=== PATIENT | female | born 1990 | race Caucasian/White ===

== ENCOUNTER 2016-11-21 19:23 | Emergency (ER) | payer MEDICAID, OTHER ==
[2016-11-21 19:59] VITALS: BP 110/69
--- NOTE | 2016-11-21 20:24 | UC ---
Abdominal Pain Female HPI - HPI Summary HPI Summary: The patient comes in today for: 1. Abdominal pain: Onset: 3 days ago getting stronger over the last 3 days. Palliative/provocative: Pressing on it makes it worse. Just sitting it is better. Picking up daughter makes it worse. Quality: Cramping. Region: LLQ Severity: 2/10 initially, and 4/10 this AM. Now at just sittin/10. With pushin/10 Time: Constant. Associated symptoms: LMP: 2 weeks ago. Vaginal discharge: Normal. Vomiting: None, but nausea is present. Diarrhea: None. Fevers: None Previous abdominal pain (history of ovarian cysts and appendectomy). Home treatment: Advil and Tylenol. * - History of Current Complaint Chief Complaint: UCAbdominalPain Stated Complaint: PAIN IN ABDOMIN Time Seen by Provider: 11/21/16 20:13 Hx Obtained From: Patient Hx Last Menstrual Period: 2 WEEKS AGO ?: No Allergies/Adverse Reactions: Allergies Allergy/AdvReac Type Severity Reaction Status Date / Time Prochlorperazine Allergy Severe facial Verified 11/21/16 19:59 [From Compazine] droop, slurred speech Sulfa Drugs Allergy Severe Hives Verified 11/21/16 19:59 Clindamycin Allergy Mild Rash Verified 11/21/16 19:59 Home Medications: Home Medications Amitriptyline TAB* [Elavil TAB*] 11/21/16 [History Confirmed 11/21/16] Ibuprofen TAB* [Advil TAB*] 600 mg PO PRN 11/21/16 [History] PMH/Surg Hx/FS Hx/Imm Hx Endocrine History Of: Denies: Diabetes, Thyroid Disease Cardiovascular History Of: Reports: Cardiac Disorders - Tachycardia. Heart muscle which "stiffens" on K+ Denies: Hypertension, Pacemaker/ICD, Congestive Heart Failure Respiratory History Of: Reports: Asthma Denies: COPD, Bronchitis, Pneumonia, Pulmonary Embolism GI/ History Of: Reports: Kidney Stones - LAST STONE 1 YR AGO Denies: Ulcer, Renal Disease Neurological History Of: Reports: Seizures - pseudo seizures and "seizures when I was younger--18.", Migraine Denies: TIA, CVA, Dementia Psychological History Of: Reports: Anxiety, Depression, Bipolar Disorder, Post Traumatic Stress Disorder Denies: Schizophrenia Cancer History Of: Denies: Lung Cancer, Colorectal Cancer, Breast Cancer, Prostate Cancer, Cervical Cancer Other History Of: Negative For: HIV, Hepatitis B, Hepatitis C, Anticoagulant Therapy - Surgical History Surgical History: Yes Surgery Procedure, Year, and Place: APPENDECTOMY, 08/2014, Right ULNAR COLLATERAL LIGAMENT Sx 07/2015 - Family History Known Family History: Positive: Cardiac Disease, Hypertension, Other - Migraines - Social History Occupation: Employed Full-time Alcohol Use: None Substance Use Type: None Smoking Status (MU): Current Every Day Smoker Type: Cigarettes Amount Used/How Often: 1/2 PPD Length of Time of Smoking/Using Tobacco: 1.5 weeks Have You Smoked in the Last Year: Yes When Did the Patient Quit Smoking/Using Tobacco: Quitting currently Household Exposure Type: Cigarettes - Immunization History Most Recent Influenza Vaccination: 07/2015 Most Recent Tetanus Shot: 05/2014 Most Recent Pneumonia Vaccination: none Review of Systems Constitutional: Negative Skin: Negative Eyes: Negative ENT: Negative Respiratory: Negative Gastrointestinal: Abdominal Pain Genitourinary: Negative All Other Systems Reviewed And Are Negative: Yes Physical Exam Triage Information Reviewed: Yes Appearance: Well-Appearing - She is smiling at times and animated., No Pain Distress, Well-Nourished Vital Signs: Initial Vital Signs Temp 98.1 F 11/21/16 19:55 Pulse 82 11/21/16 19:55 Resp 16 11/21/16 19:55 BP 110/69 11/21/16 19:55 Pulse Ox 100 11/21/16 19:55 Vital Signs Reviewed: Yes Eyes: Positive: Conjunctiva Clear. Negative: Discharge ENT: Positive: Hearing grossly normal. Negative: Pharyngeal erythema, Nasal congestion, Nasal drainage, TM bulging, TM dull, TM red, Tonsillar swelling, Tonsillar exudate Dental: Negative: Gross Decay/Caries @, Dental Fracture @ Neck: Positive: Supple, Nontender, No Lymphadenopathy. Negative: Nuchal Rigidity Respiratory: Positive: Lungs clear, No respiratory distress, No accessory muscle use. Negative: Crackles, Wheezing Cardiovascular: Positive: RRR, No Murmur Abdomen Description: Positive: No Organomegaly, Soft, Peritoneal Signs. Negative: Nontender - She has tenderness in the lower left quadrant. Her exam is hampered by increased adipose tissue. There is percussion tenderness and rebound. No masses or guarding or distension., CVA Tenderness (L), Distended, Guarding, McBurney's Point Tenderness, Pulsatile Mass Bowel Sounds: Positive: Present Musculoskeletal: Positive: Strength Intact, ROM Intact, No Edema Neurological: Positive: Alert, Muscle Tone Normal Psychological: Positive: Age Appropriate Behavior, Consolable Skin: Negative: rashes, breakdown Diagnostics - Laboratory Diagnostic Studies Completed/Ordered: Urine screen: Specific gravity: 1.020. WBC: 25. Nitrite: (-). Blood: (-). Protein: (-). Glucose: (-) Abd Pain Female Course/Dx - Course Course Of Treatment: The patient was told that I don't know for sure what is causing her abdominal. pain. The patient was also told that there are many causes for abdominal pain--. some which are benign and some which are life- threatening. Furthermore, it was. mentioned that the life-threatening causes of abdominal pain can present with. minimal, atypical, or even no symptoms. Becasue of these facts and the fact. that we don't have here all the testing methods commonly used to assess abdominal. pain, and their timely resuts, my recommendation is for the patient to go to. the [facility] ER. She was told of her options. At this time she wants to go home and call her primary care provider in the morning. She states that if she gets worse, she will go to the ER. - Differential Dx/Diagnosis Differential Diagnosis: Constipation, Other - zac Provider Diagnoses: Left lower quadrant abdominal pain etiology undetermined. Discharge - Discharge Plan Condition: Stable Disposition: AGAINST MEDICAL ADVICE Patient Education Materials: Acute Abdominal Pain (ED) Referrals: Alexandra Yarbrough, DO [Primary Care Provider] - As Soon As Possible (If you are not going to the ER tonight, please see your primary care provider as soon as you can. If you get worse, please re-consider going to the ER.)
== END 2016-11-21 20:55 | disposition left against medical advice (07) ==
LOC: UCEAST 19:23
DX: R10.32 Left lower quadrant pain (principal); Z88.1 Allergy status to other antibiotic agents; Z88.0 Allergy status to penicillin; Z88.8 Allergy status to other drugs, medicaments and biological substances; F17.210 Nicotine dependence, cigarettes, uncomplicated
CPT/HCPCS: 81002; 87086; 99212; G0463

== ENCOUNTER 2016-11-24 17:14 | Emergency (ER) | payer OTHER ==
[2016-11-24] MEDS ORDERED: Ondansetron INJ* 2 MG/ML VIAL IV ONE (19:06)
[2016-11-24] MEDS ORDERED: Morphine INJ* 4 MG/ML 1 ML CARPUJECT IV ONE (19:06)
[2016-11-24 19:33] LABS: Hematocrit 44 % (35-47); Hemoglobin 14.6 g/dl (12.0-16.0); Mean Corpuscular HGB Conc 33 g/dl (31-36); Mean Corpuscular Hemoglobin 26 pg (27-31); Mean Corpuscular Volume 80 fL (80-97); Mean Platelet Volume 9 um3 (7.4-10.4); Red Blood Count 5.54 10^6/ul (4.0-5.4); Red Cell Distribution Width 14 % (10.5-15); White Blood Count 10.3 10^3/ul (3.5-10.8)
[2016-11-24 19:48] LABS: Albumin 4.3 g/dL (3.2-5.2); BUN/Creatinine Ratio 11.1 (8-20); Calcium 9.5 mg/dL (8.6-10.3); EGFR African American 96.6 (>60); EGFR Non-African American 75.1 (>60); Globulin 3.3 g/dL (2-4); Potassium 3.7 mmol/L (3.5-5.0); Total Bilirubin 0.3 mg/dL (0.2-1.0); Total Protein 7.6 g/dL (6.4-8.9)
--- NOTE | 2016-11-24 21:11 | RAD ---
INDICATION: IV infiltration. Assess for potential vascular compromise COMPARISON: None TECHNIQUE: Duplex interrogation of the upper extremity was performed. FINDINGS: There is arterial patency documented from the subclavian artery through the radial/ulnar arteries. The velocities are normal normal and the waveforms are normal triphasic. The arterial velocities in CM per second are as follows: Subclavian artery-122; axillary artery-107; brachial artery-121; brachial artery at antecubital fossa-110; radial artery 55; ulnar artery 52 cm/s. There is diffuse fluid in the antecubital fossa but no significant localized hematoma. The largest area of fluid measures approximately 3 x 0.7 cm. IMPRESSION: Duplex interrogation of the arteries of the right upper extremity show no evidence of vascular compromise. There is no localized fluid collection at the site of infiltration but there is fluid infiltrating the soft tissues near the antecubital fossa.
--- NOTE | 2016-11-24 21:37 | HP ---
HISTORY AND PHYSICAL: DATE OF ADMISSION: 11/24/16 CHIEF COMPLAINT: Right arm pain. HISTORY OF PRESENT ILLNESS: Briefly, Paulette Tee is a 26-year-old female who was at CT earlier this morning when she was getting IV placed for a CT scan with contrast. The IV was placed under ultrasound guidance and was reportedly "deep". The IV extravasated and 139 cc of contrast were administered in the antecubital fossa. She immediately experienced numbing of the tips of the thumb and index finger. She had a lot of pain and paresthesias throughout the arm. She was initially monitored until about noon and then she was sent home with warm packs and told to elevate the arm. She has been elevating. She went to her class and tried to work through the pain. She has been having an increasing amount of pain. The pain and the swelling have worsened. It is beginning to track up the medial aspect of the arm. She has also noted an increase in numbness in other nerve distributions, namely now along the volar aspect of the radial 3 digits, the ulnar aspect of the hand but not fingers, and the radial aspect of the hand as well. She is able to gently flex and extend her elbow and wrist, but she is having a large amount of pain. She is very hypersensitive to touch and has burning type of pain. The pain she reports is a 10/10. PAST MEDICAL HISTORY: Significant for tachycardia as well as undiagnosed knee pain for which she is getting Cymbalta. PAST SURGICAL HISTORY: Significant for right thumb ulnar collateral ligament reconstruction, exploratory surgery on the lateral aspect of the forearm, appendectomy, and C-sections. MEDICATIONS: Include: 1. Potassium. 2. Metoprolol. 3. Cymbalta. ALLERGIES: SULFA DRUGS, PROCHLORPERAZINE and CLINDAMYCIN. SOCIAL HISTORY: She lives with her . She has a 2-year-old daughter. 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 Her mother is a nurse that works here at the hospital. She does smoke, she smokes about 5 to 10 cigarettes a day. REVIEW OF SYSTEMS: A 14-point review of systems is significant for the above complaint, numbness, tingling, as well as pain. No new injuries, no new illnesses. PHYSICAL EXAMINATION GENERAL: She is tearful, she is uncomfortable lying in the bed. She is able to converse and respond to my questions. She is alert and oriented x3. EOMI Chest is clear to auscultation bilaterally Abdomen soft and nontender EXTREMITIES: Examination of the right arm demonstrates the puncture wound is approximately 3 cm distal from the flexion crease. There is no obvious erythema or warmth there. She does have swelling that tracks along the volar aspect of the arm as well as somewhat medially proximal to the elbow. She is very tender to palpation all about the arm. She has exquisite sensitivity to touch even on the forearm both volarly and dorsally. She does have soft, compressible compartments but it is quite painful. She is able to gently flex and extend her elbow as well as her wrist and her digits; however, she does have pain. Passively I am able to do that too and she has pain with this but not more than active motion. She has palpable radial pulses, though it is not as easy to palpate as in the contralateral extremity, she has cap refill about 3 -4 seconds. Her extremity is cool, but is it pink and perfused. She is sensate to light touch, but is diminished along the median nerve distribution including the volar aspect of the index and long finger. She has diminished sensation along the first dorsal webspace rather and she is diminished on the ulnar aspect of the hand, but she is completely intact along the ulnar 2 digits , the ring finger and the small finger. She has a 2+ radial pulse. LABORATORY DATA: Labs were reviewed and are within normal limits. Her white count is 10.3, hematocrit of 44, platelets 270. Sodium is 135, potassium 3.7, chloride 103, carbon dioxide 25, BUN 10, creatinine 0.9, glucose is 83, and calcium 9.5. ASSESSMENT AND PLAN: I am concerned that she has either a vascular injury versus subcutanous fluid which is causing her pain. I do not think she meets the classic symptoms of compartment syndrome. I evaluated her with my partner, Dr Duffy, while the patient was undergoing ultrasound. She was found to have fluid in the subcutaneous tissues but not in the muscle. The fluid tracked along the forearm and mildly dorsally. She has a mild amount of fluid in the subcutaneous tissues along the arm medially and proximal to the elbow. She had patent flow of the vessels both in extension and flexion. She has compressible compartments and most of her pain is volar about where the injection occurred. I offered her compartment testing with the [employer] monitor but she declined and it would cause her more discomfort. A CK was also ordered. She should be placed in a removable posterior splint with ice/heat applied as well as compression. She should work on elbow, hand, and wrist ROM. I will see her in the office next week. [id number]/CPS #: [id number] MTDD
[2016-11-24] MEDS ORDERED: Ibuprofen TAB* 600 MG PO ONE (22:14)
[2016-11-24] MEDS ORDERED: diPHENhydraMINE PO* 50 MG PO ONE (22:15)
[2016-11-24 23:20] VITALS: BP 128/77
--- NOTE | 2016-11-28 23:28 | ED ---
Duane Saavedra Janilya, scribed for Jeramy Ley MD on 11/24/16 at 1925 . Upper Extremity Pain - HPI Summary HPI Summary: A 26 y/o female came in to [facility] presenting w/ a gradual onset of constant right arm pain starting today at approx [address] done for lower abd pain at outpatient radiology. Pt reports she had 120 mL contrast in antecubital space in elbow. Pt states it hurt and went numb at injection site. The pain somewhat subsided, however, the numbness remained. When pt arrived home , arm was swollen. Later, it turned purple and started blistering. The pain and swelling has progressively worsened. PMHx tachycardia PSHx Caesarean section, appendectomy SHx tobacco use. - History of Current Complaint Chief Complaint: EDExtremityUpper Stated Complaint: RT ARM SWOLLEN Time Seen by Provider: 11/24/16 18:37 Hx Obtained From: Patient Hx Last Menstrual Period: 2 WEEKS AGO Onset/Duration: Started Hours Ago, Atraumatic, Still Present Timing: Constant Severity Initially: Moderate Severity Currently: Moderate Pain Location: Elbow, Forearm, Wrist, Hand Character: Aching Aggravating Factor(s): Nothing Alleviating Factor(s): Nothing Associated Signs & Symptoms: Positive: Redness - Allergies/Home Medications Allergies/Adverse Reactions: Allergies Allergy/AdvReac Type Severity Reaction Status Date / Time Prochlorperazine Allergy Severe facial Verified 11/24/16 17:17 [From Compazine] droop, slurred speech Sulfa Drugs Allergy Severe Hives Verified 11/24/16 17:17 Clindamycin Allergy Mild Rash Verified 11/24/16 17:17 PMH/Surg Hx/FS Hx/Imm Hx Endocrine/Hematology History: Denies: Hx Anticoagulant Therapy, Hx Diabetes, Hx Thyroid Disease Cardiovascular History: Reports: Other Cardiovascular Problems/Disorders - heart murmur Denies: Hx Congestive Heart Failure, Hx Hypertension, Hx Pacemaker/ICD Respiratory History: Reports: Hx Asthma Denies: Hx Chronic Obstructive Pulmonary Disease (COPD), Hx Lung Cancer, Hx Pneumonia, Hx Pulmonary Embolism GI History: Denies: Hx Irritable Bowel, Hx Ulcer History: Reports: Hx Kidney Stones - LAST STONE 1 YR AGO, Other Problems/ Disorders - kidney stones Denies: Hx Renal Disease Musculoskeletal History: Reports: Hx Orthopedic Injury - right thumb ligament tear and reconstruction, Other Musculoskeletal History - RIGHT THUMB STRAIN/ SPRAIN Sensory History: Reports: Hx Contacts or Glasses - GLASSES Denies: Hx Hearing Aid Opthamlomology History: Reports: Hx Contacts or Glasses - GLASSES Neurological History: Reports: Hx Migraine, Hx Seizures - pseudo seizures and "seizures when I was younger--18." Denies: Hx Dementia, Hx Transient Ischemic Attacks (TIA) Psychiatric History: Reports: Hx Anxiety, Hx Eating Disorder, Hx Depression, Hx Bipolar Disorder, Hx of Violent Episodes Against Others Denies: Hx Panic Disorder, Hx Schizophrenia - Surgical History Surgery Procedure, Year, and Place: APPENDECTOMY, 08/2014, Right ULNAR COLLATERAL LIGAMENT Sx 07/2015 Hx Anesthesia Reactions: Yes - TOOK A LONG TIME TO WAKE UP AFTER APPY - Immunization History Date of Tetanus Vaccine: pt unknown Infectious Disease History: Yes Infectious Disease History: Reports: Hx Clostridium Difficile - hx c-diff - not active, Hx of Known/Suspected MRSA - Leg Denies: Hx Hepatitis, Hx Human Immunodeficiency Virus (HIV), Hx Shingles, Hx Tuberculosis, Hx Known/Suspected VRE, Hx Known/Suspected VRSA, History Other Infectious Disease, Traveled Outside the [place] in Last 30 Days - Family History Known Family History: Positive: Cardiac Disease, Hypertension, Other - Migraines - Social History Alcohol Use: None Substance Use Type: Reports: None Hx Tobacco Use: Yes Smoking Status (MU): Current Every Day Smoker Type: Cigarettes Amount Used/How Often: 1/2 PPD Length of Time of Smoking/Using Tobacco: 1.5 weeks Have You Smoked in the Last Year: Yes Review of Systems Negative: Fever, Chills Negative: Erythema Negative: Sore Throat Negative: Chest Pain Negative: Shortness Of Breath, Cough Negative: Abdominal Pain, Diarrhea, Nausea Negative: dysuria, hematuria Positive: Arthralgia - forearm, Myalgia - forearm, Edema - right forearm and right hand Positive: Other - blisters and erythema of right arm Positive: Numbness - of right forearm and down All Other Systems Reviewed And Are Negative: Yes Physical Exam - Summary Physical Exam Summary: Constitutional: Well-developed, Well-nourished, Alert. (-) Distressed Skin: Warm, Dry HENT: Normocephalic; Atraumatic Eyes: Conjunctiva normal Neck: Musculoskeletal ROM normal neck. (-) JVD, (-) Stridor, (-) Tracheal deviation Cardio: Rhythm regular, rate normal, Heart sounds normal; Intact distal pulses; The pedal pulses are 2+ and symmetric. Radial pulses are 2+ and symmetric. (-) Murmur Pulmonary/Chest wall: Effort normal. (-) Respiratory distress, (-) Wheezes, (-) Rales Abd: Soft, (-) Tenderness, (-) Distension, (-) Guarding, (-) Rebound Musculoskeletal: Distal to antecubital space intensely swollen. Hot to touch. Blisters. Exquisite pain with flexion of right wrist, mild discomfort with finger flexion. Fingers cool to touch. Capillary refill is 4 seconds, left side capillary refill is 2 seconds. Radial and ulnar pulses palpable. Lymph: (-) Cervical adenopathy Neuro: Alert, Oriented x3 Psych: Mood and affect Normal Triage Information Reviewed: Yes Vital Signs On Initial Exam: Initial Vitals Temp Pulse Resp BP Pulse Ox 98.3 F 110 18 128/85 100 11/24/16 17:17 11/24/16 17:17 11/24/16 17:17 11/24/16 17:17 11/24/16 17:17 Vital Signs Reviewed: Yes Procedures - Splinting Location: width - 3 in; length - 28 cm; right forearm Hand-Made Type: orthoglass Splint: posterior Pre-Proc Neuro Vasc Exam: normal Post-Proc Neuro Vasc Exam: normal, unchanged from pre-exam Diagnostics - Vital Signs Vital Signs Temp Pulse Resp BP Pulse Ox 11/24/16 17:17 98.3 F 110 18 128/85 100 - Laboratory Result Diagrams: 11/24/16 19:21 11/24/16 19:21 Lab Statement: Any lab studies that have been ordered have been reviewed, and results considered in the medical decision making process. - Ultrasound No standard instances Ultrasound Interpretation: No Acute Changes - IMPRESSION: Duplex interrogation of the arteries of the right upper extremity show no evidence of vascular compromise. There is no localized fluid collection at the site of infiltration but there is fluid infiltrating the soft tissues near the antecubital fossa. Ultrasound Interpretation Completed By: Radiologist Course/Dx - Diagnoses Provider Diagnoses: Paresthesia, IV infiltration - Physician Notifications Discussed Care Of Patient With: Dr. Lemon (ortho) at 1909: discussed the possibility of compartment syndrome. Dr. Lemon (ortho) at 2030: did not suspect compartment syndrome. Recommended posterior splint. Advised pt to see her in 2-3 days. Discharge - Discharge Plan Condition: Stable Disposition: HOME Prescriptions: traMADol TAB* [Ultram*] 25 mg PO Q6HR PRN #12 tab MDD 12 PRN Reason: Pain Scale 6-10 Patient Education Materials: Paresthesia (ED), IV Infiltration (ED) Forms: *Work Release Referrals: Alexandra Yarbrough DO [Primary Care Provider] - Vasiliy Lemon MD [Medical Doctor] - Additional Instructions: Take Benadryl and Ibuprofen as needed for swelling. Follow up with Dr. Lemon (ortho) in 2-3 days and follow up with your primary care provider in 48 hours. Return to the emergency department for changing or worsening symptoms. The documentation as recorded by the Duane merida Janilya accurately reflects the service I personally performed and the decisions made by me, Jeramy Ley MD.
== END 2016-11-24 23:22 | disposition home or self-care (01) ==
LOC: ED 17:14
DX: R20.9 Unspecified disturbances of skin sensation (principal); M25.569 Pain in unspecified knee; R00.0 Tachycardia, unspecified; F17.210 Nicotine dependence, cigarettes, uncomplicated; Z88.1 Allergy status to other antibiotic agents; Z88.2 Allergy status to sulfonamides
CPT/HCPCS: 36415; 80053; 82550; 85027; 96374; 99284; A9270-GY; J2270; J2405

== ENCOUNTER 2017-01-15 16:09 | Emergency (ER) | payer OTHER ==
[2017-01-15 16:47] VITALS: BP 113/50
[2017-01-15] MEDS ORDERED: Albuterol/Ipratropium NEB.SOL* Albuterol 2.5 MG/Ipratropium 0.5 MG 3 ML INH ONE (17:02)
--- NOTE | 2017-01-15 17:02 | UC ---
Respiratory Complaint HPI - HPI Summary HPI Summary: 4 days of worsening cough chest tightness and wheeze - History of Current Complaint Chief Complaint: UCRespiratory Stated Complaint: CONGESTION Time Seen by Provider: 01/15/17 16:48 Hx Obtained From: Patient Hx Last Menstrual Period: 12/01/16 ?: No Onset/Duration: Gradual Onset, Lasting Days - 4, Still Present Timing: Constant Severity Initially: Moderate Severity Currently: Moderate Pain Intensity: 7 Pain Scale Used: 0-10 Numeric Character: Cough: Productive Alleviating Factors: Nothing Associated Signs And Symptoms: Positive: Chills, Pleuritic Chest Pain - Allergies/Home Medications Allergies/Adverse Reactions: Allergies Allergy/AdvReac Type Severity Reaction Status Date / Time Prochlorperazine Allergy Severe facial Verified 01/15/17 16:47 [From Compazine] droop, slurred speech Sulfa Drugs Allergy Severe Hives Verified 01/15/17 16:47 Clindamycin Allergy Mild Rash Verified 01/15/17 16:47 PMH/Surg Hx/FS Hx/Imm Hx Previously Healthy: No Endocrine History Of: Denies: Diabetes, Thyroid Disease Cardiovascular History Of: Denies: Cardiac Disorders, Hypertension, Pacemaker/ICD, Congestive Heart Failure Respiratory History Of: Reports: Asthma Denies: COPD, Bronchitis, Pneumonia, Pulmonary Embolism GI/ History Of: Reports: Kidney Stones - LAST STONE 1 YR AGO Denies: Ulcer, Renal Disease Neurological History Of: Reports: Seizures - pseudo seizures and "seizures when I was younger--18.", Migraine Denies: TIA, CVA, Dementia Psychological History Of: Reports: Anxiety, Depression, Bipolar Disorder, Post Traumatic Stress Disorder Denies: Schizophrenia Cancer History Of: Denies: Lung Cancer, Colorectal Cancer, Breast Cancer, Prostate Cancer, Cervical Cancer Other History Of: Negative For: HIV, Hepatitis B, Hepatitis C, Anticoagulant Therapy - Surgical History Surgical History: Yes Surgery Procedure, Year, and Place: APPENDECTOMY, 08/2014, Right ULNAR COLLATERAL LIGAMENT Sx 07/2015 - Family History Known Family History: Positive: Cardiac Disease, Hypertension, Other - Migraines - Social History Occupation: Employed Full-time Lives: With Family Alcohol Use: None Substance Use Type: None Smoking Status (MU): Current Every Day Smoker Type: Cigarettes Amount Used/How Often: 1/2 PPD Length of Time of Smoking/Using Tobacco: 1.5 weeks Have You Smoked in the Last Year: Yes When Did the Patient Quit Smoking/Using Tobacco: Quitting currently Household Exposure Type: Cigarettes Cessation Counseling: Counseled 3+Min - 10 Min - Immunization History Most Recent Influenza Vaccination: 07/2015 Most Recent Tetanus Shot: 05/2014 Most Recent Pneumonia Vaccination: none Review of Systems Constitutional: Negative, Chills, Fatigue Skin: Negative Eyes: Negative ENT: Negative Respiratory: Shortness Of Breath, Cough Cardiovascular: Negative Gastrointestinal: Negative Genitourinary: Negative Motor: Negative Neurovascular: Negative Musculoskeletal: Negative Neurological: Negative Psychological: Negative All Other Systems Reviewed And Are Negative: Yes Physical Exam Triage Information Reviewed: Yes Appearance: Well-Appearing, No Pain Distress, Well-Nourished Vital Signs: Initial Vital Signs Temp 98.3 F 01/15/17 16:44 Pulse 75 01/15/17 16:44 Resp 18 01/15/17 16:44 BP 113/50 01/15/17 16:44 Pulse Ox 100 01/15/17 16:44 Vital Signs Reviewed: Yes Eye Exam: Normal Eyes: Positive: Conjunctiva Clear ENT Exam: Normal ENT: Positive: Normal ENT inspection, Hearing grossly normal, Pharynx normal, TMs normal. Negative: Nasal congestion, Nasal drainage, Tonsillar swelling, Tonsillar exudate, Trismus, Muffled/hoarse voice Dental Exam: Normal Neck exam: Normal Neck: Positive: Supple, Nontender, No Lymphadenopathy Respiratory Exam: Normal Respiratory: Positive: Chest non-tender, No respiratory distress, No accessory muscle use, Wheezing Cardiovascular Exam: Normal Cardiovascular: Positive: RRR, No Murmur, Pulses Normal, Brisk Capillary Refill Musculoskeletal Exam: Normal Musculoskeletal: Positive: Strength Intact, ROM Intact, No Edema Neurological Exam: Normal Neurological: Positive: Alert, Muscle Tone Normal Psychological Exam: Normal Skin Exam: Normal Diagnostic Evaluation - Laboratory O2 Sat by Pulse Oximetry: 100 Re-Evaluation - Re-Evaluation First Eval Change: Improved - increase airmovement feeling better Respiratory Course/Dx - Course Course Of Treatment: albuterol, prednisone, zithromax, nicotine dependant follow with pcp - Differential Dx/Diagnosis Differential Diagnosis/HQI/PQRI: Bronchitis, Exacerbation Of COPD, Influenza, Lower Resp Infection, Sinusitis Provider Diagnoses: acute exacerbation of bronchospasm, bronchitis, nicotine dependant Discharge - Discharge Plan Condition: Stable Disposition: HOME Prescriptions: Albuterol HFA INHALER* [Ventolin HFA Inhaler*] 2 puff INH Q4H PRN #1 mdi PRN Reason: cough/wheeze Azithromycin TAB* [Zithromax TAB (Z-LO) 250 mg #6 tabs] 2 tab PO .TODAY, THEN 1 DAILY #1 lo predniSONE TAB* [Deltasone TAB*] 10 mg PO DAILY #20 tab Patient Education Materials: Upper Respiratory Infection (ED), Bronchospasm (ED ) Referrals: Alexandra Yarbrough DO [Primary Care Provider] - If Needed
[2017-01-15] MEDS ORDERED: predniSONE TAB* 20 MG PO ONE (17:29)
== END 2017-01-15 17:44 | disposition home or self-care (01) ==
LOC: UCEAST 16:09
DX: J20.9 Acute bronchitis, unspecified (principal); Z88.1 Allergy status to other antibiotic agents; Z88.2 Allergy status to sulfonamides; Z88.8 Allergy status to other drugs, medicaments and biological substances; F17.210 Nicotine dependence, cigarettes, uncomplicated; Z71.6 Tobacco abuse counseling
CPT/HCPCS: 81025; 99212; A9270-GY; G0463; J7512

== ENCOUNTER 2017-03-04 16:15 | Emergency (ER) | payer SELFPAY ==
[2017-03-04 17:18] VITALS: BP 121/80
[2017-03-04] MEDS ORDERED: Ciprofloxacin TAB* 500 MG PO ONE (19:27)
--- NOTE | 2017-03-04 23:50 | UC ---
Anthony Saavedra Michael, scribed for Pippa Mann MD on 03/04/17 at 1921 . Complaint Female HPI - HPI Summary HPI Summary: 26 y/o female comes to Urgent Care presenting with left flank pain that started 2 weeks ago. The pt reports the flank pain has slightly alleviated. Currently, the flank pain is worse on the right side. She also states hematuria, dysuria, and increased frequency. She has a hx of kidney stones and believes she passed a stone. The pt also c/o confusion, a fever up to 102, and 3 sz episodes last night. The pt has a hx of sz but have not had an episode in several years. RN Notes noted and reviewed with pt. - History Of Current Complaint Chief Complaint: UCGU Stated Complaint: UTI SYMPTOMS Hx Obtained From: Patient, Medical Records Hx Last Menstrual Period: 01/29 Onset/Duration: Gradual Onset, Lasting Weeks, Still Present Timing: Constant Severity Initially: Moderate Severity Currently: Moderate Pain Intensity: 7 Pain Scale Used: 0-10 Numeric Character: Burning Aggravating Factor(s): Movement Alleviating Factor(s): Nothing Associated Signs And Symptoms: Negative: Negative - positive bilat flank pain. fever. confusion. sz. dysuria. hematuria. frequency. - Allergies/Home Medications Allergies/Adverse Reactions: Allergies Allergy/AdvReac Type Severity Reaction Status Date / Time Prochlorperazine Allergy Severe facial Verified 03/04/17 17:18 [From Compazine] droop, slurred speech Sulfa Drugs Allergy Severe Hives Verified 03/04/17 17:18 Clindamycin Allergy Mild Rash Verified 03/04/17 17:18 PMH/Surg Hx/FS Hx/Imm Hx Previously Healthy: No - see hpi Endocrine History Of: Denies: Diabetes, Thyroid Disease Cardiovascular History Of: Reports: Cardiac Disorders - tachycardia stage II distolic??? Denies: Hypertension, Pacemaker/ICD, Congestive Heart Failure Respiratory History Of: Reports: Asthma Denies: COPD, Bronchitis, Pneumonia, Pulmonary Embolism GI/ History Of: Reports: Kidney Stones - LAST STONE 1 YR AGO Denies: Ulcer, Renal Disease Neurological History Of: Reports: Seizures - pseudo seizures and "seizures when I was younger--18.", Migraine Denies: TIA, CVA, Dementia Psychological History Of: Reports: Anxiety, Depression, Bipolar Disorder, Post Traumatic Stress Disorder Denies: Schizophrenia Cancer History Of: Denies: Lung Cancer, Colorectal Cancer, Breast Cancer, Prostate Cancer, Cervical Cancer Other History Of: Negative For: HIV, Hepatitis B, Hepatitis C, Anticoagulant Therapy - Surgical History Surgical History: Yes Surgery Procedure, Year, and Place: APPENDECTOMY, 08/2014, Right ULNAR COLLATERAL LIGAMENT Sx 07/2015 - Family History Known Family History: Positive: Cardiac Disease, Hypertension, Other - Migraines - Social History Occupation: Student Lives: With Family Alcohol Use: None Substance Use Type: Marijuana Substance Use Comment - Amount & Last Used: 03/03/17 with seizures Smoking Status (MU): Current Every Day Smoker Type: Cigarettes Amount Used/How Often: 1/2 PPD Length of Time of Smoking/Using Tobacco: 14 years Have You Smoked in the Last Year: Yes When Did the Patient Quit Smoking/Using Tobacco: Quitting currently Household Exposure Type: Cigarettes - Immunization History Most Recent Influenza Vaccination: 07/2015 Most Recent Tetanus Shot: 05/2014 Most Recent Pneumonia Vaccination: none Review of Systems Constitutional: Fever Skin: Negative Eyes: Negative ENT: Negative Respiratory: Negative Cardiovascular: Negative Gastrointestinal: Negative Genitourinary: Dysuria, Hematuria, Frequency Motor: Negative Neurovascular: Negative Musculoskeletal: Other: - bilat flank pain Neurological: Other - confusion. sz. Psychological: Negative All Other Systems Reviewed And Are Negative: Yes Physical Exam Triage Information Reviewed: Yes Appearance: Well-Nourished - sitting up. Able to ambulate but slowly. NAD. Nontoxic appearance. Nondiaphoretic. Uncomfortable w/ exam, but tolerable. Vital Signs: Initial Vital Signs Temp 97.8 F 03/04/17 17:08 Pulse 73 03/04/17 17:08 Resp 18 03/04/17 17:08 BP 121/80 03/04/17 17:08 Pulse Ox 100 03/04/17 17:08 Vital Signs Reviewed: Yes Eye Exam: Normal ENT Exam: Normal Neck exam: Normal Respiratory Exam: Normal Respiratory: Positive: Chest non-tender, Lungs clear, Normal breath sounds, Wheezing - diffuse scattered mild expiratory wheeze (declines tx here, states has active new albuterol at home) Cardiovascular Exam: Normal - rate regular, good general skin color, good capillary refill Cardiovascular: Positive: RRR, No Murmur, Pulses Normal, Brisk Capillary Refill Abdominal Exam: Other - L cvat, some R cvat Abd soft. Otherwise nontender. + nabs. Abdomen Description: Positive: No Organomegaly, Soft Bowel Sounds: Positive: Present Musculoskeletal Exam: Normal Musculoskeletal: Positive: Strength Intact Neurological Exam: Normal - Normal: nonfocal, grossly intact CN2-12 intact Gait slow steady. Conversing easily and appropriately Psychological Exam: Normal - conversing easily and appropriately Skin Exam: Normal - no visible or reported rash Complaint Female Dx - Course Course Of Treatment: Reviewed urine dip. Cx sent. Pt thinks she may have passed a kidney stone, as suddenly felt better (but still hurts). Also reports hx kidney infection. As such, will start abx and pyridium (pt request). Blood work drawn (/ sz last night in addition to the above). She will call Dr. Medina's office on Tuesday to schedule f/u appt. Driving precautions. Go to the ED for any worse or new problems. Questions answered as posed to the best of my ability. - Differential Dx/Diagnosis Provider Diagnoses: Pyelonephritis. Flank pain Discharge - Discharge Plan Condition: Stable Disposition: HOME Prescriptions: DOXYcycline CAP(*) [DOXYcycline 100MG CAP(*)] 100 mg PO BID #20 cap Phenazopyridine 200 mg (NF) [Pyridium 200 MG tab] 200 mg PO TID PRN #12 tab PRN Reason: Pain Patient Education Materials: Flank Pain (ED), Recurrent Seizures in Adults (ED) Forms: *Work Release Referrals: Dorian Medina MD [Medical Doctor] - Alexandra Yarbrough DO [Primary Care Provider] - Additional Instructions: You should follow up with Dr. Yarbrough early next week. Please call the neurologist Dr. Medina on Tuesday for appointment next available. Please return to the ED if your symptoms worsen. Blood test today CBC, BMP Urine culture sent: blood was in your urine. This will need to be rechecked. The documentation as recorded by the Anthony merida Michael accurately reflects the service I personally performed and the decisions made by me, Pippa Mann MD.
[2017-03-05 14:50] LABS: Hematocrit 41 % (35-47); Hemoglobin 13.5 g/dl (12.0-16.0); Mean Corpuscular HGB Conc 33 g/dl (31-36); Mean Corpuscular Hemoglobin 26 pg (27-31); Mean Corpuscular Volume 81 fL (80-97); Mean Platelet Volume 9 um3 (7.4-10.4); Red Blood Count 5.14 10^6/ul (4.0-5.4); Red Cell Distribution Width 15 % (10.5-15); White Blood Count 10.5 10^3/ul (3.5-10.8)
[2017-03-05 15:01] LABS: BUN/Creatinine Ratio 16.5 (8-20); EGFR African American 112.3 (>60); EGFR Non-African American 87.3 (>60)
== END 2017-03-04 19:58 | disposition home or self-care (01) ==
LOC: UCEAST 16:15
DX: N12 Tubulo-interstitial nephritis, not specified as acute or chronic (principal); R10.32 Left lower quadrant pain; R00.0 Tachycardia, unspecified; J45.909 Unspecified asthma, uncomplicated; R56.9 Unspecified convulsions; F41.9 Anxiety disorder, unspecified; F33.9 Major depressive disorder, recurrent, unspecified; F43.10 Post-traumatic stress disorder, unspecified; F12.90 Cannabis use, unspecified, uncomplicated; F17.210 Nicotine dependence, cigarettes, uncomplicated; Z88.3 Allergy status to other anti-infective agents; Z88.2 Allergy status to sulfonamides; Z87.442 Personal history of urinary calculi
CPT/HCPCS: 36415; 80048; 81003; 84702; 85025; 87077; 87086; 87186; 99212; A9270-GY; G0463

== ENCOUNTER 2017-03-06 | Emergency (ER) | payer OTHER ==
[2017-03-06 02:33] VITALS: BP 101/66
[2017-03-06 03:58] LABS: Hematocrit 41 % (35-47); Hemoglobin 13.3 g/dl (12.0-16.0); Mean Corpuscular HGB Conc 32 g/dl (31-36); Mean Corpuscular Hemoglobin 26 pg (27-31); Mean Corpuscular Volume 80 fL (80-97); Mean Platelet Volume 8 um3 (7.4-10.4); Red Blood Count 5.19 10^6/ul (4.0-5.4); Red Cell Distribution Width 14 % (10.5-15); White Blood Count 12.9 10^3/ul (3.5-10.8)
[2017-03-06 04:05] LABS: Urine Bacteria Absent (Absent)
[2017-03-06 04:10] LABS: Albumin 3.8 g/dL (3.2-5.2); BUN/Creatinine Ratio 16.1 (8-20); Calcium 8.9 mg/dL (8.6-10.3); EGFR African American 100.4 (>60); EGFR Non-African American 78.1 (>60); Total Bilirubin 0.3 mg/dL (0.2-1.0); Total Protein 6.8 g/dL (6.4-8.9)
--- NOTE | 2017-03-06 06:31 | ED ---
Juanito Saavedra Aidan, scribed for Leonela Reynoldsuel on 03/06/17 at 0409 . Abdominal Pain/Female - HPI Summary HPI Summary: 26 y/o female presents to the ED with a complaint of acute, [id number] ( reported 07/10), intermittent episodes of lower abdominal pain. She went to the Urgent Care yesterday and was diagnosed with a UTI. She started antibiotics ( doxy) last night. Urinary symptoms include dysuria and increased frequency for the past 2 weeks. She also mentions feeling sluggish, having a mild fever for the past 4 days, and vomiting. - History of Current Complaint Chief Complaint: EDGeneral Stated Complaint: DX UTI/GENERAL ILLNESS Time Seen by Provider: 03/06/17 02:53 Hx Obtained From: Patient Hx Last Menstrual Period: 01/29 ?: No Onset/Duration: Sudden Onset, Lasting Hours - abdominal pain, Lasting Days - fever, Lasting Weeks - urinary symptoms Timing: Intermittent Episode Lasting - urinary symptoms, abdominal pain, fever has been constant, according to Pt Severity Initially: Moderate Severity Currently: Moderate Pain Intensity: 9 Pain Scale Used: 0-10 Numeric Location: Discrete At: RLQ, Discrete At: LLQ Character: Sharp Aggravating Factor(s): Other: - unknown Alleviating Factor(s): Other: - unknown Associated Signs and Symptoms: Positive: Fever, Vomiting, Other: - feeling sluggish, abdominal pain, dysuria, increased frequency - Risk Factors Ovarian Torsion Risk Factor: Reproductive Age Allergies/Adverse Reactions: Allergies Allergy/AdvReac Type Severity Reaction Status Date / Time Prochlorperazine Allergy Severe facial Verified 03/06/17 02:30 [From Compazine] droop, slurred speech Sulfa Drugs Allergy Severe Hives Verified 03/06/17 02:30 Clindamycin Allergy Mild Rash Verified 03/06/17 02:30 PMH/Surg Hx/FS Hx/Imm Hx Endocrine/Hematology History: Denies: Hx Anticoagulant Therapy, Hx Diabetes, Hx Thyroid Disease Cardiovascular History: Reports: Other Cardiovascular Problems/Disorders - heart murmur Denies: Hx Congestive Heart Failure, Hx Hypertension, Hx Pacemaker/ICD Respiratory History: Reports: Hx Asthma Denies: Hx Chronic Obstructive Pulmonary Disease (COPD), Hx Lung Cancer, Hx Pneumonia, Hx Pulmonary Embolism GI History: Denies: Hx Irritable Bowel, Hx Ulcer History: Reports: Hx Kidney Stones - LAST STONE 1 YR AGO, Other Problems/ Disorders - kidney stones Denies: Hx Renal Disease Musculoskeletal History: Reports: Hx Orthopedic Injury - right thumb ligament tear and reconstruction, Other Musculoskeletal History - RIGHT THUMB STRAIN/ SPRAIN Sensory History: Reports: Hx Contacts or Glasses - GLASSES Denies: Hx Hearing Aid Opthamlomology History: Reports: Hx Contacts or Glasses - GLASSES Neurological History: Reports: Hx Migraine, Hx Seizures - pseudo seizures and "seizures when I was younger--18." Denies: Hx Dementia, Hx Transient Ischemic Attacks (TIA) Psychiatric History: Reports: Hx Anxiety, Hx Eating Disorder, Hx Depression, Hx Bipolar Disorder, Hx of Violent Episodes Against Others Denies: Hx Panic Disorder, Hx Schizophrenia - Surgical History Surgery Procedure, Year, and Place: APPENDECTOMY, 08/2014, Right ULNAR COLLATERAL LIGAMENT Sx 07/2015 Hx Anesthesia Reactions: Yes - TOOK A LONG TIME TO WAKE UP AFTER APPY - Immunization History Date of Tetanus Vaccine: utd Date of Influenza Vaccine: unk Infectious Disease History: Yes Infectious Disease History: Reports: Hx Clostridium Difficile - hx c-diff - not active, Hx of Known/Suspected MRSA - mutiple places 2014 Denies: Hx Hepatitis, Hx Human Immunodeficiency Virus (HIV), Hx Shingles, Hx Tuberculosis, Hx Known/Suspected VRE, Hx Known/Suspected VRSA, History Other Infectious Disease, Traveled Outside the [place] in Last 30 Days - Family History Known Family History: Positive: Cardiac Disease, Hypertension, Other - Migraines - Social History Occupation: Employed Full-time Lives: With Family Alcohol Use: None Substance Use Type: Reports: Marijuana Substance Use Comment - Amount & Last Used: 03/03/17 with seizures Hx Tobacco Use: Yes Smoking Status (MU): Current Every Day Smoker Type: Cigarettes Amount Used/How Often: 1/2 PPD Length of Time of Smoking/Using Tobacco: 14 years Have You Smoked in the Last Year: Yes Review of Systems Positive: Fever, Other - feeling sluggish. Negative: Chills, Fatigue, Skin Diaphoresis Eyes: Negative ENT: Negative Cardiovascular: Negative Respiratory: Negative Positive: Abdominal Pain, Vomiting. Negative: Diarrhea, Nausea Positive: dysuria, frequency. Negative: burning, discharge, flank pain, hematuria, incontinence, pain, urgency Musculoskeletal: Negative Skin: Negative Neurological: Negative Psychological: Normal All Other Systems Reviewed And Are Negative: Yes Physical Exam Triage Information Reviewed: Yes Vital Signs On Initial Exam: Initial Vitals Temp Pulse Resp BP Pulse Ox 99.1 F 122 20 135/85 100 03/06/17 00:07 03/06/17 00:07 03/06/17 00:07 03/06/17 00:07 03/06/17 00:07 Vital Signs Reviewed: Yes Appearance: Positive: Well-Appearing, No Pain Distress Skin: Positive: Warm, Skin Color Reflects Adequate Perfusion, Dry Head/Face: Positive: Normal Head/Face Inspection Eyes: Positive: EOMI, RENÉE ENT: Positive: Normal ENT inspection Neck: Positive: Supple, Nontender Respiratory/Lung Sounds: Positive: Clear to Auscultation, Breath Sounds Present Cardiovascular: Positive: Normal, RRR, Pulses are Symmetrical in both Upper and Lower Extremities Abdomen Description: Positive: Soft, Other: - LLQ tenderness Bowel Sounds: Positive: Present Musculoskeletal: Positive: Normal, Strength/ROM Intact Neurological: Positive: Normal, Sensory/Motor Intact, Alert, Oriented to Person Place, Time Psychiatric: Positive: Affect/Mood Appropriate - Leela Coma Scale Coma Scale Total: 15 Diagnostics - Vital Signs Vital Signs Temp Pulse Resp BP Pulse Ox 03/06/17 02:25 99.2 F 111 14 101/66 97 03/06/17 00:07 99.1 F 122 20 135/85 100 - Laboratory Result Diagrams: 03/06/17 03:42 03/06/17 03:42 Lab Statement: Any lab studies that have been ordered have been reviewed, and results considered in the medical decision making process. - CT ABD/PEL CT CT Interpretation: No Acute Changes - IMPRESSION: SLIGHT INCREASE IN MILD RETROPERITONEAL ADENOPATHY IS NONSPECIFIC. NO EVIDENCE OF ACUTE PATHOLOGY. CT Interpretation Completed By: Radiologist - FAMILY DENTIST Abdominal Pain Fem Course/Dx - Course Course Of Treatment: 26 y/o female presents with abdominal pain. labs and CT scan were done and indicated UTI. She is already on abx. Recommended continuation of abx treatment and PCP follow up. - Diagnoses Provider Diagnoses: UTI (urinary tract infection), Abdominal pain Discharge - Discharge Plan Condition: Stable Disposition: HOME Discharge Disposition Comment: continuation of antibiotics is recommended. Please follow this up with PCP. Prescriptions: Ibuprofen TAB* [Motrin TAB* 600 MG] 600 mg PO Q8H PRN #20 tab PRN Reason: Pain Patient Education Materials: Urinary Tract Infection in Women (ED), Acute Abdominal Pain (ED) The documentation as recorded by the Juanito merida Aidan accurately reflects the service I personally performed and the decisions made by , Fitz Reynolds.
--- NOTE | 2017-03-06 12:14 | RAD ---
CLINICAL HISTORY: Left flank pain. Relevant surgical history includes appendectomy and a . COMPARISON: Most recent comparison CT is dated November 08, 2015 TECHNIQUE: Noncontrast CT examination of the abdomen and pelvis from the lung bases through the initial tuberosities. FINDINGS: VISUALIZED LUNG BASES: The visualized lung bases are grossly clear. There is no pleural effusion. ABDOMEN AND PELVIS: Evaluation of the solid organs and vasculature is limited without intravenous contrast. The liver, spleen, pancreas and adrenal glands are grossly normal in appearance. The gallbladder is normal. The kidneys are normal in appearance without focal mass, calcification or signs of hydronephrosis. The small and large bowel are not distended. Consistent with the patient's reported surgical history there is surgical material at the base of the cecum and the appendix is not visualized. Mesenteric and retroperitoneal lymph nodes are identified but none are pathologically dilated. Furthermore, the appearance is similar to the November 08, 2015 CT examination. The pelvic viscera is normal in appearance for the patient's age. The abdominal aorta and iliac arteries are normal in course and diameter. Degenerative changes include multilevel loss of intervertebral disc height involving the lower thoracic and lumbar spine.There are no sinister bone lesions. IMPRESSION: 1. No renal calculi, urinary obstruction or evidence of acute inflammatory change of the gastrointestinal tract. 2. Chronic, degenerative and iatrogenic findings described in the body the report.
== END 2017-03-06 07:14 | disposition home or self-care (01) ==
LOC: ED
DX: N39.0 Urinary tract infection, site not specified (principal); R50.9 Fever, unspecified; R11.10 Vomiting, unspecified; R10.84 Generalized abdominal pain; R30.0 Dysuria; F17.210 Nicotine dependence, cigarettes, uncomplicated
CPT/HCPCS: 36415; 74176; 80053; 81003; 81015; 83690; 84702; 85025; 99282

== ENCOUNTER 2017-05-16 12:25 | Emergency (ER) | payer OTHER ==
[2017-05-16 12:59] VITALS: BP 113/54
--- NOTE | 2017-05-16 14:50 | RAD ---
INDICATION: Pain and swelling. COMPARISON: None TECHNIQUE: Duplex interrogation of the Lowerextremity was performed. FINDINGS: Deep veins: The common femoral, great saphenous, profunda femoris, proximal, mid, and distal deep femoral, popliteal, posterior tibial, and peroneal veins are patent. There is normal compressibility, augmentation, and phasic flow. Superficial veins: There are no findings of superficial thrombophlebitis. Popliteal fossa:There is no evidence of a popliteal cyst. Soft tissues:There are no soft tissue abnormalities. IMPRESSION: Normal examination. No evidence of deep venous thrombosis
--- NOTE | 2017-05-16 15:29 | ED ---
Lower Extremity - HPI Summary HPI Summary: Patient presents with left lower leg pain since yesterday. Denies warmth and redness. Previous history of DVT. Ambulating without complications. Pain is 5/10, constant and feels like a aching. Denies pain behind the knee. She had recently increased her level of activity. She endorses travel history and recently quit smoking x 3 weeks ago. Denies smoking history or recent travel. Denies SOB or chest pain. - History of Current Complaint Chief Complaint: EDExtremityLower Stated Complaint: LT LEG SWELLING/PAIN Time Seen by Provider: 05/16/17 13:58 Hx Obtained From: Patient Hx Last Menstrual Period: 01/29 Onset of Pain: Immediate Onset/Duration: Hours Severity Initially: Moderate Severity Currently: Severe Pain Intensity: 3 Pain Scale Used: 0-10 Numeric Timing: Constant Location: Is Discrete @ - left lower extremity without erythema or warmth Associated Signs And Symptoms: Positive: Negative Aggravating Factor(s): Standing, Ambulation Alleviating Factor(s): Rest Able to Bear Weight: No - Risk Factors Gout Risk Factors: Negative DVT Risk Factors: Negative Septic Arthritis Risk Factor: Negative - Allergies/Home Medications Allergies/Adverse Reactions: Allergies Allergy/AdvReac Type Severity Reaction Status Date / Time Prochlorperazine Allergy Severe facial Verified 03/06/17 02:30 [From Compazine] droop, slurred speech Sulfa Drugs Allergy Severe Hives Verified 03/06/17 02:30 Clindamycin Allergy Mild Rash Verified 03/06/17 02:30 PMH/Surg Hx/FS Hx/Imm Hx Previously Healthy: Yes Endocrine/Hematology History: Denies: Hx Anticoagulant Therapy, Hx Diabetes, Hx Thyroid Disease Cardiovascular History: Reports: Other Cardiovascular Problems/Disorders - heart murmur Denies: Hx Congestive Heart Failure, Hx Hypertension, Hx Pacemaker/ICD Respiratory History: Reports: Hx Asthma Denies: Hx Chronic Obstructive Pulmonary Disease (COPD), Hx Lung Cancer, Hx Pneumonia, Hx Pulmonary Embolism GI History: Denies: Hx Irritable Bowel, Hx Ulcer History: Reports: Hx Kidney Stones - LAST STONE 1 YR AGO, Other Problems/ Disorders - kidney stones Denies: Hx Renal Disease Musculoskeletal History: Reports: Hx Orthopedic Injury - right thumb ligament tear and reconstruction, Other Musculoskeletal History - RIGHT THUMB STRAIN/ SPRAIN Sensory History: Reports: Hx Contacts or Glasses - GLASSES Denies: Hx Hearing Aid Opthamlomology History: Reports: Hx Contacts or Glasses - GLASSES Neurological History: Reports: Hx Migraine, Hx Seizures - pseudo seizures and "seizures when I was younger--18." Denies: Hx Dementia, Hx Transient Ischemic Attacks (TIA) Psychiatric History: Reports: Hx Anxiety, Hx Eating Disorder, Hx Depression, Hx Bipolar Disorder, Hx of Violent Episodes Against Others Denies: Hx Panic Disorder, Hx Schizophrenia - Surgical History Surgery Procedure, Year, and Place: APPENDECTOMY, 08/2014, Right ULNAR COLLATERAL LIGAMENT Sx 07/2015 Hx Anesthesia Reactions: Yes - TOOK A LONG TIME TO WAKE UP AFTER APPY - Immunization History Date of Tetanus Vaccine: utd Date of Influenza Vaccine: unk Infectious Disease History: No Infectious Disease History: Reports: Hx Clostridium Difficile - hx c-diff - not active, Hx of Known/Suspected MRSA - mutiple places 2014 Denies: Hx Hepatitis, Hx Human Immunodeficiency Virus (HIV), Hx Shingles, Hx Tuberculosis, Hx Known/Suspected VRE, Hx Known/Suspected VRSA, History Other Infectious Disease, Traveled Outside the [place] in Last 30 Days - Family History Known Family History: Positive: Cardiac Disease, Hypertension, Other - Migraines - Social History Occupation: Employed Full-time Lives: With Family Alcohol Use: None Hx Substance Use: Yes Substance Use Type: Reports: Marijuana Substance Use Comment - Amount & Last Used: 03/03/17 with seizures Hx Tobacco Use: Yes Smoking Status (MU): Current Every Day Smoker Type: Cigarettes Amount Used/How Often: 1/2 PPD Length of Time of Smoking/Using Tobacco: 14 years Have You Smoked in the Last Year: Yes Review of Systems Constitutional: Negative Eyes: Negative Cardiovascular: Negative Respiratory: Negative Positive: no symptoms reported, see HPI Positive: Arthralgia, Myalgia Skin: Negative Neurological: Negative All Other Systems Reviewed And Are Negative: Yes Physical Exam Triage Information Reviewed: Yes Vital Signs On Initial Exam: Initial Vitals Temp Pulse Resp BP Pulse Ox 98.4 F 100 18 115/75 97 05/16/17 12:26 05/16/17 12:26 05/16/17 12:26 05/16/17 12:26 05/16/17 12:26 Vital Signs Reviewed: Yes Appearance: Positive: Well-Appearing, No Pain Distress, Well-Nourished Skin: Positive: Warm, Skin Color Reflects Adequate Perfusion Head/Face: Positive: Normal Head/Face Inspection Eyes: Positive: EOMI, RENÉE, Conjunctiva Clear Neck: Positive: Supple, Nontender, No Lymphadenopathy Respiratory/Lung Sounds: Positive: Clear to Auscultation, Breath Sounds Present Cardiovascular: Positive: Normal, RRR, Pulses are Symmetrical in both Upper and Lower Extremities Musculoskeletal: Positive: Pain @ - left lower calf pain Neurological: Positive: Sensory/Motor Intact, Alert, Oriented to Person Place, Time, Speech Normal Psychiatric: Positive: Normal AVPU Assessment: Alert - Moriah Coma Scale Coma Scale Total: 15 Diagnostics - Vital Signs Vital Signs Temp Pulse Resp BP Pulse Ox 05/16/17 12:58 98.3 F 92 12 113/54 98 05/16/17 12:26 98.4 F 100 18 115/75 97 - Laboratory Lab Statement: Any lab studies that have been ordered have been reviewed, and results considered in the medical decision making process. Lower Extremity Course/Dx - Course Course Of Treatment: US negative for DVT. left calf pain. No previous hx of DVT. Denies numbness, tingling, temperature or color changes to the area. treatment options discussed. encouraged ibuprofen 600mg three times daily and follow up with PCP. Likely muscle strain or overuse of the lower leg. Return precautions given. Patient understands and agrees with plan. Ok for discharge. - Diagnoses Differential Diagnosis/HQI/PQRI: Positive: Contusion, DVT, Fracture (Closed), Fracture (Open), Sprain, Strain Provider Diagnoses: Muscle strain Discharge - Discharge Plan Condition: Stable Disposition: HOME Patient Education Materials: Muscle Strain (ED) Referrals: Alexandra Yarbrough DO [Primary Care Provider] - Additional Instructions: Follow up with PCP If symptoms become worse, return to the ED immediately Ibuprofen 600mg three times daily Moist heat to the area
== END 2017-05-16 15:44 | disposition home or self-care (01) ==
LOC: ED 12:25
DX: M25.50 Pain in unspecified joint (principal); F17.210 Nicotine dependence, cigarettes, uncomplicated
CPT/HCPCS: 99282

== ENCOUNTER 2017-05-25 12:18 | Emergency (ER) | payer OTHER ==
--- NOTE | 2017-05-25 14:03 | UC ---
Abdominal Pain Female HPI - HPI Summary HPI Summary: Worsening left lower quadrant pain, no vaginal discharge no urinary sx no fever , no nausea, vomiting or diarrhea - History of Current Complaint Hx Obtained From: Patient Hx Last Menstrual Period: 2 this year ?: No Onset/Duration: Gradual Onset, Lasting Weeks - 1, Still Present, Worse Since - today Timing: Constant Severity Initially: Moderate Severity Currently: Moderate Pain Intensity: 8 Pain Scale Used: 0-10 Numeric Location: Discrete At: LLQ Radiates: No Character: Colicy, Cramping Aggravating Factor(s): Movement Alleviating Factor(s): Nothing Associated Signs and Symptoms: Positive: Negative - Risk Factors Ectopic Risk Factor: Negative Ovarian Torsion Risk Factor: Negative <Shonda Hale - Last Filed: 05/26/17 18:56> <Selena Rossi - Last Filed: 05/26/17 20:43> <Felicita Arizmendi - Last Filed: 05/30/17 21:11> - History of Current Complaint Chief Complaint: UCAbdominalPain Stated Complaint: LOWER ABD PAIN Time Seen by Provider: 05/25/17 13:55 Allergies/Adverse Reactions: Allergies Allergy/AdvReac Type Severity Reaction Status Date / Time Prochlorperazine Allergy Severe facial Verified 05/27/17 07:28 [From Compazine] droop, slurred speech Sulfa Drugs Allergy Severe Hives Verified 05/27/17 07:28 Clindamycin Allergy Mild Rash Verified 05/27/17 07:28 PMH/Surg Hx/FS Hx/Imm Hx Previously Healthy: No - Menstrual Irregularities Respiratory History: Asthma Psychological History: Depression Other History Of: Negative For: HIV, Hepatitis B, Hepatitis C, Anticoagulant Therapy - Surgical History Surgical History: Yes Surgery Procedure, Year, and Place: APPENDECTOMY, 08/2014, Right ULNAR COLLATERAL LIGAMENT Sx 07/2015 - Family History Known Family History: Positive: Cardiac Disease, Hypertension, Other - Migraines - Social History Occupation: Student Lives: With Family Alcohol Use: None Substance Use Type: Marijuana Substance Use Comment - Amount & Last Used: 03/03/17 with seizures Smoking Status (MU): Former Smoker Type: Cigarettes Amount Used/How Often: 1/2 PPD Length of Time of Smoking/Using Tobacco: 14 years Have You Smoked in the Last Year: Yes When Did the Patient Quit Smoking/Using Tobacco: Quitting currently Household Exposure Type: Cigarettes - Immunization History Most Recent Influenza Vaccination: 07/2015 Most Recent Tetanus Shot: 05/2014 Most Recent Pneumonia Vaccination: none <BrianaShonda roberts - Last Filed: 05/26/17 18:56> Previously Healthy: Yes Respiratory History: Asthma Psychological History: Depression <CamachoKarimeFelicita - Last Filed: 05/30/17 21:11> Review of Systems Constitutional: Negative Skin: Negative Eyes: Negative ENT: Negative Respiratory: Negative Cardiovascular: Negative Gastrointestinal: Negative, Abdominal Pain - llq Genitourinary: Negative Motor: Negative Neurovascular: Negative Musculoskeletal: Negative Neurological: Negative Psychological: Negative All Other Systems Reviewed And Are Negative: Yes <Shonda Hale - Last Filed: 05/26/17 18:56> Physical Exam Triage Information Reviewed: Yes Appearance: Well-Appearing, Pain Distress - mild, Obese Vital Signs: Initial Vital Signs Temp 98.4 F 05/25/17 12:38 Pulse 82 05/25/17 12:38 Resp 18 05/25/17 12:38 Pulse Ox 100 05/25/17 12:38 Vital Signs Reviewed: Yes Eye Exam: Normal Eyes: Positive: Conjunctiva Clear ENT Exam: Normal ENT: Positive: Normal ENT inspection, Hearing grossly normal. Negative: Nasal congestion, Nasal drainage, Trismus, Muffled/hoarse voice Dental Exam: Normal Neck exam: Normal Neck: Positive: Supple, Nontender Respiratory Exam: Normal Respiratory: Positive: Chest non-tender, Lungs clear, Normal breath sounds, No respiratory distress, No accessory muscle use Cardiovascular Exam: Normal Cardiovascular: Positive: RRR, Pulses Normal, Brisk Capillary Refill Abdominal Exam: Other Abdomen Description: Positive: No Organomegaly, Soft, Other: - LLQ. Negative: CVA Tenderness (R), CVA Tenderness (L) Bowel Sounds: Positive: Present Musculoskeletal Exam: Normal Musculoskeletal: Positive: Strength Intact, ROM Intact, No Edema Neurological Exam: Normal Neurological: Positive: Alert, Muscle Tone Normal Psychological Exam: Normal Skin Exam: Normal - Additional Comments no control, sexually active with <GeoffreyShonda - Last Filed: 05/26/17 18:56> Vital Signs: Initial Vital Signs Temp 98.4 F 05/25/17 12:38 Pulse 82 05/25/17 12:38 Resp 18 05/25/17 12:38 BP 146/87 05/25/17 12:38 Pulse Ox 100 05/25/17 12:38 <Selena Rossi - Last Filed: 05/26/17 20:43> Vital Signs: Initial Vital Signs Temp 98.4 F 05/25/17 12:38 Pulse 82 05/25/17 12:38 Resp 18 05/25/17 12:38 BP 146/87 05/25/17 12:38 Pulse Ox 100 05/25/17 12:38 <Felicita Arizmendi - Last Filed: 05/30/17 21:11> Re-Evaluation - Re-Evaluation First Eval Change: Unchanged - Report to Felicita Ontiveros---Pt without C/o <Shonda Hale - Last Filed: 05/26/17 18:56> Abd Pain Female Course/Dx - Course Course Of Treatment: plan of treatment by Felicita Ontiveros, - Differential Dx/Diagnosis Differential Diagnosis: Appendicitis, Ectopic , Gall Bladder Disease, Irritable Bowel Syndrome, Ovarian Cyst, Renal Colic, Urinary Tract Infection Provider Diagnoses: acute abd pain, lumbar radicu. <Shonda Hale - Last Filed: 05/26/17 18:56> - Differential Dx/Diagnosis Provider Diagnoses: 1-Acute lower back pain w/ radiculopathy. 2-Elevated blood pressure w/o Hx of HTN <Felicita Arizmendi - Last Filed: 05/30/17 21:11> Discharge <Shonda Hale - Last Filed: 05/26/17 18:56> <Selena Rossi - Last Filed: 05/26/17 20:43> <Felicita Arizmendi - Last Filed: 05/30/17 21:11> - Discharge Plan Condition: Stable Disposition: HOME Prescriptions: Cyclobenzaprine TAB* [Flexeril 10 MG TAB*] 10 mg PO TID PRN #15 tab PRN Reason: Spasms - Back Methylprednisolone [Medrol Dosepak 4 MG*] 4 mg PO .SEE LO INSTRUCTION #1 tab Naproxen TAB* [Naprosyn 250 mg TAB*] 500 mg PO Q8H PRN #30 tab PRN Reason: Pain Patient Education Materials: Acute Abdominal Pain (ED), Lumbar Radiculopathy ( ED), Low Sodium Diet (ED) Referrals: Alexandra Yarbrough DO [Primary Care Provider] - 3 Days Betty Espitia MD [Medical Doctor] - 1 Week Additional Instructions: Please take medications as directed to alleviate symptoms of back pain. Please if abdominal pain increases, please go to the ER immediately. Otherwise f/u with PCP for further evaluation and treatment. Please Decrease salt in your diet and monitor your BP and f/u with your PCP for further management. Attestation Statement User Type: Provider - I was available for consult. This patient was seen by the advanced practice provider. The patient was not presented to, seen by, or examined by me.-Lupillo <Selena Rossi - Last Filed: 05/26/17 20:43>
[2017-05-25] MEDS ORDERED: HYDROcodone/ACETAMIN 5-325 MG* 1 TAB PO ONE (14:04)
[2017-05-25 14:49] VITALS: BP 122/61
--- NOTE | 2017-05-25 14:51 | RAD ---
INDICATION: Left lower quadrant pelvic pain. COMPARISON: Comparison is made with a prior pelvic ultrasound from November 08, 2015. TECHNIQUE: Multiple real-time transvaginal images of the pelvis were obtained. FINDINGS: The uterus is normal in size, shape and echogenicity. The uterus measured 8.5 x 3.4 x 5.0 cm. The endometrial echo measured 1.0 cm in thickness. There is fluid within the endocervical canal. The right ovary measured 3.5 x 2.4 x 3.2 cm. The left ovary measured 3.6 x 2.1 x 2.5 cm. There is vascular flow within both ovaries. No free intraperitoneal fluid is seen. IMPRESSION: NO EVIDENCE FOR ACUTE FINDING.
--- NOTE | 2017-05-30 21:17 | ED ---
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 Patient is a 26 y/o female presents to the urgent care c/o intermittent LLQ abdominal pain for the past month. Pain is 6/10 w/ radiation to the back. Pain is described as sharp. Pt reports she has HX of radiculopathy. LMP: 2013 w/ irregular menstrual cycles. Pt denies fever, urinary symptoms, SOB, N/V/ D, chest pain, vaginal discharge, vaginal bleeding. Physical Exam: Vital Signs Reviewed: Yes Eye Exam: Normal Eyes: Positive: Conjunctiva Clear - PERRLA, EOMI, fundi grossly normal ENT Exam: Normal ENT: Positive: Normal ENT inspection, Hearing grossly normal, Pharynx normal, TMs normal Dental Exam: Normal Neck exam: Normal Neck: Positive: Supple, Nontender, No Lymphadenopathy Respiratory Exam: Normal Respiratory: Positive: Chest non-tender, Lungs clear, Normal breath sounds Cardiovascular Exam: Normal Cardiovascular: Positive: RRR, No Murmur, Pulses Normal Abdominal Exam: Normal Abdomen Description: Positive: Nontender - RLQ and LLQ, No Organomegaly, Soft. Negative: CVA Tenderness (R), CVA Tenderness (L) Bowel Sounds: Positive: Present Musculoskeletal: Positive: Other: - BACK: Patient is walking w/ symmetric ambulation, No signs of limping, antalgic, able to bear weight. No signs of trauma, No masses palpated. Point tenderness at the level of L-5-S1 and left side of gluteus. No CVAT, no flank ecchymosis . No sacroiliac notch tenderness, No saddle anesthesia.ROM: limited flexion/ extension/ lateral bending and rotation due to pain, Straight Leg Raise: positive on the left leg. Patellar reflexes: brisk, symmetric Muscle strength lower extremities. Dorsiflexion/ plantar flexion of ankles. Heel/ toe walk. Lower extremities: Femoral, popliteal , posterior tibial, and dorsalis pedis pulses WNL. Neurological Exam: Normal Psychological Exam: Normal Skin Exam: Normal <Felicita Arizmendi - Last Filed: 05/30/17 21:12> Re-Evaluation - Re-Evaluation First Eval Change: Unchanged - Report to Felicita Ontiveros---Pt without C/o <Felicita Arizmendi - Last Filed: 05/30/17 21:12> Course/Dx - Course Course Of Treatment: 26 y/o female presents to the urgent care c/o LLQ abdominal pain on and off for the past month. Pain is 6/10 w/ radiation to the back. Pt reports she has HX of radiculopathy. LMP: 01/2014 w/ irregular menstrual cycles. Pt denies fever, urinary symptoms, SOB, N/V/D, chest pain, vaginal discharge, vaginal bleeding. PE abnormal findings: BACK: Patient is walking w/ symmetric ambulation, No signs of limping, antalgic, able to bear weight. No signs of trauma, No masses palpated. Point tenderness at the level of L-5-S1 and left side of gluteus. No CVAT, no flank ecchymosis . No sacroiliac notch tenderness, No saddle anesthesia.ROM: limited flexion/ extension/ lateral bending and rotation due to pain, Straight Leg Raise: positive on the left leg. Patellar reflexes: brisk, symmetric Muscle strength lower extremities. Dorsiflexion/ plantar flexion of ankles. Heel/ toe walk. Lower extremities: Femoral, popliteal, posterior tibial, and dorsalis pedis pulses WNL. Pelvic US ordered, Result: No evidence of acute findings. I believe that patients symptoms are secondary to exacerbation of back pain with sciatica. While doing the PE, Acute back pain w/ radiculopathy was observed. She was discharged home with Medrol dose juliane, Flexeril and Naproxen PO to alleviate symptoms. Pt BP elevated today, advised to decrease salt intake and monitor BP. Advised patient to f/u with her PCP for further evaluation and treatment if symptoms do not improve. All concerns and questions from the patient were addressed. <Felicita Arizmendi - Last Filed: 05/30/17 21:12> <Selena Rossi - Last Filed: 05/31/17 08:35> - Diagnoses Provider Diagnoses: Acute lower back pain with radiculopathy, Elevated blood pressure reading without diagnosis of hypertension Attestation Statement User Type: Provider - I was available for consult. This patient was seen by the advanced practice provider. The patient was not presented to, seen by, or examined by me.-Lupillo <Selena Rossi - Last Filed: 05/31/17 08:35>
== END 2017-05-25 15:45 | disposition home or self-care (01) ==
LOC: UCEAST 12:18
DX: M54.16 Radiculopathy, lumbar region (principal); R10.32 Left lower quadrant pain; Z32.02 Encounter for pregnancy test, result negative; R03.0 Elevated blood-pressure reading, without diagnosis of hypertension; Z88.1 Allergy status to other antibiotic agents; Z72.0 Tobacco use; Z88.2 Allergy status to sulfonamides
CPT/HCPCS: 76830; 81003; 84702; 99212; G0463

== ENCOUNTER 2017-05-27 07:15 | Emergency (ER) | payer OTHER ==
[2017-05-27 07:27] VITALS: BP 135/85
--- NOTE | 2017-05-27 07:56 | UC ---
UC General HPI - HPI Summary HPI Summary: PT REPORTS OVER A MONTH OF PELVIC PAIN. NO UNUSUAL VAGINAL DISCHARGE. NO FEVER. NO URINARY SX. SEEN HERE 2 DAYS AGO AND DX WITH ABD PAIN AND LUMBAR RADICULOPATHY. TX WITH MEDROL DOSE LO, FLEXERIL AND NAPROXEN - NONE OF WHICH SHE HAS TAKEN. YESTERDAY SHE DEVELOPED ST WITH TONSILLAR EXUDATES. ALSO FOUND OUT THAT HER IS HAVING A AFFAIR WITH AN IV DRUG USER. IS CONCERNED ABOUT STD. URINE HCG NEGATIVE 2 DAYS AGO. TRANSVAG US UNREMARKABLE. - History of Current Complaint Chief Complaint: UCGeneralIllness Stated Complaint: PELVIC PAIN SORE THROAT Time Seen by Provider: 05/27/17 07:33 Hx Obtained From: Patient Onset/Duration: Gradual Onset, Lasting Weeks, Still Present Timing: Constant Onset Severity: Moderate Current Severity: Moderate Pain Intensity: 7 Associated Signs & Symptoms: Negative: Back Pain, Dysuria, Nausea - Allergy/Home Medications Allergies/Adverse Reactions: Allergies Allergy/AdvReac Type Severity Reaction Status Date / Time Prochlorperazine Allergy Severe facial Verified 05/27/17 07:28 [From Compazine] droop, slurred speech Sulfa Drugs Allergy Severe Hives Verified 05/27/17 07:28 Clindamycin Allergy Mild Rash Verified 05/27/17 07:28 PMH/Surg Hx/FS Hx/Imm Hx Respiratory History: Asthma Other History Of: Negative For: HIV, Hepatitis B, Hepatitis C, Anticoagulant Therapy - Surgical History Surgical History: Yes Surgery Procedure, Year, and Place: APPENDECTOMY, 08/2014, Right ULNAR COLLATERAL LIGAMENT Sx 07/2015 - Family History Known Family History: Positive: Cardiac Disease, Hypertension, Other - Migraines - Social History Alcohol Use: None Substance Use Type: None Substance Use Comment - Amount & Last Used: PT denies use Smoking Status (MU): Heavy Every Day Tobacco Smoker Type: Cigarettes Amount Used/How Often: 1ppd Length of Time of Smoking/Using Tobacco: 14 years Have You Smoked in the Last Year: Yes When Did the Patient Quit Smoking/Using Tobacco: Quitting currently Household Exposure Type: Cigarettes - Immunization History Most Recent Influenza Vaccination: 07/2015 Most Recent Tetanus Shot: 05/2014 Most Recent Pneumonia Vaccination: none Review of Systems Constitutional: Negative ENT: Sore Throat Respiratory: Negative Cardiovascular: Negative Gastrointestinal: Negative Genitourinary: Other - PELVIC PAIN All Other Systems Reviewed And Are Negative: Yes Physical Exam Triage Information Reviewed: Yes Appearance: Well-Appearing, No Pain Distress, Well-Nourished Vital Signs: Initial Vital Signs Temp 99.2 F 05/27/17 07:19 Pulse 108 05/27/17 07:19 Resp 16 05/27/17 07:19 BP 135/85 05/27/17 07:19 Pulse Ox 100 05/27/17 07:19 Vital Signs Reviewed: Yes Eyes: Positive: Conjunctiva Clear ENT: Positive: Hearing grossly normal, Pharyngeal erythema, TMs normal, Tonsillar swelling, Tonsillar exudate Neck: Positive: Supple, Tenderness @ - SPFL CERVICAL LAD, Enlarged Nodes @ - SPFL CERVICAL LAD Respiratory Exam: Normal Cardiovascular Exam: Normal Abdomen Description: Positive: Soft Musculoskeletal: Positive: No Edema Neurological: Positive: Alert Psychological: Positive: Age Appropriate Behavior Skin: Negative: rashes UC Physical Exam Vital Signs On Initial Exam: Initial Vitals Temp Pulse Resp BP Pulse Ox 99.2 F 108 16 135/85 100 05/27/17 07:19 05/27/17 07:19 05/27/17 07:19 05/27/17 07:19 05/27/17 07:19 - Genitalia Exam Female Genitourinary: Normal External Exam, Vagina without Blood/Discharge, Genitalia without Lesions/Masses, Cervix Closed, Other - POSITIVE CERVICAL MOTION TENDERNESS Diagnostics - Laboratory Diagnostic Studies Completed/Ordered: URINE DIP SP. GR. 1.010, TRACE LEUKS Course/Dx - Differential Dx - Multi-Symptom Provider Diagnoses: 1. PRESUMPTIVE PID. 2. TONSILLITIS Discharge - Discharge Plan Condition: Stable Disposition: HOME Patient Education Materials: Pelvic Inflammatory Disease (ED), Sexually Transmitted Diseases (ED), Pharyngitis (ED), Tonsillitis (ED) Referrals: Alexandra Yarbrough, [Primary Care Provider] - If Needed Additional Instructions: YOU HAVE BEEN TREATED WITH 250 MG CEFTRIAXONE AND 1G AZITHROMYCIN TODAY. THIS WILL COVER YOU FOR GONORRHEA AND CHLAMYDIA. NO SEX FOR AT LEAST A WEEK. VAGINAL SWABS DONE FOR GONORRHEA, CHLAMYDIA AND VAGINITIS. THROAT SWAB FOR GONORRHEA AND CHLAMYDIA. RAPID STREP NEGATIVE. URINE SENT FOR CULTURE. BLOOD WORK SENT FOR HIV, SYPHILIS AND HEP C. FOLLOW-UP WITH YOUR PCP. IF YOUR BLOOD WORK COMES BACK NEGATIVE WOULD RECOMMEND REPEAT TESTING IN 6 MONTHS TO ENSURE NO SEROCONVERSION.
[2017-05-27] MEDS ORDERED: cefTRIAXone VIAL(*) 250 MG VIAL IM ONE (08:24)
[2017-05-27] MEDS ORDERED: Lidocaine 1% MPF* 2 ML VIAL INJ ONE (08:25)
[2017-05-27] MEDS ORDERED: Azithromycin TAB* 250 MG PO ONE (08:26)
--- NOTE | 2017-05-28 09:44 | UC ---
Progress - Progress Note Progress Note: PLS CALL PT. VAGINAL SWAB POSITIVE FOR GALLO. DIFLUCAN ERX SENT TO [facility]. - ANTONIO FORREST MD
[2017-05-30 11:28] LABS: Syphilis Index < 0.1 Index
--- NOTE | 2017-05-30 19:45 | ED ---
Progress - Progress Note Progress Note: PLS CALL PT. VAGINAL SWAB POSITIVE FOR GALLO. DIFLUCAN ERX SENT TO [facility]. - ANTONIO FORREST MD 05/30/17 LOOKS LIKE PATIENT CALLED. (+) GALLO, (-) GARDERNELLA, (-) UCX, (-) G /C THROAT, (-) G/C/TRICH , (-) SYPHILIS/HEP C/HIV 1 & 2 Course/Dx - Diagnoses Provider Diagnoses: STD (female)
== END 2017-05-27 09:03 | disposition home or self-care (01) ==
LOC: UCEAST 07:15
DX: R10.2 Pelvic and perineal pain (principal); B37.3 Candidiasis of vulva and vagina; J03.90 Acute tonsillitis, unspecified; Z72.0 Tobacco use
CPT/HCPCS: 36415; 81003; 86592; 86703; 86803; 87086; 87480; 87491; 87510; 87591; 87651; 87661; 96372; 99213; A9270-GY; G0463; J0696

== ENCOUNTER 2017-07-08 12:26 | Emergency (ER) | payer OTHER ==
[2017-07-08 12:39] VITALS: BP 122/69
--- NOTE | 2017-07-08 14:09 | UC ---
UC General HPI - HPI Summary HPI Summary: SWOLLEN GLANDS AND INTERMITTENT FEVER FOR ABOUT A WEEK. TMAX 100. DENIES ST, COUGH, N/V/D. HAS SOME SLIGHT EAR PAIN. FEELS THE SAME WHEN SHE HAD MONO. - History of Current Complaint Chief Complaint: UCGeneralIllness Stated Complaint: SWOLLEN GLANDS FATIQUE Time Seen by Provider: 07/08/17 13:24 Hx Obtained From: Patient Hx Last Menstrual Period: 06/27/17 Onset/Duration: Gradual Onset, Lasting Days, Still Present Timing: Constant Onset Severity: Moderate Current Severity: Moderate Pain Intensity: 6 - Allergy/Home Medications Allergies/Adverse Reactions: Allergies Allergy/AdvReac Type Severity Reaction Status Date / Time Prochlorperazine Allergy Severe facial Verified 07/08/17 12:40 [From Compazine] droop, slurred speech Sulfa Drugs Allergy Severe Hives Verified 07/08/17 12:40 Clindamycin Allergy Mild Rash Verified 07/08/17 12:40 PMH/Surg Hx/FS Hx/Imm Hx Respiratory History: Asthma Other Psychological History: BORDERLINE PERSONALITY Other History Of: Negative For: HIV, Hepatitis B, Hepatitis C, Anticoagulant Therapy - Surgical History Surgical History: Yes Surgery Procedure, Year, and Place: APPENDECTOMY, 08/2014, Right ULNAR COLLATERAL LIGAMENT Sx 07/2015 - Family History Known Family History: Positive: Cardiac Disease, Hypertension, Other - Migraines - Social History Alcohol Use: None Substance Use Type: None Substance Use Comment - Amount & Last Used: PT denies use Smoking Status (MU): Heavy Every Day Tobacco Smoker Type: Cigarettes Amount Used/How Often: 1ppd Length of Time of Smoking/Using Tobacco: 14 years Have You Smoked in the Last Year: Yes When Did the Patient Quit Smoking/Using Tobacco: Quitting currently Household Exposure Type: Cigarettes - Immunization History Most Recent Influenza Vaccination: 07/2015 Most Recent Tetanus Shot: 05/2014 Most Recent Pneumonia Vaccination: none Review of Systems Constitutional: Fever, Fatigue ENT: Negative Respiratory: Negative Cardiovascular: Negative Gastrointestinal: Negative All Other Systems Reviewed And Are Negative: Yes Physical Exam Triage Information Reviewed: Yes Appearance: No Pain Distress, Well-Nourished, Other: - APPEARS FATIGUED Vital Signs: Initial Vital Signs Temp 98.7 F 07/08/17 12:35 Pulse 94 07/08/17 12:35 Resp 16 07/08/17 12:35 BP 122/69 07/08/17 12:35 Pulse Ox 100 07/08/17 12:35 Vital Signs Reviewed: Yes Eyes: Positive: Conjunctiva Clear ENT: Positive: Hearing grossly normal, Pharynx normal, TMs normal. Negative: Tonsillar swelling, Tonsillar exudate Neck: Positive: Supple, Tenderness @ - SPFL CERVICAL TENDER LAD, Enlarged Nodes @ - SPFL CERVICAL TENDER LAD Respiratory Exam: Normal Cardiovascular Exam: Normal Abdomen Description: Positive: Soft Musculoskeletal: Positive: No Edema Neurological: Positive: Alert Psychological: Positive: Age Appropriate Behavior Skin: Negative: rashes Course/Dx - Differential Dx - Multi-Symptom Provider Diagnoses: SPFL CERVICAL LYMPHADENOPATHY Discharge - Discharge Plan Condition: Stable Disposition: HOME Patient Education Materials: Lymphadenopathy (ED) Referrals: Alexandra Yarbrough DO [Primary Care Provider] - If Needed Additional Instructions: WE WILL CHECK YOUR BLOOD COUNT AND TEST YOU FOR MONO TODAY. BE AWARE THAT THERE IS A CHANCE OF A FALSE NEGATIVE MONO TEST EARLY IN THE COURSE. EITHER WAY, MONO IS VIRAL AND JUST NEEDS TIME TO RESOLVE. NO ACUTE INTERVENTION INDICATED AT PRESENT. REST, HYDRATE, OTC MEDS NEEDED. FOLLOW-UP WITH YOUR PCP IF YOUR SYMPTOMS PERSIST FOR MORE THAN A WEEK.
[2017-07-08 14:11] LABS: EBV Response YES
[2017-07-08 18:49] LABS: Hematocrit 40 % (35-47); Hemoglobin 13.2 g/dl (12.0-16.0); Mean Corpuscular HGB Conc 33 g/dl (31-36); Mean Corpuscular Hemoglobin 27 pg (27-31); Mean Corpuscular Volume 82 fL (80-97); Mean Platelet Volume 8 um3 (7.4-10.4); Red Blood Count 4.86 10^6/ul (4.0-5.4); Red Cell Distribution Width 14 % (10.5-15); White Blood Count 10.8 10^3/ul (3.5-10.8)
[2017-07-08 19:19] LABS: Mono Internal Control QC Line Present
[2017-07-08 19:20] LABS: Manual Entry Verification MER0007
--- NOTE | 2017-07-09 08:01 | UC ---
Progress - Progress Note Progress Note: Tested for Sanders, was negative. Hx. is positive for mono. EBV requested, and pending. Elevate, slightly, monocxytes and monocyte percent (1.0 and 9.5). Call patient to check on clinical status. Benji Blanc MD
[2017-07-12 12:14] LABS: EBV Capsid Ag IgG Ab Positive (Negative); EBV Capsid Ag IgM Ab Negative (Negative)
== END 2017-07-08 14:05 | disposition home or self-care (01) ==
LOC: UCEAST 12:26
DX: R59.0 Localized enlarged lymph nodes (principal)
CPT/HCPCS: 36415; 85025; 86308; 86664; 86665; 99211; G0463

== ENCOUNTER 2017-10-17 09:00 | Emergency (ER) | payer OTHER ==
[2017-10-17 09:43] VITALS: BP 128/74
[2017-10-17] MEDS ORDERED: Albuterol 2.5 MG/3 ML NEB.SOL* (0.083%) INH ONE (09:52)
[2017-10-17] MEDS ORDERED: Ipratropium 0.5MG/2.5ML NEB* 0.5 MG/2.5 ML NEB.SOLN INH ONE (09:52)
[2017-10-17] MEDS ORDERED: predniSONE TAB* 20 MG PO ONE (09:53)
--- NOTE | 2017-10-17 10:14 | UC ---
Respiratory Complaint HPI - HPI Summary HPI Summary: 27 yo female with cough and wheeze x 3 days MDI no longer helping productive cough no f/c no CP - History of Current Complaint Chief Complaint: UCRespiratory Stated Complaint: COUGH Time Seen by Provider: 10/17/17 09:47 Hx Obtained From: Patient Hx Last Menstrual Period: pt states "sometime in Jul" Onset/Duration: Gradual Onset, Lasting Days Timing: Constant Severity Initially: Mild Severity Currently: Moderate Pain Intensity: 2 Character: Cough: Productive Aggravating Factors: Exertion, Deep Breaths Alleviating Factors: Bronchodilator - no longer helping Associated Signs And Symptoms: Positive: Dyspnea, Wheezing Related History: Similar Episode/Dx as: - bronchitis - Allergies/Home Medications Allergies/Adverse Reactions: Allergies Allergy/AdvReac Type Severity Reaction Status Date / Time Prochlorperazine Allergy Severe facial Verified 10/17/17 09:43 [From Compazine] droop, slurred speech Sulfa Drugs Allergy Severe Hives Verified 10/17/17 09:43 Clindamycin Allergy Mild Rash Verified 10/17/17 09:43 Home Medications: Home Medications Albuterol HFA INHALER* [Ventolin HFA Inhaler*] 2 puff INH Q4H PRN 10/17/17 [ History Confirmed 10/17/17] PMH/Surg Hx/FS Hx/Imm Hx Previously Healthy: Yes Cardiovascular History: Hypertension Respiratory History: Asthma, Bronchitis, Pneumonia Other History Of: Negative For: HIV, Hepatitis B, Hepatitis C, Anticoagulant Therapy - Surgical History Surgical History: Yes Surgery Procedure, Year, and Place: APPENDECTOMY, 08/2014, Right ULNAR COLLATERAL LIGAMENT Sx 07/2015 - Family History Known Family History: Positive: Cardiac Disease, Hypertension, Other - Migraines - Social History Alcohol Use: None Substance Use Type: None Substance Use Comment - Amount & Last Used: PT denies use Smoking Status (MU): Heavy Every Day Tobacco Smoker Type: Cigarettes Amount Used/How Often: 1ppd Length of Time of Smoking/Using Tobacco: at age 13 Have You Smoked in the Last Year: Yes When Did the Patient Quit Smoking/Using Tobacco: Quitting currently Household Exposure Type: Cigarettes Cessation Counseling: Patient Advised to Stop - Immunization History Most Recent Influenza Vaccination: 07/2015 Most Recent Tetanus Shot: 05/2014 Most Recent Pneumonia Vaccination: none Review of Systems Constitutional: Negative Skin: Negative Eyes: Negative ENT: Negative Respiratory: Cough - and wheeze Cardiovascular: Negative Gastrointestinal: Negative Genitourinary: Negative Motor: Negative Neurovascular: Negative Musculoskeletal: Negative Neurological: Negative Psychological: Negative Is Patient Immunocompromised?: No All Other Systems Reviewed And Are Negative: Yes Physical Exam Triage Information Reviewed: Yes Appearance: Well-Appearing, No Pain Distress, Well-Nourished Vital Signs: Initial Vital Signs Temp 97.7 F 10/17/17 09:36 Pulse 78 10/17/17 09:36 Resp 16 10/17/17 09:36 BP 128/74 10/17/17 09:36 Pulse Ox 99 10/17/17 09:36 Vital Signs Reviewed: Yes Eyes: Positive: Conjunctiva Clear ENT: Positive: Hearing grossly normal, Pharynx normal, Nasal drainage, TMs normal, Uvula midline. Negative: Nasal congestion, Tonsillar swelling, Tonsillar exudate, Trismus, Muffled voice, Hoarse voice Neck: Positive: Supple, Nontender, No Lymphadenopathy Respiratory: Positive: No respiratory distress, No accessory muscle use, Wheezing Cardiovascular: Positive: RRR, No Murmur Musculoskeletal: Positive: ROM Intact, No Edema Neurological: Positive: Alert Psychological Exam: Normal Skin Exam: Normal UC Diagnostic Evaluation - Laboratory O2 Sat by Pulse Oximetry: 99 - normal/not hypoxic Re-Evaluation - Re-Evaluation First Eval Re-Evaluation Time: 10:13 Change: Improved - lungs clear/better air movement Respiratory Course/Dx - Differential Dx/Diagnosis Provider Diagnoses: acute bronchitis. tobacco use/abuse Discharge - Discharge Plan Condition: Stable Disposition: HOME Prescriptions: Amoxicillin PO (*) [Amoxicillin 875 MG (*)] 875 mg PO BID #14 tab Prednisone [Deltasone] 40 mg PO DAILY #10 tab Patient Education Materials: Acute Bronchitis (ED) Forms: *Work Release Referrals: Alexandra Yarbrough DO [Primary Care Provider] - If Needed Additional Instructions: use inhaler as directed to ER for new or worsening symptoms recheck in 4 days if not completely better you need to stop smoking
== END 2017-10-17 10:33 | disposition home or self-care (01) ==
LOC: UCEAST 09:00
DX: J20.9 Acute bronchitis, unspecified (principal); J45.909 Unspecified asthma, uncomplicated; Z72.0 Tobacco use
CPT/HCPCS: 99212; G0463; J7512; J7644

== ENCOUNTER 2017-12-11 14:20 | Emergency (ER) | payer OTHER ==
[2017-12-11] MEDS ORDERED: Ketorolac INJ* 30 MG/ML 1 ML VIAL IV ONE (16:07)
--- OUTSIDE RECORDS SUMMARY | 2017-12-11 16:15 | XMS REPORT ---
:1990 External Reference #:[id number] Author Organization [facility] Address [address] [address] Phone [phone] Care Team Providers Name Role Phone Patient's Choice Care Team Information Director Commercial Sales Unavailable Alexandra Yarbrough DO Primary Care Physician Unavailable Payers Type Date Identification Numbers Payment Provider Subscriber Commercial Effective: Policy Number: Tyson Clemons Randal 2015 [id number] Group Name: [id number] [address] PayID: [id number] [place] [address] Workers Effective: Policy Number: State Insurance Paulette L Compensation 2016 [id number] Wade Tee Onset: 2015 Group Number: [id number] [address] [address] Group Name: [phone] [place] [address] PayID: [id number] Commercial Effective: Policy Number: Total Care/Traylor Paulette Clemons Randal 2014 [id number] [facility] Expires: 2015 PayID: [id number] [address] [address] [place] [address] Workers Expires: Policy Number: State Insurance Paulette L Compensation 2016 [id number] Wade Tee Onset: 2015 Group Number: [id number] [address] [address] PayID: [id number] [address] Workers Onset: Policy Number: Toby Caldwell L Compensation 2009 [id number] Krystle Tee PayID: [id number] [address] [place] [address] Problems Date Description Provider Status Onset: 11/26/2016 Pain in right arm Vasiliy Lemon MD Active Family History Date Family Member(s) Problem(s) Comments General Heart Disease General Cancer General heart disease, uncles and grandparents (maternal and paternal) Father Hypercholesterolemia Mother Osteoporosis Siblings 3 Siblings no known cardiac disease Social History Type Date Description Comments Marital Status 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 Cigarette Use Light tobacco smoker (10 or fewer cigarettes/day) ETOH Use Denies alcohol use Recreational Drug Use Denies Drug Use Smoking Light tobacco smoker (10 or 4-5 cigarettes per day fewer cigarettes/day) Daily Caffeine consumes chocolate occasionally Daily Caffeine Consumes on average 1 soda per day Exercise Type/Frequency Exercises regularly Allergies, Adverse Reactions, Alerts Date Description Reaction Status Severity Comments 02/19/2015 Clindamycin active 02/19/2015 Compazine active 02/19/2015 Bactrim active Medications Medication Date Status Form Strength Qnty SIG Indications Ordering Provider Sumatriptan 06/06/ Active Tablets 100mg 9tabs 1 tab G43.009 Dorian S. Succinate 2016 twice a , max 2 M.D. days a week Amitriptyline 10/21/ Active Tablets 10mg 60tabs take 1 R51 Dorian S. HCL 2016 tablets Hiko, every M.D. night at bedtime for 2 weeks then take 2 tablets at bedtime Klor-Con M20 09/09/ Active Tablets ER 20Meq 90tabs 1 by mouth R00.2 Qutaybeh 2016 every day Gill Kulkarni M.D. Metoprolol 05/28/ Active Tablets 25mg 60tabs 1 by mouth Qutaybjosseline Tartrate 2014 twic a day Gill Kulkarni M.D. Tylenol Extra / Active as Unknown Strength 0000 directed Ibuprofen / Active Capsules 200mg 2-3 tabs Unknown 0000 every 6 hours prn (rare use) Cymbalta / Active Caps DR 60mg 1 by mouth Unknown 0000 Part every day Diclofenac 12/22/ Hx Gel 1% 300gm Apply 1 Geri Sodium 2017 - gram to Duffy, 06/06/ affected M.D. 2017 area 4 times a day Pt states she has not started Heart 05/14/ Hx Radha Medication 2014 - Mcginnis-You 05/28/ Jonatan rowan 2015 [place] 05/14/ Hx Tablets 5-325mg 40tabs 1-2 by Radha 2015 - mouth Mcginnis-You 09/30/ every 4 Jonatan rowan 2015 hours as needed Robaxin-750 01/05/ Hx Tablets 750mg 40tabs 1-2 q8h Barney Croft 2009 - Sarai, 05/13/ Jonatan 2014 Lexapro 00/00/ Hx Tablets 10mg 1 by mouth Unknown 0000 - every day 2014 Lexapro 00/00/ Hx Tablets 10mg 1 by mouth Unknown 0000 - every day 2015 Nicotine Step 1 / Hx Unknown 0000 - 2015 Vital Signs Date Vital Result Comment 06/06/2017 Height 61 inches 5'1" Weight 245.00 lb Heart Rate 88 /min BP Systolic Sitting 116 mmHg BP Diastolic Sitting 70 mmHg Respiratory Rate 16 /min BMI (Body Mass Index) 46.3 kg/m2 02/10/2017 Height 61 inches 5'1" Weight 245.00 lb weighed today Heart Rate 84 /min BP Systolic 119 mmHg BP Diastolic 74 mmHg Respiratory Rate 18 /min Pain Level 6 BMI (Body Mass Index) 46.3 kg/m2 02/07/2017 Height 61 inches 5'1" Weight 243.00 lb with shoes Heart Rate 112 /min BP Systolic Sitting 126 mmHg LA lrg cuff BP Diastolic Sitting 76 mmHg LA lrg cuff BMI (Body Mass Index) 45.9 kg/m2 Ejection Fraction 55% - 60% echo 02/02/17 12/22/2016 Height 61 inches 5'1" Weight 230.00 lb Heart Rate 60 /min Respiratory Rate 16 /min Pain Level 0 BMI (Body Mass Index) 43.5 kg/m2 12/09/2016 Height 61 inches 5'1" Weight 230.00 lb Heart Rate 82 /min BP Systolic Sitting 120 mmHg BP Diastolic Sitting 78 mmHg Respiratory Rate 16 /min Body Temperature 97.5 F Pain Level 2 BMI (Body Mass Index) 43.5 kg/m2 11/26/2016 Height 61 inches 5'1" Weight 230.00 lb Respiratory Rate 16 /min Pain Level 2 BMI (Body Mass Index) 43.5 kg/m2 11/03/2016 Height 61 inches 5'1" Weight 230.00 lb Heart Rate 80 /min Respiratory Rate 16 /min Pain Level 7 BMI (Body Mass Index) 43.5 kg/m2 10/21/2016 Height 61 inches 5'1" Weight 237.00 lb Heart Rate 78 /min BP Systolic Sitting 116 mmHg BP Diastolic Sitting 70 mmHg BMI (Body Mass Index) 44.8 kg/m2 09/09/2016 Height 61 inches 5'1" Weight 237.75 lb with shoes Heart Rate 86 /min BP Systolic Sitting 118 mmHg LA reg cuff BP Diastolic Sitting 72 mmHg LA reg cuff BMI (Body Mass Index) 44.9 kg/m2 Ejection Fraction 55%-60% echo 08/09/16 07/28/2016 Height 61 inches 5'1" Weight 232.00 lb Heart Rate 72 /min BP Systolic Sitting 100 mmHg LA, reg BP Diastolic Sitting 74 mmHg LA, reg BMI (Body Mass Index) 43.8 kg/m2 Ejection Fraction 55%-60% 06/04/15 echo 02/18/2016 Height 61 inches 5'1" Weight 235.00 lb w/shoes Heart Rate 82 /min BP Systolic Sitting 110 mmHg LA lg cuff BP Diastolic Sitting 66 mmHg LA lg cuff BMI (Body Mass Index) 44.4 kg/m2 Ejection Fraction 55-60% echo 06/04/15 12/17/2015 Height 61 inches 5'1" Weight 220.00 lb Pain Level 2 BMI (Body Mass Index) 41.6 kg/m2 11/03/2015 Height 61 inches 5'1" Weight 220.00 lb Pain Level 4 BMI (Body Mass Index) 41.6 kg/m2 10/02/2015 Height 61 inches 5'1" Weight 220.00 lb Pain Level 4 BMI (Body Mass Index) 41.6 kg/m2 09/17/2015 Height 61 inches 5'1" Weight 220.00 lb Pain Level 4 BMI (Body Mass Index) 41.6 kg/m2 09/09/2015 Height 61 inches 5'1" Weight 220.00 lb Body Temperature 96.0 F BMI (Body Mass Index) 41.6 kg/m2 08/12/2015 Height 61 inches 5'1" Weight 220.00 lb Pain Level 3 BMI (Body Mass Index) 41.6 kg/m2 07/22/2015 Height 61 inches 5'1" Weight 220.00 lb Heart Rate 69 /min BP Systolic 99 mmHg BP Diastolic 69 mmHg BMI (Body Mass Index) 41.6 kg/m2 06/26/2015 Height 61 inches 5'1" Weight 223.00 lb Heart Rate 60 /min BP Systolic Sitting 112 mmHg LA, reg BP Diastolic Sitting 60 mmHg LA, reg BMI (Body Mass Index) 42.1 kg/m2 Ejection Fraction 55%-60% 06/04/15 echo 05/28/2015 Height 61 inches 5'1" Weight 217.00 lb Heart Rate 68 /min BP Systolic Sitting 100 mmHg LA, large BP Diastolic Sitting 68 mmHg LA, large BMI (Body Mass Index) 41.0 kg/m2 05/27/2015 Height 61 inches 5'1" Weight 220.00 lb Heart Rate 76 /min BP Systolic 105 mmHg BP Diastolic 72 mmHg BMI (Body Mass Index) 41.6 kg/m2 05/14/2015 Height 61 inches 5'1" Weight 220.00 lb Heart Rate 85 /min BP Systolic 104 mmHg BP Diastolic 70 mmHg BMI (Body Mass Index) 41.6 kg/m2 04/15/2015 Height 61 inches 5'1" Weight 190.00 lb Pain Level 6 BMI (Body Mass Index) 35.9 kg/m2 04/09/2015 Height 61 inches 5'1" Weight 190.00 lb Pain Level 2 BMI (Body Mass Index) 35.9 kg/m2 02/25/2015 Height 61 inches 5'1" Weight 190.00 lb Pain Level 3 BMI (Body Mass Index) 35.9 kg/m2 02/19/2015 Height 61 inches 5'1" Weight 190.00 lb Heart Rate 70 /min BP Systolic 100 mmHg BP Diastolic 70 mmHg Pain Level 5 BMI (Body Mass Index) 35.9 kg/m2 Results Test Date Test Result H/L Range Note Laboratory test 12/20/2013 Beta HCG Quantitative 466.91 IU/mL High 0.0- 5.0 1 finding C Reactive Protein 12.77 mg/L 2 Comp Metabolic Panel 12/20/2013 Sodium 136 mmol/L 133-145 Potassium 3.7 mmol/L 3.7-5.6 Chloride 106 mmol/L 101-111 Co2 Carbon Dioxide 25 mmol/L 22-32 Anion Gap 5 mmol/L 2-11 Glucose 65 mg/dL Low 70-100 Blood Urea Nitrogen 11 mg/dL 6-24 Creatinine 0.72 mg/dL 0.51-0.95 BUN/Creatinine Ratio 15.3 8-20 Calcium 8.5 mg/dL Low 8.6-10.3 Total Protein 5.9 g/dL Low 6.4-8.9 Albumin 3.7 g/dL 3.2-5.2 Globulin 2.2 g/dL 2-4 Albumin/Globulin Ratio 1.7 1-3 Total Bilirubin 0.30 mg/dL 0.2-1.0 Alkaline Phosphatase 40 U/L 34-104 Alt 10 U/L 7-52 Ast 11 U/L Low 13-39 Egfr Non- 99.5 >60 Egfr 128.0 >60 3 Type & Screen 12/20/2013 Patient Blood Type A Negative Antibody Screen NEGATIVE Laboratory test finding 12/20/2013 Serum Positive Negative 4 CBC Auto Diff 12/20/2013 White Blood Count 6.0 10^3/uL 4.8-10.8 Red Blood Count 4.68 10^6/uL 4.0-5.4 Hemoglobin 12.6 g/dL 12.0-16.0 Hematocrit 39 % 35-47 Mean Corpuscular Volume 82 fL 80-97 Mean Corpuscular Hemoglobin 27 pg 27-31 Mean Corpuscular HGB Conc 33 g/dL 31-36 Red Cell Distribution Width 15 % 10.5-15 Platelet Count 218 10^3/uL 150-450 Mean Platelet Volume 9 um3 7.4-10.4 Abs Neutrophils 3.7 10^3/uL 1.5-7.7 Abs Lymphocytes 1.3 10^3/uL 1.0-4.8 Abs Monocytes 0.8 10^3/uL 0-0.8 Abs Eosinophils 0.1 10^3/uL 0-0.6 Abs Basophils 0.1 10^3/uL 0-0.2 Abs Nucleated RBC 0.01 10^3/uL Granulocyte % 61.8 % 38-83 Lymphocyte % 21.9 % Low 25-47 Monocyte % 13.7 % High 1-9 Eosinophil % 1.4 % 0-6 Basophil % 1.2 % 0-2 Nucleated Red Blood Cells % 0.1 Urinalysis 12/20/2013 Urine Color Yellow Urine Appearance Clear Urine Specific [place] 1.025 1.010-1.030 Urine Esterase Negative Negative Urine Nitrate Negative Negative Urine Urobilinogen Negative E.U./dL Negative Urine Protein Negative mg/dL Negative Urine pH 6.0 5-9 Urine Blood Negative Negative Urine Ketones Negative mg/dL Negative Urine Bilirubin Negative Negative Urine Glucose Negative mg/dL Negative 1 <5.0 Negative 5.0 - 25.0 Indeterminate >25.0 Positive 2 Low risk: <1.0 mg/L Average risk: 1.0-3.0 mg/L High risk: >3.0 mg/L Acute inflammation: >10.0 mg/L 3 Because ethnic data is not always readily available, this report includes an eGFR for both -Americans and non- Americans. The National Kidney Disease Education Program (NKDEP) does not endorse the use of the MDRD equation for patients that are not between the ages of 18 and 70, are , have extremes of body size, muscle mass, or nutritional status, or are non- or non-. According to the National Kidney Foundation, irrespective of diagnosis, the stage of the disease is based on the level of kidney function: Stage Description GFR(mL/min/1.73 m(2)) 1 Kidney damage with normal or decreased GFR 90 2 Kidney damage with mild decrease in GFR 60-89 3 Moderate decrease in GFR 30-59 4 Severe decrease in GFR 15-29 5 Kidney failure <15 (or dialysis) 4 This test detects intact HCG only and is indicated for the early detection of . Procedures Date CPT Code Description Status 02/07/2017 87095 EKG Tracing & Interpretation Completed 02/02/2017 85982 Echocardiogram, Limited Study Completed 09/09/2016 44940 EKG Tracing & Interpretation Completed 08/13/2016 50741 Holter Monitor Review (24 hr)dr de oliveira & marla Completed only 08/12/2016 34929 ECG Monitor/Recording W/Visual Superimposition Scanning Completed 08/09/2016 74934 ECHO Transthoracic, Real-Time 2D With Doppler And Color Completed Flow 07/28/2016 67810 EKG Tracing & Interpretation Completed 09/17/2015 18846 Short Arm Cast Application Completed 08/12/2015 86764 Short Arm Cast Application Completed 07/31/2015 85155 Repair Of Collateral Ligament Metacarpophalangeal Or Completed Interphl JT 07/31/2015 32066 Repair Of Collateral Ligament Metacarpophalangeal Or Completed Interphl JT 07/31/2015 48655 Repair Of Collateral Ligament Metacarpophalangeal Or Completed Interphl JT 07/31/2015 72816 Repair Of Collateral Ligament Metacarpophalangeal Or Completed Interphl JT 06/23/2015 39147 Holter Monitor Review (24 hr)dr de oliveira &ampNishant gutiérrez Completed only 06/23/2015 66738 ECG Monitor/Recording W/Visual Superimposition Scanning Completed 06/20/2015 57243 ECHO Stress Test Incl Perf Contiuous ekg Monitoring Completed W/Phys Superv 06/18/2015 58284 Holter Monitor Review (24 hr)dr saundersamp; marla Completed only 06/18/2015 05565 ECG Monitor/Recording W/Visual Superimposition Scanning Completed 06/04/2015 38208 ECHO Transthoracic, Real-Time 2D With Doppler And Color Completed Flow 05/28/2015 89325 EKG Tracing & Interpretation Completed 02/25/2015 91528 Gauntlet Cast Application Completed 02/19/2015 19479 Gauntlet Cast Application Completed Encounters Type Date Location Provider CPT E/M Dx Office Visit 06/06/2017 [facility] Dorian Medina, 00055 G43.009 11:45a Services Of Polina Cheung G43.009 M54.2 M54.2 M54.16 M54.5 Office Visit 02/10/2017 10:30a [facility] Geri Duffy, 16914 S63.641S Of Amrita Cheung S53.31xD Office Visit 02/07/2017 4:20p [facility] Chayito Kulkarni, 13984 R00.2 Jonatan R00.0 E66.9 R94.31 Office Visit 12/22/2016 1:00p [facility] Jannet Oodnnell, 04253 M79.641 Of AkiMCathi RPA-C M79.641 M79.641 Office Visit 12/09/2016 10:45a [facility] [place] [address] M79.601 C.M.A. Office Visit 11/26/2016 9:45a [facility] [place] [address] M79.601 C.M.A. 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 R50.81 Office Visit 09/09/2016 11:00a [facility] TEDDY Bedolla 95050 E66.9 R00.2 R06.02 Office Visit 07/28/2016 1:40p [facility] Chayito Kulkarni 77813 R06.02 Jonatan R42 R94.31 R00.2 F17.210 Office Visit 02/18/2016 11:00a [facility] TEDDY Bedolla 42755 R00.2 E66.9 R00.0 Office Visit 12/17/2015 10:45a [facility] Geri Duffy, 62282 S53.31xD Of Amrita Cheung Office Visit 11/03/2015 10:00a [facility] Geri Duffy 13660 S53.31xD Of Amrita Cheung S53.31xD Office Visit 06/26/2015 4:40p [facility] Chayito Kulkarni, 36752 785.1 M.Saira 427.61 278.00 Office Visit 05/28/2015 12:00p [facility] Of Chayito Garland 31867 785.0 Polina Kulkarni M.D. 780.4 785.1 Office Visit 05/27/2015 9:30a [facility] Radha Eisenberg, 55049 354.2 Of Amrita Cheung Office Visit 04/15/2015 9:30a [facility] Radha Eisenberg 43247 841.1 Of Amrita Cheung 841.1 Office Visit 03/02/2010 2:00p [facility] Of Barney ChildressGildardo Moon, 43560 846.0 Polina Cheung Office Visit 01/29/2010 9:30a [facility] Barney ChildressGildardo Moon, 10388 847.2 Polina Cheung Office Visit 01/15/2010 2:00p [facility] Barney ChildressGildardo Moon, 38022 847.2 Polina Cheung Office Visit 01/05/2010 3:15p [facility] Of Barney ChildressGildardo Moon, 74928 847.2 Polina MDoris Plan of Care Future Appointment(s):01/05/2018 1:00 pm - Marva Trejo DNP, RN, AURICULAR ACUPUNCTURIST-BC at [facility]11/22/2017 - Kaylah Eason, MDR06.83 SnoringNew Orders:Sleep StudyFollow up:1 dmeniC40.01 Morbid (severe) obesity due to excess calories
[2017-12-11 16:44] LABS: ABS Basophils 0.1 10^3/ul (0-0.2); ABS Eosinophils 0.2 10^3/ul (0-0.6); ABS Lymphocytes 2.9 10^3/ul (1.0-4.8); ABS Monocytes 0.7 10^3/ul (0-0.8); ABS Nucleated RBC 0 10^3/ul; Eosinophil % 2.3 % (0-6); Hematocrit 40 % (35-47); Hemoglobin 13.1 g/dl (12.0-16.0); Mean Corpuscular HGB Conc 33 g/dl (31-36); Mean Corpuscular Hemoglobin 26 pg (27-31); Mean Corpuscular Volume 80 fL (80-97); Mean Platelet Volume 8 um3 (7.4-10.4); Nucleated Red Blood Cells % 0; Platelet Count 266 10^3/ul (150-450); Red Blood Count 4.99 10^6/ul (4.0-5.4); Red Cell Distribution Width 14 % (10.5-15); White Blood Count 8.9 10^3/ul (3.5-10.8)
[2017-12-11 16:45] LABS: Urine Appearance Clear; Urine Blood Negative (Negative); Urine Color Straw; Urine Ketones Negative (Negative); Urine Protein Negative (Negative); Urine Specific Gravity 1.004 (1.010-1.030); Urine Urobilinogen Negative (Negative)
[2017-12-11 16:59] LABS: EGFR Non-African American 85.4 (>60)
--- NOTE | 2017-12-11 17:24 | RAD ---
Indication: Chest pain. Asthma. Comparison: March 06, 2017 CT abdomen and September 27, 2016 chest radiograph. Technique: Upright AP 1634 hours Report: Clear lungs and pleural spaces. Negative for pneumothorax. The heart, pulmonary vasculature, and mediastinal contours are unremarkable. Unremarkable osseous structures and soft tissue contours. IMPRESSION: No evidence for acute intrathoracic disease.
[2017-12-11 17:47] VITALS: BP 102/81
--- NOTE | 2017-12-12 10:55 | ED ---
Shahida Saavedra Edward, scribed for Avinash Ontiveros MD on 12/11/17 at 1548 . HPI Chest Pain - HPI Summary HPI Summary: 27 y/o female presents to the ED c/o mid-sternal CP with radiation to the L shoulder and back starting earlier today. The pain was described as an aching pain and lasted a couple of minutes. Associated sx: SOB, dizziness, nausea, diaphoretic. The dizziness was aggravated when she stood up. Pt feels like she had just "run up a flight of stairs". The pt came and went a few times. PMHx tachycardia, stage II diastolic pseudo dysfunction. - History of Current Complaint Chief Complaint: EDChestPainROMI Time Seen by Provider: 12/11/17 15:40 Hx Obtained From: Patient Hx Last Menstrual Period: pt states "sometime in Jul" Onset/Duration: Started Hours Ago Timing: Intermittent, Lasting Minutes Initial Severity: Moderate Current Severity: None Pain Intensity: 5 Pain Scale Used: 0-10 Numeric Chest Pain Location: Mid Sternal Chest Pain Radiates: Yes Chest Pain Radiates To:: Back, Shoulder - L Character: Dull/Aching Alleviating Factor(s): Nothing Associated Signs and Symptoms: Positive: Chest Pain, Dizziness, Shortness of Breath, Diaphoresis, Nausea - Additional Pertinent History Primary Care Physician: [id number] - Allergy/Home Medications Allergies/Adverse Reactions: Allergies Allergy/AdvReac Type Severity Reaction Status Date / Time MS Prochlorperazine Allergy Severe facial Verified 10/17/17 09:43 [From Compazine] droop, slurred speech MS Sulfa Drugs [Sulfa Drugs] Allergy Severe Hives Verified 10/17/17 09:43 MS Clindamycin [Clindamycin] Allergy Mild Rash Verified 10/17/17 09:43 Home Medications: Home Medications Omeprazole CAP* [Prilosec CAP* 20 MG] 20 mg PO DAILY 12/11/17 [History Confirmed 12/11/17] Potassium Chlor TAB* [Klor Con ER TAB*] 20 meq PO DAILY 12/11/17 [History Confirmed 12/11/17] PMH/Surg Hx/FS Hx/Imm Hx Previously Healthy: No Endocrine/Hematology History: Denies: Hx Anticoagulant Therapy, Hx Diabetes, Hx Thyroid Disease Cardiovascular History: Reports: Hx Hypertension, Other Cardiovascular Problems/ Disorders - heart murmur Denies: Hx Congestive Heart Failure, Hx Pacemaker/ICD Respiratory History: Reports: Hx Asthma Denies: Hx Chronic Obstructive Pulmonary Disease (COPD), Hx Lung Cancer, Hx Pneumonia, Hx Pulmonary Embolism GI History: Denies: Hx Irritable Bowel, Hx Ulcer History: Reports: Hx Kidney Stones - LAST STONE 1 YR AGO, Other Problems/ Disorders - kidney stones Denies: Hx Renal Disease Musculoskeletal History: Reports: Hx Orthopedic Injury - right thumb ligament tear and reconstruction, Other Musculoskeletal History - RIGHT THUMB STRAIN/ SPRAIN Sensory History: Reports: Hx Contacts or Glasses - GLASSES Denies: Hx Hearing Aid Opthamlomology History: Reports: Hx Contacts or Glasses - GLASSES Neurological History: Reports: Hx Migraine, Hx Seizures - pseudo seizures and "seizures when I was younger--18." Denies: Hx Dementia, Hx Transient Ischemic Attacks (TIA) Psychiatric History: Reports: Hx Anxiety, Hx Eating Disorder, Hx Depression, Hx Bipolar Disorder, Hx of Violent Episodes Against Others Denies: Hx Panic Disorder, Hx Schizophrenia - Surgical History Surgery Procedure, Year, and Place: APPENDECTOMY, 08/2014, Right ULNAR COLLATERAL LIGAMENT Sx 07/2015 Hx Anesthesia Reactions: Yes - TOOK A LONG TIME TO WAKE UP AFTER APPY - Immunization History Date of Tetanus Vaccine: utd Date of Influenza Vaccine: unk Infectious Disease History: No Infectious Disease History: Reports: Hx Clostridium Difficile - hx c-diff - not active, Hx of Known/Suspected MRSA - mutiple places 2014, following tatoo on L shoulder Denies: Hx Hepatitis, Hx Human Immunodeficiency Virus (HIV), Hx Shingles, Hx Tuberculosis, Hx Known/Suspected VRE, Hx Known/Suspected VRSA, History Other Infectious Disease, Traveled Outside the [place] in Last 30 Days - Family History Known Family History: Positive: Cardiac Disease, Hypertension, Other - Migraines - Social History Alcohol Use: None Hx Substance Use: Yes Substance Use Type: Reports: None Substance Use Comment - Amount & Last Used: PT denies use Hx Tobacco Use: Yes Smoking Status (MU): Heavy Every Day Tobacco Smoker Type: Cigarettes Amount Used/How Often: 1ppd Length of Time of Smoking/Using Tobacco: at age 13 Have You Smoked in the Last Year: Yes Review of Systems Positive: Skin Diaphoresis Eyes: Negative ENT: Negative Positive: Chest Pain Positive: Shortness Of Breath Positive: Nausea Genitourinary: Negative Musculoskeletal: Negative Skin: Negative Neurological: Other - dizziness Psychological: Normal All Other Systems Reviewed And Are Negative: Yes Physical Exam - Summary Physical Exam Summary: VITAL SIGNS: Reviewed. GENERAL: Patient is an obese female who is lying comfortable in the stretcher. Patient is not in any acute respiratory distress. HEAD AND FACE: No signs of trauma. No ecchymosis, hematomas or skull depressions. No sinus tenderness. EYES: PERRLA, EOMI x 2, No injected conjunctiva, no nystagmus. EARS: Hearing grossly intact. Ear canals and tympanic membranes are within normal limits. MOUTH: Oropharynx within normal limits. NECK: Supple, trachea is midline, no adenopathy, no JVD, no carotid bruit, no c- spine tenderness, neck with full ROM. CHEST: Symmetric, no tenderness at palpation LUNGS: Clear to auscultation bilaterally. No wheezing or crackles. CVS: Regular rate and rhythm, S1 and S2 present, no murmurs or gallops appreciated. ABDOMEN: Soft, non-tender. No signs of distention. No rebound no guarding, and no masses palpated. Bowel sounds are normal. EXTREMITIES: FROM in all major joints, no edema, no cyanosis or clubbing. NEURO: Alert and oriented x 3. No acute neurological deficits. Speech is normal and follows commands. SKIN: Dry and warm Triage Information Reviewed: Yes Vital Signs On Initial Exam: Initial Vitals Temp Pulse Resp BP Pulse Ox 98.0 F 70 18 127/72 100 12/11/17 14:41 12/11/17 14:41 12/11/17 14:41 12/11/17 14:41 12/11/17 14:41 Vital Signs Reviewed: Yes Diagnostics - Vital Signs Vital Signs Temp Pulse Resp BP Pulse Ox 12/11/17 14:41 98.0 F 70 18 127/72 100 - Laboratory Result Diagrams: 12/11/17 16:30 12/11/17 16:30 Lab Statement: Any lab studies that have been ordered have been reviewed, and results considered in the medical decision making process. - Additional Comments Diagnostic Additional Comments: EKG - SR @ [address] elevations. Normal axis. Chest Pain Course/Dx - Course Assessment/Plan: 27 y/o female presents to the ED c/o mid-sternal CP with radiation to the L shoulder and back starting earlier today. The pain was described as an aching pain and lasted a couple of minutes. Associated sx: SOB , dizziness, nausea, diaphoretic. The dizziness was aggravated when she stood up. Pt feels like she had just "run up a flight of stairs". The pt came and went a few times. PMHx tachycardia, stage II diastolic pseudo dysfunction. Test results without significant abnormalities. Troponin negative. Pt given toradol for pain and sx resolved. I believe the pt has chest wall pain. Therefore the pt will be d/c home with f/u PCP. Pt instructed to return if sx worsens or returns. - Diagnoses Provider Diagnoses: Atypical chest pain Discharge - Discharge Plan Condition: Stable Disposition: HOME Prescriptions: Naproxen TAB* [Naprosyn 250 mg TAB*] 250 mg PO Q8H PRN #30 tab PRN Reason: Pain Patient Education Materials: Chest Pain (ED) Referrals: Alexandra Yarbrough DO [Primary Care Provider] - 4 Days (PLEASE F/U IN 3-5 DAYS) The documentation as recorded by the Shahida merida Edward accurately reflects the service I personally performed and the decisions made by me, Avinash Ontiveros MD.
== END 2017-12-11 17:45 | disposition home or self-care (01) ==
LOC: ED 14:20
DX: R07.89 Other chest pain (principal); F17.210 Nicotine dependence, cigarettes, uncomplicated; I10 Essential (primary) hypertension; J45.909 Unspecified asthma, uncomplicated
CPT/HCPCS: 36415; 71045; 80053; 81003; 82550; 83880; 84484; 84702; 85025; 93005; 96374; 99282; J1885

== ENCOUNTER 2018-02-01 11:37 | Emergency (ER) | payer OTHER ==
[2018-02-01 11:52] VITALS: BP 114/65
[2018-02-01] MEDS ORDERED: Ketorolac INJ* 60 MG/2 ML VIAL IM ONE (11:58)
--- OUTSIDE RECORDS SUMMARY | 2018-02-01 12:22 | XMS REPORT ---
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 Unavailable Alexandra Yarbrough DO Primary Care Physician Unavailable Payers Type Date Identification Numbers Payment Provider Subscriber Commercial Effective: Policy Number: Norridgepancho Clemons Randal 2015 [id number] Group Number: [id number] [address] PayID: [id number] [place] [address] Workers Effective: Policy Number: State Insurance Paulette L Compensation 2016 [id number] Wade Tee Onset: 2015 Group Number: [id number] [address] [address] Group Name: [id number] [place] [address] PayID: [facility] Commercial Effective: Policy Number: Traylor/Totalcare Paulette Tee 2014 [id number] Medicaid Expires: 2015 PayID: [id number] [address] [address] [place] [address] Workers Expires: Policy Number: State Insurance Paulette L Compensation 2016 [id number] Wade Tee Onset: 2015 Group Number: [id number] [address] [address] [place]ID: [place] [address] Workers Onset: Policy Number: Toby Fergusoni L Compensation 2009 [id number] Krystle Tee PayID: TOY [address] [place] [address] Problems Date Description Provider Status Onset: 11/26/2016 Pain in right arm Vasiliy Lemon MD Active Onset: 01/05/2018 Obstructive sleep apnea Marva Trejo DNP, RN, Active syndrome 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 days a week as needed Klor-Con M20 09/09/ Active Tablets ER 20Meq 90tabs 1 by mouth R00.2 Qutaybeh 2015 every day Gill Kulkarni M.D. Metoprolol 05/28/ Active Tablets 25mg 60tabs 1 by mouth Qutaybeh Tartrate 2014 once a day Gill Kulkarni M.D. Tylenol Extra / Active as Unknown Strength 0000 directed Ibuprofen / Active Capsules 200mg 2-3 tabs Unknown 0000 every 6 hours prn (rare use) Cymbalta / Active Caps DR 60mg 1 by mouth Unknown 0000 Part every day Topamax / Active Tablets 25mg once daily Unknown 0000 Diclofenac 12/22/ Hx Gel 1% 300gm Apply 1 Geri Sodium 2017 - gram to Duffy, 06/06/ affected M.D. 2017 area 4 times a day Pt states she has not started Amitriptyline 10/21/ Hx Tablets 10mg 60tabs take 1 R51 Dorian S. HCL 2015 - tablets Adam, 11/21/ every M.DGildardo 2017 night at bedtime for 2 weeks then take 2 tablets at bedtime Heart 05/14/ Hx Radha Medication 2014 - Mcginnis-Jim 05/28/ Jonatan rowan 2014 [place] 05/14/ Hx Tablets 5-325mg 40tabs 1-2 by Radha 2014 - mouth Mcginnis-You 09/30/ every Jonatan rowan 2014 hours as needed Robaxin-750 01/05/ Hx Tablets 750mg 40tabs 1-2 q8h Barney Croft 2009 - [place], 05/13/ Jonatan 2014 Lexapro / Hx Tablets 10mg 1 by mouth Unknown 0000 - every day 2014 Lexapro 0000/ Hx Tablets 10mg 1 by mouth Unknown 0000 - every day 2015 Nicotine Step 1 / Hx Unknown 0000 - 2015 Vital Signs Date Vital Result Comment 01/25/2018 Height 61 inches 5'1" Weight 243.00 lb Heart Rate 80 /min BP Systolic Sitting 102 mmHg BP Diastolic Sitting 78 mmHg Respiratory Rate 16 /min BMI (Body Mass Index) 45.9 kg/m2 01/05/2018 Height 61 inches 5'1" Weight 258.38 lb Heart Rate 64 /min BP Systolic Sitting 106 mmHg Lue large cuff BP Diastolic Sitting 86 mmHg Lue large cuff Respiratory Rate 16 /min O2 % BldC Oximetry 97 % BMI (Body Mass Index) 48.8 kg/m2 06/06/2017 Height 61 inches 5'1" Weight 245.00 [...] Test Date Test Result H/L Range Note Urinalysis 12/20/2013 Urine Color Yellow Urine Appearance Clear Urine Specific [place] 1.025 1.010-1.030 Urine Esterase Negative Negative Urine Nitrate Negative Negative Urine Urobilinogen Negative E.U./dL Negative Urine Protein Negative mg/dL Negative Urine pH 6.0 5-9 Urine Blood Negative Negative Urine Ketones Negative mg/dL Negative Urine Bilirubin Negative Negative Urine Glucose Negative mg/dL Negative CBC Auto Diff 12/20/2013 White Blood Count [...] 0-2 Nucleated Red Blood Cells % 0.1 Laboratory test finding 12/20/2013 Serum Positive Negative 1 Type & Screen 12/20/2013 Patient Blood Type A Negative Antibody Screen NEGATIVE Comp Metabolic Panel 12/20/2013 Sodium 136 mmol/L [...] Egfr Non- 99.5 >60 Egfr 128.0 >60 2 Laboratory test finding 12/20/2013 Beta HCG Quantitative 466.91 IU/mL High 0.0-5.0 3 C Reactive Protein 12.77 mg/L 4 1 This test detects intact HCG only and is indicated for the early detection of . 2 Because ethnic data is not always readily [...] 15-29 5 Kidney failure <15 (or dialysis) 3 <5.0 Negative 5.0 - 25.0 Indeterminate >25.0 Positive 4 Low risk: <1.0 mg/L Average risk: 1.0-3.0 mg/L High risk: >3.0 mg/L Acute inflammation: >10.0 mg/L Procedures Date CPT Code Description Status 12/14/2017 09836 Polysomnography Sleep Staging 4+ Parameters Completed 02/07/2017 30875 EKG Tracing & Interpretation Completed 02/02/2017 26405 Echocardiogram, Limited Study Completed 09/09/2016 10985 EKG Tracing & Interpretation Completed 08/13/2016 53216 Holter Monitor Review (24 hr)dr de oliveira & marla Completed only 08/12/2016 35029 ECG Monitor/Recording W/Visual Superimposition Scanning Completed 08/09/2016 34252 ECHO Transthoracic, Real-Time 2D With Doppler And Color Completed Flow 07/28/2016 83366 EKG Tracing & Interpretation Completed 09/17/2015 42006 Short Arm Cast Application Completed 08/12/2015 89902 Short Arm Cast Application Completed 07/31/2015 64690 Repair Of Collateral Ligament Metacarpophalangeal Or Completed Interphl JT 07/31/2015 27621 Repair Of Collateral Ligament Metacarpophalangeal Or Completed Interphl JT 07/31/2015 54628 Repair Of Collateral Ligament Metacarpophalangeal Or Completed Interphl JT 07/31/2015 80879 Repair Of Collateral Ligament Metacarpophalangeal Or Completed Interphl JT 06/23/2015 37492 Holter Monitor Review (24 hr)dr saundersamp; marla Completed only 06/23/2015 10293 ECG Monitor/Recording W/Visual Superimposition Scanning Completed 06/20/2015 92827 ECHO Stress Test Incl Perf Contiuous ekg Monitoring Completed W/Phys Superv 06/18/2015 33275 Holter Monitor Review (24 hr)dr alvino navarrete; marla Completed only 06/18/2015 02112 ECG Monitor/Recording W/Visual Superimposition Scanning Completed 06/04/2015 11323 ECHO Transthoracic, Real-Time 2D With Doppler And Color Completed Flow 05/28/2015 59205 EKG Tracing & Interpretation Completed 02/25/2015 15325 Gauntlet Cast Application Completed 02/19/2015 39244 Gauntlet Cast Application Completed Encounters Type Date Location Provider CPT E/M Dx Office Visit 01/05/2018 [facility] Marva Trejo, 29129 G47.33 10:00a Services Of [facility] STRINGER RN, CROSSBAR SWITCH ADJUSTER-BC Z68.42 Office Visit 11/22/2017 11:00a [facility] [place] [address] R06.83 Services Of [facility] E66.01 G47.10 G47.50 Office Visit 06/06/2017 11:45a [facility] Dorian Medina, 75716 G43.009 Services Of [facility] Cheung G43.009 M54.2 M54.2 M54.16 M54.5 Office Visit 02/10/2017 10:30a [facility] Geri Duffy, 68467 S63.641S Of Amrita Cheung S53.31xD Office Visit 02/07/2017 4:20p [facility] Dominiquetajosseline Kulkarni, 50533 R00.2 M.Saira R00.0 E66.9 R94.31 Office Visit 12/22/2016 1:00p [facility] Jannet Odonnell, 43815 M79.641 Of CGildardoMCathi RPA-C M79.641 M79.641 Office Visit 12/09/2016 10:45a [facility] [place] [address] M79.601 C.M.A. Office Visit 11/26/2016 9:45a [facility] [place] [address] M79.601 C.M.A. Office Visit 11/24/2016 10:32a [facility] [place] [address] M79.601 C.M.AGildardo R20.0 Office Visit 11/03/2016 1:30p [facility] Jannet Odonnell, 05802 S63.641S Of Amrita RPA-C S63.641S Office Visit 10/21/2016 10:30a [facility] Dorian Garland 50118 R51 Jonatan Mednia Office Visit 10/01/2016 3:19p [facility] Ariane Underwood, 41385 R50.81 Hospitalists MDoris R51 Office Visit 09/30/2016 3:07p [facility] Dorian Medina, 48331 R51 Jonatan Office Visit 09/30/2016 3:19p [facility], Chelita Mata, 99775 R51 Hospitalists COMPUTER ANALYST R50.81 Office Visit 09/29/2016 3:18p [facility], Purvi Solis, 69174 R51 Hospitalists Jonatan Office Visit 09/29/2016 3:05p [facility] Dorian Medina, 50642 R51 Jonatan Office Visit 09/28/2016 3:18p [facility], Hernan Henderson 18937 R51 Hospitalbar SMITH M.D. R50.81 Office Visit 09/09/2016 11:00a [facility] TEDDY Bedolla 95823 E66.9 R00.2 R06.02 Office Visit 07/28/2016 1:40p [facility] Dominiquetaybeh SGildardo Kulkarni, 69202 R06.02 M.DGildardo R42 R94.31 R00.2 F17.210 Office Visit 02/18/2016 11:00a [facility] TEDDY Bedolla 08111 R00.2 E66.9 R00.0 Office Visit 12/17/2015 10:45a [facility] Geri Duffy 10553 S53.31xD Of Amrita Cheung Office Visit 11/03/2015 10:00a [facility] Geri Duffy 46319 S53.31xD Of Amrita Cheung S53.31xD Office Visit 06/26/2015 4:40p [facility] Chayito SGildardo Kulkarni, 95528 785.1 Jonatan 427.61 278.00 Office Visit 05/28/2015 12:00p [facility] Of Chayito Garland 72284 785.0 Polina Kulkarni M.D. 780.4 785.1 Office Visit 05/27/2015 9:30a [facility] Radha Eisenberg, 72664 354.2 Of Amrita Cheung Office Visit 04/15/2015 9:30a [facility] Radha Eisenberg 02112 841.1 Of Amrita Cheung 841.1 Office Visit 03/02/2010 2:00p [facility] Of Barney Moon, 50615 846.0 Polina Cheung Office Visit 01/29/2010 9:30a [facility] Of Barney Moon, 07217 847.2 Polina Cheung Office Visit 01/15/2010 2:00p [facility] Of Barney Moon, 80800 847.2 Polina Cheung Office Visit 01/05/2010 3:15p [facility] Of Barney Moon, 40429 847.2 Polina Cheung Plan of Care Future Appointment(s):03/07/2018 10:30 am - Marva Trejo DNP, RN, CROSSBAR SWITCH ADJUSTER- at [facility]02/10/2018 2:20 pm - Chayito Kulkarni M.D. at [facility]01/25/2018 - Dorian Medina M.D.G43.009 Migraine w /o aura, not intractable, w/o status migrainosusFollow up:1 YEARR20.2 Paresthesia of skin
--- OUTSIDE RECORDS SUMMARY | 2018-02-01 12:22 | XMS REPORT ---
:1990 External Reference #:[id number] Author Organization [facility] Address [address] [address] Phone [phone] Care Team Providers Name Role Phone Patient's Choice Care Team Information Transcript Clerk Unavailable Alexandra Yarbrough DO Primary Care Physician Unavailable Payers Type Date Identification Numbers Payment Provider Subscriber Commercial Effective: Policy Number: Tyson Randi Kaci Tee 2015 [id number] Group Number: [id number] [address] PayID: [id number] [place] [address] Workers Effective: Policy Number: State Insurance Paulette L Compensation 2016 [id number] Wade Tee Onset: 2015 Group Number: [id number] [address] [address] Group Name: [phone] [place] [address] PayID: [facility] Commercial Effective: Policy Number: Traylor/Totalcare Paulette Tee 2014 [id number] Medicaid Expires: 2015 PayID: [id number] [address] [address] [place] [address] Workers Expires: Policy Number: State Insurance Paulette L Compensation 2016 [id number] Wade Tee Onset: 2015 Group Number: [id number] [address] [address] [place]ID: [place] [address] Workers Onset: Policy Number: Toby Caldwell L Compensation 2009 [id number] Krystle Tee PayID: TOY [address] [place] [address] Problems Date Description Provider Status Onset: 11/26/2016 [...] , max 2 M.D. days a week Klor-Con M20 09/09/ Active Tablets ER 20Meq 90tabs 1 by mouth R00.2 Qutaybeh 2015 every day S. Jonatan Kulkarni Metoprolol 05/28/ Active Tablets 25mg 60tabs 1 by mouth Chayito Tartrate 2014 twice a S. day Jonatan Kulkarni Tylenol Extra / Active as Unknown Strength [...] R51 Dorian S. HCL 2015 - tablets [place], 11/21/ every M.D. 2018 night at bedtime for 2 weeks then take 2 tablets at bedtime Heart 05/14/ Hx Radha Medication 2014 - Mcginnis-You 05/28/ Jonatan rowan 2014 [place] 07/15/ Hx Tablets 5-325mg 40tabs 1-2 by Radha [...] 2015 Vital Signs Date Vital Result Comment 01/05/2018 Height 61 inches 5'1" Weight 258.38 [...] Color Yellow Urine Appearance Clear Urine Specific [place] 1.025 1.010-1.030 Urine Esterase Negative Negative Urine [...] Procedures Date CPT Code Description Status 12/14/2017 57979 Polysomnography Sleep Staging 4+ Parameters Completed 02/07/2017 58361 EKG Tracing & Interpretation Completed 02/02/2017 79466 Echocardiogram, Limited Study Completed 09/09/2016 08472 EKG Tracing & Interpretation Completed 08/13/2016 29353 Holter Monitor Review (24 hr)dr de oliveira & marla Completed only 08/12/2016 76554 ECG Monitor/Recording W/Visual Superimposition Scanning Completed 08/09/2016 21997 ECHO Transthoracic, Real-Time 2D With Doppler And Color Completed Flow 07/28/2016 43848 EKG Tracing & Interpretation Completed 09/17/2015 50748 Short Arm Cast Application Completed 08/12/2015 82449 Short Arm Cast Application Completed 07/31/2015 64646 Repair Of Collateral Ligament Metacarpophalangeal Or Completed Interphl JT 07/31/2015 52482 Repair Of Collateral Ligament Metacarpophalangeal Or Completed Interphl JT 07/31/2015 22119 Repair Of Collateral Ligament Metacarpophalangeal Or Completed Interphl JT 07/31/2015 25863 Repair Of Collateral Ligament Metacarpophalangeal Or Completed Interphl JT 06/23/2015 73288 Holter Monitor Review (24 hr)dr de oliveira & marla Completed only 06/23/2015 97667 ECG Monitor/Recording W/Visual Superimposition Scanning Completed 06/20/2015 82260 ECHO Stress Test Incl Perf Contiuous ekg Monitoring Completed W/Phys Superv 06/18/2015 98290 Holter Monitor Review (24 hr)dr de oliveira & marla Completed only 06/18/2015 79166 ECG Monitor/Recording W/Visual Superimposition Scanning Completed 06/04/2015 28193 ECHO Transthoracic, Real-Time 2D With Doppler And Color Completed Flow 05/28/2015 55015 EKG Tracing & Interpretation Completed 02/25/2015 19427 Gauntlet Cast Application Completed 02/19/2015 17665 Gauntlet Cast Application Completed Encounters Type Date Location Provider CPT E/M Dx Office Visit 11/22/2017 [facility] [place] [address] R06.83 11:00a [facility] E66.01 G47.10 G47.50 Office Visit 06/06/2017 11:45a [facility] Dorian Medina, 61802 G43.009 Services Of Polina Cheung G43.009 M54.2 M54.2 M54.16 M54.5 Office Visit 02/10/2017 10:30a [facility] Geri Duffy 50355 S63.641S Of Amrita Cheung S53.31xD Office Visit 02/07/2017 4:20p [facility] Chayito Kulkarni, 38191 R00.2 Jonatan R00.0 E66.9 R94.31 Office Visit 12/22/2016 1:00p [facility] Jannet Alvaresting, 94507 M79.641 Of Amrita RPA-C M79.641 M79.641 Office Visit 12/09/2016 10:45a [facility] [place] [address] M79.601 C.M.A. Office Visit 11/26/2016 9:45a [facility] [place] [address] M79.601 C.M.A. Office Visit 11/24/2016 10:32a [facility] [place] [address] M79.601 C.M.A. R20.0 Office Visit 11/03/2016 1:30p [facility] Jannet Odonnell, 52612 S63.641S Of Amrita RPA-C S63.641S Office Visit 10/21/2016 10:30a [facility] Dorian Garland 36014 R5Mario Medina M.D. Office Visit 10/01/2016 3:19p [facility], Ariane Underwood, 90603 R50.81 Hospitalists Jonatan R51 Office Visit 09/30/2016 3:07p [facility] Dorian Medina, 70470 R51 Jonatan Office Visit 09/30/2016 3:19p [facility], Chelita Mata, 56184 R51 Hospitalists ACCOUNT MANAGER EDUCATION R50.81 Office Visit 09/29/2016 3:18p [facility], Purvi Solis, 07235 R51 Hospitalists Jonatan Office Visit 09/29/2016 3:05p [facility] Dorian Medina, 39621 R51 Jonatan Office Visit 09/28/2016 3:18p [facility], Hernan Henderson 23116 R51 Hospitalbar SMITH M.D. R50.81 Office Visit 09/09/2016 11:00a [facility] TEDDY Bedolla 02337 E66.9 R00.2 R06.02 Office Visit 07/28/2016 1:40p [facility] Chayito Kulkarni, 55813 R06.02 MDoris R42 R94.31 R00.2 F17.210 Office Visit 02/18/2016 11:00a [facility] TEDDY Bedolla 45712 R00.2 E66.9 R00.0 Office Visit 12/17/2015 10:45a [facility] Geri Duffy 27219 S53.31xD Of Amrita Cheung Office Visit 11/03/2015 10:00a [facility] Geri Duffy 71351 S53.31xD Of Amrita Cheung S53.31xD Office Visit 06/26/2015 4:40p [facility] 65541 785.1 M.DGildardo 427.61 278.00 Office Visit 05/28/2015 12:00p [facility] Of Chayito Garland 37462 785.0 Polina Kulkarni M.D. 780.4 785.1 Office Visit 05/27/2015 9:30a [facility] Radha Eisenberg, 20730 354.2 Of Amrita Cheung Office Visit 04/15/2015 9:30a [facility] Radha Eisenbegr 96991 841.1 Of Amrita Cheung 841.1 Office Visit 03/02/2010 2:00p [facility] Of Barney Moon, 30618 846.0 Polina Cheung Office Visit 01/29/2010 9:30a [facility] Of Barney Moon, 90363 847.2 Polina Cheung Office Visit 01/15/2010 2:00p [facility] Of Barney Moon, 21852 847.2 Polina Cheung Office Visit 01/05/2010 3:15p [facility] Of Barney Moon, 32843 847.2 Polina Cheung Plan of Care Future Appointment(s):03/07/2018 10:30 am - Marva Trejo DNP, RN, BITUMINOUS DISTRIBUTOR OPERATOR-BC at [facility]02/10/2018 2:20 pm - Chayito Kulkarni M.D. at [facility]/28/2018 9:45 am - Dorian Medina M.D. at [facility]01/05/2018 - Marva Trejo DNP, RN, [facility]- BCG47.33 Obstructive sleep apnea (adult) (pediatric)Comments:12/14/17 NPSG AHI 6.6/hour, supine 9.8/hour, tRDI 9.7/hour, neo oxygen 88% wt 260#Follow up:6 weeksRecommendations:Sleep apnea to start PAP at 5-15 cm Review of sleep study in detail. Risks of untreated sleep apnea including cardiovascular events: rhythm irregularities, heart attack, stroke; gastro esophageal reflux disease (GERD); diabetes; anxiety, depression; high blood pressure; accidents (machinery and automobile) Recommendation for PAP other treatment modalities NON-PAPincluding oral appliance/mandibular advancement device, positional strategies , weight loss, and surgery discussed. Referral for PAP device to be sent to [facility] phone: [phone] Equipment appointment will take about 45 minutes, the DME provider will call you within 5 days to set you up for the device. If you do not hear from them call the Sleep Center. The mask will have a 30-day guarantee, if you have mask problems call the DME provider to have a fitting for a different mask. If you have problems with the air pressure call the sleep center and speak to a nurse. If you have any sleepiness while driving you MUST avoid operating a vehicle or machinery. If you have any further questions , please call the Sleep Disorder Center at [phone].Z68.42 Body mass index ( BMI) 45.0-49.9, adultRecommendations:Continue with [facility] for weight loss
--- NOTE | 2018-02-01 12:30 | RAD ---
INDICATION: Knee pain COMPARISON: April 16, 2016 TECHNIQUE: AP and lateral views were obtained. FINDINGS: The bony structures, joint spaces, and soft tissues are normal for age. IMPRESSION: NEGATIVE EXAMINATION.
--- NOTE | 2018-02-03 07:51 | ED ---
Nabeel Saavedra Angela, scribed for Avinash Ontiveros MD on 02/01/18 at 1158 . Lower Extremity - HPI Summary HPI Summary: This pt is a 27 y/o female presenting [facility] c/o left knee pain x2 weeks. Pt reports she was kneeling down on her left knee while given her kid a bath when she felt "like knee cap slipped." Pt states she has left knee pain and feels like her her knee wants to give out. She reports her left knee has been less stable. Pt is able to bear weight. She notes her right knee is over compensating for her left knee and now had aggravated her right knee tendinitis. PMHx: tachycardia. - History of Current Complaint Stated Complaint: LT KNEE PAIN Hx Obtained From: Patient Hx Last Menstrual Period: pt states "sometime in Jul" Mechanism Of Injury: Other - kneeling on left knee Onset of Pain: Days Onset/Duration: Weeks - 2 Severity Currently: Mild Pain Intensity: 3 Pain Scale Used: 0-10 Numeric Timing: Lasting Weeks - 2 Location: Is Discrete @ - left knee Associated Signs And Symptoms: Positive: Knee Pain - left Aggravating Factor(s): Ambulation Alleviating Factor(s): Nothing Able to Bear Weight: Yes - Allergies/Home Medications Allergies/Adverse Reactions: Allergies Allergy/AdvReac Type Severity Reaction Status Date / Time clindamycin Allergy Rash Verified 02/01/18 11:59 prochlorperazine Allergy See Comment Verified 02/01/18 11:59 [From Compazine] Sulfa (Sulfonamide Allergy Anaphylatic Verified 02/01/18 11:59 Antibiotics) Shock Home Medications: Home Medications SUMAtriptan TAB* [Imitrex TAB*] 100 mg PO BID PRN 02/01/18 [History Confirmed ] Topiramate TAB(*) [Topamax 25 MG tab] 25 mg PO DAILY 02/01/18 [History Confirmed 02/01/18] PMH/Surg Hx/FS Hx/Imm Hx Endocrine/Hematology History: Denies: Hx Anticoagulant Therapy, Hx Diabetes, Hx Thyroid Disease Cardiovascular History: Reports: Hx Hypertension, Other Cardiovascular Problems/ Disorders - heart murmur Denies: Hx Congestive Heart Failure, Hx Pacemaker/ICD Respiratory History: Reports: Hx Asthma Denies: Hx Chronic Obstructive Pulmonary Disease (COPD), Hx Lung Cancer, Hx Pneumonia, Hx Pulmonary Embolism GI History: Denies: Hx Irritable Bowel, Hx Ulcer History: Reports: Hx Kidney Stones - LAST STONE 1 YR AGO, Other Problems/ Disorders - kidney stones Denies: Hx Renal Disease Musculoskeletal History: Reports: Hx Orthopedic Injury - right thumb ligament tear and reconstruction, Other Musculoskeletal History - RIGHT THUMB STRAIN/ SPRAIN Sensory History: Reports: Hx Contacts or Glasses - GLASSES Denies: Hx Hearing Aid Opthamlomology History: Reports: Hx Contacts or Glasses - GLASSES Neurological History: Reports: Hx Migraine, Hx Seizures - pseudo seizures and "seizures when I was younger--18." Denies: Hx Dementia, Hx Transient Ischemic Attacks (TIA) Psychiatric History: Reports: Hx Anxiety, Hx Eating Disorder, Hx Depression, Hx Bipolar Disorder, Hx of Violent Episodes Against Others Denies: Hx Panic Disorder, Hx Schizophrenia - Surgical History Surgery Procedure, Year, and Place: APPENDECTOMY, 08/2014, Right ULNAR COLLATERAL LIGAMENT Sx 07/2015 Hx Anesthesia Reactions: Yes - TOOK A LONG TIME TO WAKE UP AFTER APPY - Immunization History Date of Tetanus Vaccine: utd Date of Influenza Vaccine: unk Infectious Disease History: No Infectious Disease History: Reports: Hx Clostridium Difficile - hx c-diff - not active, Hx of Known/Suspected MRSA - mutiple places 2014, following tatoo on L shoulder Denies: Hx Hepatitis, Hx Human Immunodeficiency Virus (HIV), Hx Shingles, Hx Tuberculosis, Hx Known/Suspected VRE, Hx Known/Suspected VRSA, History Other Infectious Disease, Traveled Outside the [place] in Last 30 Days - Family History Known Family History: Positive: Cardiac Disease, Hypertension, Other - Migraines - Social History Alcohol Use: None Hx Substance Use: Yes Substance Use Type: Reports: None Substance Use Comment - Amount & Last Used: PT denies use Hx Tobacco Use: Yes Smoking Status (MU): Heavy Every Day Tobacco Smoker Type: Cigarettes Amount Used/How Often: 1ppd Length of Time of Smoking/Using Tobacco: at age 13 Have You Smoked in the Last Year: Yes Review of Systems Negative: Fever ENT: Negative Cardiovascular: Negative Respiratory: Negative Gastrointestinal: Negative Musculoskeletal: Other - left knee pain Neurological: Negative All Other Systems Reviewed And Are Negative: Yes Physical Exam - Summary Physical Exam Summary: VITAL SIGNS: Reviewed. GENERAL: Patient is a well-developed and nourished female who is lying comfortable in the stretcher. Patient is not in any acute respiratory distress. HEAD AND FACE: No signs of trauma. No ecchymosis, hematomas or skull depressions. No sinus tenderness. EYES: PERRLA, EOMI x 2, No injected conjunctiva, no nystagmus. EARS: Hearing grossly intact. Ear canals and tympanic membranes are within normal limits. MOUTH: Oropharynx within normal limits. NECK: Supple, trachea is midline, no adenopathy, no JVD, no carotid bruit, no c- spine tenderness, neck with full ROM. CHEST: Symmetric, no tenderness at palpation LUNGS: Clear to auscultation bilaterally. No wheezing or crackles. CVS: Regular rate and rhythm, S1 and S2 present, no murmurs or gallops appreciated. ABDOMEN: Soft, non-tender. No signs of distention. No rebound no guarding, and no masses palpated. Bowel sounds are normal. EXTREMITIES: FROM in all major joints, no edema, no cyanosis or clubbing. LLE: no ecchymosis, no deformity, no swelling on left knee. Pt has decreased ROM on left knee secondary to pain. NEURO: Alert and oriented x 3. No acute neurological deficits. Speech is normal and follows commands. SKIN: Dry and warm Triage Information Reviewed: Yes Vital Signs On Initial Exam: Initial Vitals Temp Pulse Resp BP Pulse Ox 96.5 F 83 17 114/65 99 02/01/18 11:48 02/01/18 11:48 02/01/18 11:48 02/01/18 11:48 02/01/18 11:48 Vital Signs Reviewed: Yes Diagnostics - Vital Signs Vital Signs Temp Pulse Resp BP Pulse Ox 02/01/18 11:48 96.5 F 83 17 114/65 99 - Laboratory Lab Statement: Any lab studies that have been ordered have been reviewed, and results considered in the medical decision making process. - Radiology Left knee XR Xray Interpretation: No Acute Changes - IMPRESSION: negative examination. Dr. Ontiveros has reviewed this radiology report. Radiology Interpretation Completed By: Radiologist Re-Evaluation - Re-Evaluation First Eval Re-Evaluation Time: 12:40 Comment: I reviewed the XR results with the pt. She will be discharged home. Lower Extremity Course/Dx - Course Assessment/Plan: This pt is a 27 y/o female presenting to [facility] c/o left knee pain x2 weeks. Pt reports she was kneeling down on her left knee while given her kid a bath when she felt "like knee cap slipped." Pt states she has left knee pain and feels like her her knee wants to give out. She reports her left knee has been less stable. Pt is able to bear weight. She notes her right knee is over compensating for her left knee and now had aggravated her right knee tendinitis. PMHx: tachycardia. Left knee XR is negative for a fracture or dislocation. In the ED course the pt was given a toradol injection and her symptoms improved. Therefore, she will be discharged to home with follow up from her PCP. I discussed all the findings and test results with the patient. All questions were answered to patient satisfaction. There were no further complaints or concerns. Pt was given a prescription for Tramadol. She is instructed to return to the ED for any worsening or new symptoms. Pt is hemodynamically stable, alert and oriented x3. She is ambulating out of the emergency department without any difficulty. - Diagnoses Provider Diagnoses: Left knee pain Discharge - Sign-Out/Discharge Documenting (check all that apply): Discharge - discharge to home - Discharge Plan Condition: Stable Disposition: HOME Prescriptions: traMADol TAB* [Ultram*] 50 mg PO Q12H PRN #12 tab MDD 2 PRN Reason: Pain Patient Education Materials: Knee Pain (ED) Referrals: Alexandra Yarbrough DO [Primary Care Provider] - 3 Days Additional Instructions: Please follow up with your primary care provider. RETURN TO THE ED FOR ANY NEW OR WORSENING SYMPTOMS. The documentation as recorded by the Nabeel merida Angela accurately reflects the service I personally performed and the decisions made by me, Avinash Ontiveros MD.
== END 2018-02-01 12:48 | disposition home or self-care (01) ==
LOC: ED 11:37
DX: M25.562 Pain in left knee (principal); F17.210 Nicotine dependence, cigarettes, uncomplicated
CPT/HCPCS: 96372; 99282; J1885

== ENCOUNTER 2018-02-19 14:18 | Emergency (ER) | payer OTHER ==
[2018-02-19 14:24] VITALS: BP 114/76
--- OUTSIDE RECORDS SUMMARY | 2018-02-19 14:24 | XMS REPORT ---
:1990 External Reference #:[id number] Author Organization [facility] [employer] Address [address] [address] Phone [phone] Care Team Providers Name Role Phone Alexandra Yarbrough DO Primary Care Physician Unavailable Payers Type Date Identification Numbers Payment Provider Subscriber Commercial Effective: Policy Number: Tyson Tee 2015 [id number] Group Number: [id number] [address] PayID: [id number] [place] [address] Workers Effective: Policy Number: State Insurance Paulette L Compensation 2016 [id number] Wade Randal Onset: 2015 Group Number: [id number] [address] [address] Group Name: [id number] [place] [address] [facility] Commercial Effective: Policy Number: [employer] Paulette Tee 2014 [id number] Medicaid Expires: 2015 PayID: [id number] [address] [address] [place] [address] Workers Expires: Policy Number: State Insurance Paulette L Compensation 2016 [id number] Wade Randal Onset: 2015 Group Number: [id number] [address] [address] [place]ID: [place] [address] Workers Onset: Policy Number: Toby Fergusoni L Compensation 2009 [id number] Krystle Tee PayID: [id number] [address] [place] [address] Problems Date Description Provider Status Onset: 11/26/2016 Pain in right arm Vasiliy Lemon MD Active Onset: 01/05/2018 Obstructive sleep apnea Marva Trejo DNP, RN, Active syndrome 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 Tylenol Extra / Active as Unknown Strength 0000 directed Ibuprofen / Active Capsules 200mg 2-3 tabs Unknown 0000 every 6 hours prn (rare use) Cymbalta / Active Caps DR 60mg 1 by mouth Unknown 0000 Part every day Topamax / Active Tablets 25mg once daily Unknown 0000 Multivitamin / Active Unknown 0000 Diclofenac 12/22/ Hx Gel 1% 300gm Apply 1 Geri Sodium 2017 - gram to Duffy, 06/06/ affected M.D. 2017 area 4 times a day Pt states she has not started Amitriptyline 10/21/ Hx Tablets 10mg 60tabs take 1 R51 Dorian S. HCL 2016 - tablets Davis, 11/21/ every M.D. 2017 night at bedtime for 2 weeks then take 2 tablets at bedtime Heart 05/14/ Hx Radha Medication 2014 - Mcginnis-You 05/28/ Jonatan rowan 2014 [place] 05/14/ Hx Tablets 5-325mg 40tabs 1-2 by Radha 2014 - mouth Mcginnis-You 09/30/ every Jonatan rowan 2014 hours as needed Robaxin-750 01/05/ Hx Tablets 750mg 40tabs 1-2 q8h Barney Croft 2009 - Zupruk, 05/13/ Jonatan 2014 Lexapro / Hx Tablets 10mg 1 by mouth Unknown 0000 - every day 2014 Lexapro 00/00/ Hx Tablets 10mg 1 by mouth Unknown 0000 - every day 2015 Nicotine Step 1 / Hx Unknown 0000 - 2015 Vital Signs Date Vital Result Comment 02/06/2018 Height 61 inches 5'1" Weight 245.00 lb Heart Rate 84 /min BP Systolic 110 mmHg BP Diastolic 60 mmHg BMI (Body Mass Index) 46.3 kg/m2 01/25/2018 Height 61 inches 5'1" Weight 243.00 [...] Test Date Test Result H/L Range Note Comp Metabolic Panel 12/20/2013 Sodium 136 mmol/L [...] Egfr Non- 99.5 >60 Egfr 128.0 >60 1 Type & Screen 12/20/2013 Patient Blood Type A Negative Antibody Screen NEGATIVE Laboratory test finding 12/20/2013 Serum Positive Negative 2 Laboratory test finding 12/20/2013 Beta HCG Quantitative 466.91 IU/mL High 0.0-5.0 3 C Reactive Protein 12.77 mg/L 4 CBC Auto Diff 12/20/2013 White Blood [...] Color Yellow Urine Appearance Clear Urine Specific [place] 1.025 1.010-1.030 Urine Esterase Negative Negative Urine Nitrate Negative Negative Urine Urobilinogen Negative E.U./dL Negative Urine Protein Negative mg/dL Negative Urine pH 6.0 5-9 Urine Blood Negative Negative Urine Ketones Negative mg/dL Negative Urine Bilirubin Negative Negative Urine Glucose Negative mg/dL Negative 1 Because ethnic data is not always readily [...] 15-29 5 Kidney failure <15 (or dialysis) 2 This test detects intact HCG only and is indicated for the early detection of . 3 <5.0 Negative 5.0 - 25.0 Indeterminate >25.0 Positive 4 Low risk: <1.0 mg/L Average risk: 1.0-3.0 mg/L High risk: >3.0 mg/L Acute inflammation: >10.0 mg/L Procedures Date CPT Code Description Status 12/14/2017 72149 Polysomnography Sleep Staging 4+ Parameters Completed 02/07/2017 89203 EKG Tracing & Interpretation Completed 02/02/2017 22920 Echocardiogram, Limited Study Completed 09/09/2016 43905 EKG Tracing & Interpretation Completed 08/13/2016 38408 Holter Monitor Review (24 hr)dr de oliveira & marla Completed only 08/12/2016 36004 ECG Monitor/Recording W/Visual Superimposition Scanning Completed 08/09/2016 44899 ECHO Transthoracic, Real-Time 2D With Doppler And Color Completed Flow 07/28/2016 14735 EKG Tracing & Interpretation Completed 09/17/2015 97236 Short Arm Cast Application Completed 08/12/2015 75112 Short Arm Cast Application Completed 07/31/2015 95145 Repair Of Collateral Ligament Metacarpophalangeal Or Completed Interphl JT 07/31/2015 03686 Repair Of Collateral Ligament Metacarpophalangeal Or Completed Interphl JT 07/31/2015 67625 Repair Of Collateral Ligament Metacarpophalangeal Or Completed Interphl JT 07/31/2015 20897 Repair Of Collateral Ligament Metacarpophalangeal Or Completed Interphl JT 06/23/2015 22161 Holter Monitor Review (24 hr)dr de oliveira & marla Completed only 06/23/2015 25042 ECG Monitor/Recording W/Visual Superimposition Scanning Completed 06/20/2015 78027 ECHO Stress Test Incl Perf Contiuous ekg Monitoring Completed W/Phys Superv 06/18/2015 15775 Holter Monitor Review (24 hr)dr de oliveira & marla Completed only 06/18/2015 73296 ECG Monitor/Recording W/Visual Superimposition Scanning Completed 06/04/2015 47479 ECHO Transthoracic, Real-Time 2D With Doppler And Color Completed Flow 05/28/2015 20378 EKG Tracing & Interpretation Completed 02/25/2015 61355 Gauntlet Cast Application Completed 02/19/2015 93869 Gauntlet Cast Application Completed Encounters Type Date Location Provider CPT E/M Dx Office Visit 02/06/2018 [facility] Abena Luong M.D. 82864 M25.562 1:00p Of [facility] Office Visit 01/25/2018 [facility] Dorian Medina, 77513 G43.009 9:45a Services Of Polina Cheung R20.2 Office Visit 01/05/2018 10:00a [facility] Marva Maya, [address] [facility] SIOMARA RN, MEDICAL GENETICIST- Z68.42 Office Visit 11/22/2017 11:00a [facility] [place] [address] [facility] E66.01 G47.10 G47.50 Office Visit 06/06/2017 11:45a [facility] Dorian Medina, 81860 G43.009 Services Of Polina Cheung G43.009 M54.2 M54.2 M54.16 M54.5 Office Visit 02/10/2017 10:30a [facility] Geri Duffy, 24939 S63.641S Of Amrita Cheung S53.31xD Office Visit 02/07/2017 4:20p [facility] Dominiquetaybjosseline Kulkarni, 90242 R00.2 [place].Saira R00.0 E66.9 R94.31 Office Visit 12/22/2016 1:00p [facility] Jannet Odonnell, 86242 M79.641 Of C.MCathi RPA-C M79.641 M79.641 Office Visit 12/09/2016 10:45a [facility] [place] [address] M79.601 C[facility]. Office Visit 11/26/2016 9:45a [facility] [place] [address] M79.601 C.M[facility]A. Office Visit 11/24/2016 10:32a [facility] [place] [address] M79.601 C.M.A. R20.0 Office Visit 11/03/2016 1:30p [facility] Jannet Odonnell, 05684 S63.641S Of CGildardoMCathi RPA-C S63.641S Office Visit 10/21/2016 10:30a [facility] Dorian Garland 36124 R51 Jonatan Medina Office Visit 10/01/2016 3:19p [facility] Ariane Kj, 77162 R50.81 Hospitalists Jonatan R51 Office Visit 09/30/2016 3:19p [facility] Chelitamadelyn Mata, NARINDER 89838 R51 Hospitalists R50.81 Office Visit 09/30/2016 3:07p [facility] Dorian Medina, 63559 R51 M.DGildardo Office Visit 09/29/2016 3:05p [facility] Dorian Medina, 34249 R51 M.DGildardo Office Visit 09/29/2016 3:18p [facility] Purvi Solis, 66898 R51 Hospitalists Jonatan Office Visit 09/28/2016 3:18p [facility], Hernan Henderson 77958 R51 Hospitalbar SMITH M.D. R50.81 Office Visit 09/09/2016 11:00a [facility] TEDDY Bedolla 85784 E66.9 R00.2 R06.02 Office Visit 07/28/2016 1:40p [facility] Chayito Kulkarni, 02871 R06.02 Jonatan R42 R94.31 R00.2 F17.210 Office Visit 02/18/2016 11:00a [facility] TEDDY Bedolla 65442 R00.2 E66.9 R00.0 Office Visit 12/17/2015 10:45a [facility] Geri Duffy 78370 S53.31xD Of Amrita Cheung Office Visit 11/03/2015 10:00a [facility] Geri Duffy 34620 S53.31xD Of Amrita Cheung S53.31xD Office Visit 06/26/2015 4:40p [facility] Chayito Kulkarni, 50451 785.1 Jonatan 427.61 278.00 Office Visit 05/28/2015 12:00p [facility] Of Chayito Garland 89638 785.0 Polina Kulkarni M.D. 780.4 785.1 Office Visit 05/27/2015 9:30a [facility] Radha McginnisNavi, 27645 354.2 Of Amrita Cheung Office Visit 04/15/2015 9:30a [facility] Radha Eisenberg, 80727 841.1 Of Amrita Cheung 841.1 Office Visit 03/02/2010 2:00p [facility] Of Barney Moon, 63101 846.0 Polina M.Saira Office Visit 01/29/2010 9:30a [facility] Barney Moon, 87304 847.2 Polina M.Saira Office Visit 01/15/2010 2:00p [facility] Barney Moon, 05971 847.2 Polina M.Saira Office Visit 01/05/2010 3:15p [facility] Barney Moon, 65738 847.2 Polina Cheung Plan of Care Future Appointment(s):03/07/2018 10:30 am - Marva Trejo DNP, RN, MEDICAL GENETICIST-BC at [facility]02/06/2018 - Abena Luong M.D.M25.562 Pain in left kneeNew Xrays:MRI Knee Left W/OFollow up:Follow up: after MRI
--- NOTE | 2018-02-19 14:27 | UC ---
Respiratory Complaint HPI - HPI Summary HPI Summary: Pt presents with dry cough and SOB since last night. She tells me that she has a hx of asthma. Yesterday developed a cough and this morning had an "asthma attack", for which she used her albuterol inhaler with good relief, but still feels short of breath. No recent travel, OBC, or hx of DVT/PE. Still smoking daily. Denies fever, chills, chest pain, abdominal pain, n/v/d/c. - History of Current Complaint Chief Complaint: UCRespiratory Stated Complaint: ASTHMA Time Seen by Provider: 02/19/18 14:24 Hx Obtained From: Patient Hx Last Menstrual Period: pt states "sometime in Jul" Onset/Duration: Sudden Onset Timing: Constant Character: Cough: Nonproductive Alleviating Factors: Bronchodilator - Allergies/Home Medications Allergies/Adverse Reactions: Allergies Allergy/AdvReac Type Severity Reaction Status Date / Time clindamycin Allergy Rash Verified 02/19/18 14:24 prochlorperazine Allergy See Comment Verified 02/19/18 14:24 [From Compazine] Sulfa (Sulfonamide Allergy Anaphylatic Verified 02/19/18 14:24 Antibiotics) Shock PMH/Surg Hx/FS Hx/Imm Hx Cardiovascular History: Hypertension Respiratory History: Asthma Neurological History: Migraine Other History Of: Negative For: HIV, Hepatitis B, Hepatitis C, Anticoagulant Therapy - Surgical History Surgical History: Yes Surgery Procedure, Year, and Place: APPENDECTOMY, 08/2014, Right ULNAR COLLATERAL LIGAMENT Sx 07/2015 - Family History Known Family History: Positive: Cardiac Disease, Hypertension, Other - Migraines - Social History Lives: With Family Alcohol Use: None Substance Use Type: None Substance Use Comment - Amount & Last Used: PT denies use Smoking Status (MU): Heavy Every Day Tobacco Smoker Type: Cigarettes Amount Used/How Often: 1ppd Length of Time of Smoking/Using Tobacco: at age 13 Have You Smoked in the Last Year: Yes When Did the Patient Quit Smoking/Using Tobacco: Quitting currently Household Exposure Type: Cigarettes - Immunization History Most Recent Influenza Vaccination: 07/2015 Most Recent Tetanus Shot: 05/2014 Most Recent Pneumonia Vaccination: none Review of Systems Constitutional: Negative Skin: Negative Eyes: Negative ENT: Negative Respiratory: Shortness Of Breath, Cough Cardiovascular: Negative Gastrointestinal: Negative Neurovascular: Negative Musculoskeletal: Negative Neurological: Negative Psychological: Negative All Other Systems Reviewed And Are Negative: Yes Physical Exam - Summary Physical Exam Summary: GENERAL: NAD. WDWN. No pain distress. SKIN: No rashes, sores, ulcers, masses, lesions. HEENT: Head: AT/NC Eyes: Conjunctiva clear without inflammation or discharge. Ears: Hearing grossly normal. TMs intact, no bulging, erythema, or edema. Nose: Nasal mucosa pink and moist. NTTP maxillary and frontal sinus. Throat: Posterior oropharynx without exudates, erythema, or tonsillar enlargement. Uvula midline. NECK: Supple. Nontender. No lymphadenopathy. CHEST: Moderate wheezing throughout. Mild increased work of breathing. No r/r. No accessory muscle use. CV: RRR. Without m/r/g. Pulses intact. Brisk cap refill. NEURO: Alert. CN II-XII grossly intact. PSYCH: Age appropriate behavior. Triage Information Reviewed: Yes Re-Evaluation - Re-Evaluation First Eval Re-Evaluation Time: 14:58 Change: Improved Comment: Improved breathing after Duoneb. Lungs with less wheezing Respiratory Course/Dx - Course Course Of Treatment: CXR: IMPRESSION: No active cardiopulmonary disease is noted. Duoneb and 4mg dexamethasone given - improved s/p. Breathing more comfortably and with less effort. Wells' Criteria low risk for PE. Suspect asthma exacerbation. Pt's current albuterol inhaler a year and a half ago - will send her home with one today and rx for prednisone for 5 days. - Differential Dx/Diagnosis Provider Diagnoses: Asthma exacerbation Discharge - Sign-Out/Discharge Documenting (check all that apply): Discharge - Discharge Plan Condition: Stable Disposition: HOME Prescriptions: predniSONE TAB* [Deltasone TAB*] 50 mg PO DAILY #5 tab Patient Education Materials: Asthma (ED) Referrals: Alexandra Yarbrough DO [Primary Care Provider] - Additional Instructions: If you develop a fever, shortness of breath, chest pain, new or worsening symptoms - please call your PCP or go to the ED. - Billing Disposition and Condition Condition: STABLE Disposition: HOME
[2018-02-19] MEDS ORDERED: Albuterol/Ipratropium NEB.SOL* Albuterol 2.5 MG/Ipratropium 0.5 MG 3 ML INH ONE (14:29)
[2018-02-19] MEDS ORDERED: Dexamethasone TAB* 4 MG PO ONE (14:36)
--- NOTE | 2018-02-19 15:35 | RAD ---
Indication: Cough. 2 views of the chest including dual energy PA views demonstrate no mediastinal shift. Heart is normal in size and configuration. Lung rush are clear with no evidence of pleural fluid or pneumonia. Compared to previous exam of December 11, 2017 no significant change is noted. IMPRESSION: No active cardiopulmonary disease is noted.
[2018-02-19] MEDS ORDERED: Albuterol HFA INHALER* 8 gm MDI INH ONE (15:38)
== END 2018-02-19 15:45 | disposition home or self-care (01) ==
LOC: UCEAST 14:18
DX: J45.901 Unspecified asthma with (acute) exacerbation (principal); F17.210 Nicotine dependence, cigarettes, uncomplicated; Z88.3 Allergy status to other anti-infective agents; Z88.2 Allergy status to sulfonamides
CPT/HCPCS: 71046; 99213; A9270-GY; G0463; J8540

== ENCOUNTER 2018-04-03 05:48 | Day surgery (SDC) | payer OTHER ==
[2018-04-03] MEDS ORDERED: Buffered Lidocaine 0.9% SYRIN* 5 ML/SYR SYRINGE INTRADERM ONE (06:00)
[2018-04-03] MEDS ORDERED: Lidocaine 4% TOPICAL* 50 ML TOP.SOLN ONE (07:10)
[2018-04-03] MEDS ORDERED: KETAMINE HCL* 50 MG/ML 10 ML VIAL ONE (07:10)
[2018-04-03] MEDS ORDERED: fentaNYL* 50 MCG/ML 2 ML VIAL (100 MCG VIAL) ONE (07:10)
[2018-04-03] MEDS ORDERED: Lidocaine 2% PF * 5 ML VIAL ONE (07:10)
[2018-04-03] MEDS ORDERED: Propofol* 10 MG/ML 20 ML BTL IV PUSH ONE (07:10)
[2018-04-03] MEDS ORDERED: Dexamethasone IV* 4 MG/ML 1 ML (4 MG) ONE (07:10)
[2018-04-03] MEDS ORDERED: Midazolam* 1 MG/ML 10 ML VIAL (10 MG) ONE (07:11)
[2018-04-03] MEDS ORDERED: Lidocaine 2% VISCOUS* 15 ML UDC ONE (07:17)
[2018-04-03] MEDS ORDERED: Ondansetron ODT TAB* 4 MG PO PRN (07:31)
[2018-04-03] MEDS ORDERED: Naloxone* 0.4 MG/ML 1 ML VIAL IV PRN (07:31)
[2018-04-03] MEDS ORDERED: fentaNYL* 50 MCG/ML 2 ML VIAL (100 MCG VIAL) IV PRN (07:31)
[2018-04-03] MEDS ORDERED: Levalbuterol 0.63MG/3ML NEB* UNIT OF USE INH PRN (07:31)
--- NOTE | 2018-04-03 08:05 | BRIEFOPN ---
Brief Operative Note - Surgery Procedures: Procedures OPERATIVE REPORT PRE-OP: Gastroesophageal reflux disease; morbid obesity POST-OP: Same, normal EGD PROCEDURE: Esophagogastroduodenoscopy with ARIAS bx from gastric antrum SURGEON: MD Randall ANESTHESIA: MAC with topical; Dr. Kelsey ASST: none IVF:min EBL:min SPECIMEN: ARIAS bx gastric antrum DRAIN: none WOUND CLASS: N/A COMPLICATIONS: none TO PACU
[2018-04-03 08:52] VITALS: BP 91/59
--- NOTE | 2018-04-04 10:51 | OP ---
CC: [facility], Attn: Dr. Joey Martinez * DATE OF OPERATION: 04/03/18 - [facility] DATE OF : 88 SURGEON: Kristian Pereira MD ANESTHESIOLOGIST: Michael Kelsey MD ANESTHESIA: Topical pharyngeal spray as well as intravenous sedation. PRE-OP DIAGNOSES: 1. Gastroesophageal reflux disease. 2. Morbid obesity. POST-OP DIAGNOSES: 1. Gastroesophageal reflux disease. 2. Normal esophagogastroduodenoscopy. OPERATIVE PROCEDURE: Esophagogastroduodenoscopy with gastric antral ARIAS biopsy. INDICATIONS: Ms. Paulette Tee is a 27-year-old woman, who is morbidly obese, and is undergoing evaluation for potential bariatric surgery. She has had a history of reflux disease and an upper endoscopy has been requested. She underwent an endoscopy several years ago at another institution, and was told that she had findings of "irritation." SPECIMENS: Single antral biopsy for H. pylori ARIAS biopsy. ESTIMATED BLOOD LOSS: Trace. COMPLICATIONS: None. FINDINGS: The esophagus appeared to be unremarkable. The squamocolumnar junction was normal without evidence of reflux esophagitis, Fernandez's esophagus , webs, strictures, or rings. There was no evidence of hiatal hernia. The stomach and duodenum were unremarkable. DESCRIPTION OF PROCEDURE: Written and informed consent was obtained, and the patient was taken to the operating room and was placed in the supine position. The throat was sprayed with 4% lidocaine spray by Dr. Kelsey. Time-out verification was completed. Intravenous sedation was administered by anesthesia. Under direct vision, the upper endoscope was then inserted into the posterior pharynx and the esophagus was intubated under direct vision. The scope was then advanced down to the esophagus and the proximal, mid, and distal esophagus appeared to be normal. The squamocolumnar junction was identified and this was normal without evidence of Fernandez's esophagus, esophagitis, webs, strictures, rings or other abnormalities. The stomach was then entered and it was insufflated. On retroflexion, there was no noted hiatal hernia. Cardia and body of the stomach were normal. The antrum was normal. A ARIAS biopsy was taken. The pylorus was widely patent and the duodenal bulb was normal and passing the endoscope into the first and second portion of the duodenum revealed no abnormality. The endoscope was then withdrawn. The patient tolerated the procedure well and was taken to the recovery room in stable condition. [id number]/[facility] #: [id number] LUIS MANUEL
== END 2018-04-03 09:17 | disposition home or self-care (01) ==
LOC: OR 05:48
PROVIDERS: ATTEND Surgery
DX: K21.9 Gastro-esophageal reflux disease without esophagitis (principal); E66.01 Morbid (severe) obesity due to excess calories; Z68.41 Body mass index [BMI] 40.0-44.9, adult; G47.33 Obstructive sleep apnea (adult) (pediatric); Z87.891 Personal history of nicotine dependence; I49.1 Atrial premature depolarization; I47.1 Supraventricular tachycardia; M19.90 Unspecified osteoarthritis, unspecified site; F41.8 Other specified anxiety disorders; J45.909 Unspecified asthma, uncomplicated
CPT/HCPCS: 81025; 87077; J1100; J2250; J2704; J3010

== ENCOUNTER 2018-06-05 13:46 | Emergency (ER) | payer OTHER ==
[2018-06-05] MEDS ORDERED: Ondansetron ODT TAB* 4 MG PO ONE (15:17)
[2018-06-05] MEDS ORDERED: NS 0.9% 1000 ML* 1,000 ML IV ONE (15:17)
--- NOTE | 2018-06-05 15:23 | ED ---
Abdominal Pain/Female - HPI Summary HPI Summary: C/o RUQ pain, N/V x 2 days. (triage note specifies RLQ). Ab pain described as constant, progressive, achy, worse with movement. N/V with eating. Denies fever , urinary sx, back pain, vaginal sx, cough, sore throat, sob, cp. Hx of appy, ovarian cysts, kidney stones. Med hx = tachycardia, sleep apnea. Abdo/pel surgical hx = appy, c section x 1. LMP now - History of Current Complaint Chief Complaint: EDAbdPain Stated Complaint: ABD PAIN Time Seen by Provider: 06/05/18 15:06 Hx Obtained From: Patient Hx Last Menstrual Period: pt states "sometime in Jul" Onset/Duration: Gradual Onset Timing: Constant Severity Initially: Mild Severity Currently: Moderate Pain Intensity: 7 Pain Scale Used: 0-10 Numeric Location: Discrete At: RUQ Radiates: No Character: Cramping, Colicy Aggravating Factor(s): Food, Movement Alleviating Factor(s): Nothing Associated Signs and Symptoms: Positive: Nausea, Vomiting Allergies/Adverse Reactions: Allergies Allergy/AdvReac Type Severity Reaction Status Date / Time clindamycin Allergy Rash Verified 04/03/18 06:04 prochlorperazine Allergy See Comment Verified 04/03/18 06:04 [From Compazine] Sulfa (Sulfonamide Allergy Anaphylatic Verified 04/03/18 06:04 Antibiotics) Shock PMH/Surg Hx/FS Hx/Imm Hx Endocrine/Hematology History: Reports: Hx Anemia - IRON DEFICIENCY Denies: Hx Anticoagulant Therapy, Hx Diabetes, Hx Thyroid Disease Cardiovascular History: Reports: Other Cardiovascular Problems/Disorders - heart murmur Denies: Hx Congestive Heart Failure, Hx Hypertension - ON MEDS FOR TACHYCARDIA, Hx Pacemaker/ICD Respiratory History: Reports: Hx Asthma, Hx Sleep Apnea Denies: Hx Chronic Obstructive Pulmonary Disease (COPD), Hx Lung Cancer, Hx Pneumonia, Hx Pulmonary Embolism GI History: Reports: Hx Gastroesophageal Reflux Disease - PER PATIENT PRN MEDICATION FOR Denies: Hx Irritable Bowel, Hx Ulcer History: Reports: Hx Kidney Stones - LAST STONE 1 YR AGO, Other Problems/ Disorders - kidney stones Denies: Hx Renal Disease Musculoskeletal History: Reports: Hx Orthopedic Injury - right thumb ligament tear and reconstruction, Other Musculoskeletal History - RIGHT THUMB STRAIN/ SPRAIN Sensory History: Reports: Hx Contacts or Glasses - GLASSES Denies: Hx Hearing Aid Opthamlomology History: Reports: Hx Contacts or Glasses - GLASSES Neurological History: Reports: Hx Migraine, Hx Seizures - pseudo seizures and "seizures when I was younger--18." Denies: Hx Dementia, Hx Transient Ischemic Attacks (TIA) Psychiatric History: Reports: Hx Anxiety, Hx Eating Disorder, Hx Depression, Hx Bipolar Disorder, Hx of Violent Episodes Against Others Denies: Hx Panic Disorder, Hx Schizophrenia - Surgical History Surgery Procedure, Year, and Place: APPENDECTOMY, 08/2014, Right ULNAR COLLATERAL LIGAMENT Sx 07/2015 Hx Anesthesia Reactions: Yes - TOOK A LONG TIME TO WAKE UP AFTER APPY - Immunization History Date of Tetanus Vaccine: utd Date of Influenza Vaccine: unk Infectious Disease History: No Infectious Disease History: Reports: Hx Clostridium Difficile - hx c-diff - not active, Hx of Known/Suspected MRSA - mutiple places 2014, following tatoo on L shoulder Denies: Hx Hepatitis, Hx Human Immunodeficiency Virus (HIV), Hx Shingles, Hx Tuberculosis, Hx Known/Suspected VRE, Hx Known/Suspected VRSA, History Other Infectious Disease, Traveled Outside the [place] in Last 30 Days - Family History Known Family History: Positive: Cardiac Disease, Hypertension, Other - Migraines - Social History Alcohol Use: None Hx Substance Use: Yes Substance Use Type: Reports: None Substance Use Comment - Amount & Last Used: PT denies use Hx Tobacco Use: Yes Smoking Status (MU): Heavy Every Day Tobacco Smoker Type: Cigarettes Amount Used/How Often: 1ppd Length of Time of Smoking/Using Tobacco: at age 13 Have You Smoked in the Last Year: Yes Review of Systems Constitutional: Negative Eyes: Negative ENT: Negative Cardiovascular: Negative Respiratory: Negative Positive: Abdominal Pain, Vomiting, Nausea Genitourinary: Negative Musculoskeletal: Negative Skin: Negative Neurological: Negative Psychological: Normal All Other Systems Reviewed And Are Negative: Yes Physical Exam - Summary Physical Exam Summary: Abdomen most tender RUQ. + North. Minimal tenderness in RLQ, suprapubic, LLQ. Triage Information Reviewed: Yes Vital Signs On Initial Exam: Initial Vitals Temp Pulse Resp BP Pulse Ox 98.3 F 125 16 107/64 98 06/05/18 13:49 06/05/18 13:49 06/05/18 13:49 06/05/18 13:49 06/05/18 13:49 Vital Signs Reviewed: Yes Appearance: Positive: Well-Appearing Skin: Positive: Warm Head/Face: Positive: Normal Head/Face Inspection Eyes: Positive: Normal Neck: Positive: Supple Respiratory/Lung Sounds: Positive: Clear to Auscultation Cardiovascular: Positive: Normal Abdomen Description: Positive: Soft. Negative: Distended, Guarding, McBurney's Point Tenderness, Peritoneal Signs, Pulsatile Mass Musculoskeletal: Positive: Normal Neurological: Positive: Normal Psychiatric: Positive: Normal AVPU Assessment: Alert - Leela Coma Scale Best Eye Response: 4 - Spontaneous Best Motor Response: 6 - Obeys Commands Best Verbal Response: 5 - Oriented Coma Scale Total: 15 Diagnostics - Vital Signs Vital Signs Temp Pulse Resp BP Pulse Ox 06/05/18 13:49 98.3 F 125 16 107/64 98 - Laboratory Result Diagrams: 06/05/18 15:42 06/05/18 15:42 Lab Statement: Any lab studies that have been ordered have been reviewed, and results considered in the medical decision making process. - CT ab/pel w/o CT Interpretation: No Acute Changes CT Interpretation Completed By: Radiologist - Ultrasound No standard instances Ultrasound Interpretation: No Acute Changes - No evidence of cholelithiasis or cholecystitis. Abdominal Pain Fem Course/Dx - Course Course Of Treatment: C/o RUQ pain, N/V x 2 days. (triage note specifies RLQ). Ab pain described as constant, progressive, achy, worse with movement. N/V with eating. Denies fever, urinary sx, back pain, vaginal sx, cough, sore throat, sob , cp. Hx of appy, ovarian cysts, kidney stones. Med hx = tachycardia, sleep apnea. Abdo/pel surgical hx = appy, c section x 1. LMP now. Physical exam: Abdomen most tender RUQ. + North. Minimal tenderness in RLQ, suprapubic, LLQ. VS nml. Afebrile. Ultrasound gallbladder negative. CT abdomen and pelvis without contrast negative for kidney stones or any acute process. Ibuprofen for pain. Rx for Phenergan. Follow-up with primary care - Diagnoses Provider Diagnoses: Right sided abdominal pain Discharge - Sign-Out/Discharge Documenting (check all that apply): Patient Departure - Discharge Plan Condition: Stable Disposition: HOME Patient Education Materials: Acute Abdominal Pain (ED) Referrals: Alexandra Yarbrough DO [Primary Care Provider] - Roshan Lopez MD [Medical Doctor] - Additional Instructions: Follow-up with GI Dr Lopez. Return to the ED for any new or worsening symptoms - Billing Disposition and Condition Condition: STABLE Disposition: Home
[2018-06-05 15:52] LABS: ABS Basophils 0.1 10^3/ul (0-0.2); ABS Eosinophils 0.2 10^3/ul (0-0.6); ABS Lymphocytes 1.2 10^3/ul (1.0-4.8); ABS Monocytes 0.7 10^3/ul (0-0.8); ABS Neutrophils 5.9 10^3/ul (1.5-7.7); ABS Nucleated RBC 0 10^3/ul; Eosinophil % 2.6 % (0-6); Hematocrit 40 % (35-47); Lymphocyte % 14.5 % (25-47); Mean Corpuscular HGB Conc 33 g/dl (31-36); Mean Corpuscular Hemoglobin 26 pg (27-31); Mean Corpuscular Volume 81 fL (80-97); Mean Platelet Volume 8.1 um3 (7.4-10.4); Nucleated Red Blood Cells % 0.1; Platelet Count 270 10^3/ul (150-450); Red Blood Count 4.93 10^6/ul (4.00-5.40); Red Cell Distribution Width 16 % (10.5-15); White Blood Count 8.1 10^3/ul (3.5-10.8)
[2018-06-05 16:16] LABS: EGFR Non-African American 76.5 (>60)
--- NOTE | 2018-06-05 16:50 | RAD ---
INDICATION: Right upper quadrant pain COMPARISON: Gallbladder sonogram March 20, 2018 TECHNIQUE: Longitudinal and transverse scans of the right upper quadrant were obtained. Doppler interrogation of the hepatic and portal venous system was performed. FINDINGS: Liver: The liver is normal in size and echogenicity. There are no focal masses. The liver measures 14 cm in cephalocaudal dimension. Vessels: There is normal hepatic and portal venous flow. Bile ducts: There is no evidence of intrahepatic or extrahepatic ductal dilatation. The common duct measures 0.3 cm. Gallbladder: The gallbladder is partially contracted with resultant thickening gallbladder wall. There is no evidence of cholelithiasis. There is no tenderness over the gallbladder wall scanning. Pancreas: Not seen due to bowel gas Right kidney: The right kidney is normal in size and echogenicity. There are no masses or calculi. There is no evidence of hydronephrosis. The right kidney measures 10.7 x 4.3 x 4.8 cm. IVC and aorta: The aorta and superior vena cava appear normal. Fluid: There is no ascites. Other: None. IMPRESSION: PARTIALLY CONTRACTED GALLBLADDER, OTHERWISE NEGATIVE.
[2018-06-05 17:02] LABS: Urine Appearance Cloudy; Urine Blood Negative (Negative); Urine Color Yellow; Urine Ketones Negative (Negative); Urine Protein Negative (Negative); Urine Specific Gravity 1.023 (1.010-1.030); Urine Urobilinogen Negative (Negative)
[2018-06-05] MEDS ORDERED: Morphine VIAL* 10 MG/ML 1 ML VIAL IV ONE (17:40)
--- NOTE | 2018-06-05 18:35 | RAD ---
INDICATION: RIGHT side pain. Some nausea and vomiting. History of kidney stones. Post appendectomy. COMPARISON: RIGHT upper quadrant ultrasound of the same date. March 06, 2017 CT. TECHNIQUE: Multidetector CT images were obtained from the lung bases to the ischial tuberosities. Evaluation of the viscera is limited without IV contrast. Multiplanar reformation. REPORT: VISUALIZED INFERIOR THORAX: Unremarkable. LIVER / GALLBLADDER / PANCREAS / SPLEEN: Unremarkable liver, partially distended gallbladder, pancreas, and spleen. ALIMENTARY TRACT: No CT abnormality of the upper GI or small bowel. Post appendectomy. Mild colonic diverticulosis without findings of acute diverticulitis. Physiologic small volume of free pelvic fluid. Negative for free air or significant hernias. MESENTERIC: Unremarkable. ADRENAL / GENITOURINARY: Normal adrenal glands. Negative for urolithiasis or hydronephrosis. No conspicuous focal renal lesions. Unremarkable nondilated ureters. Incompletely distended urinary bladder is without suspicious finding. Few pelvic phleboliths noted including adjacent to the distal ureters. Unremarkable anteverted uterus and adnexal regions. Tampon in place in the vagina. RETROPERITONEAL: Negative for lymphadenopathy. VASCULAR: Normal diameter abdominal aorta and iliac arteries. Physiologic partial distention of the IVC. BONES: Subchondral sclerosis involving the iliac greater than and sacral margins of the sacroiliac joints as on the prior exam most consistent with osteitis condensans ilii without concern. Negative for suspicious osseous lesions. SOFT TISSUE: Unremarkable. IMPRESSION: #. Negative for urolithiasis or hydronephrosis. #. Post appendectomy. #. Mild colonic diverticulosis without findings of acute diverticulitis. #. No acute abdominal pelvic pathologic process evident.
[2018-06-05 19:33] VITALS: BP 117/58
== END 2018-06-05 19:32 | disposition home or self-care (01) ==
LOC: ED 13:46
DX: R10.11 Right upper quadrant pain (principal); R11.2 Nausea with vomiting, unspecified; K57.30 Diverticulosis of large intestine without perforation or abscess without bleeding; R00.0 Tachycardia, unspecified; G47.30 Sleep apnea, unspecified; F17.210 Nicotine dependence, cigarettes, uncomplicated; Z87.42 Personal history of other diseases of the female genital tract; Z87.442 Personal history of urinary calculi; Z79.899 Other long term (current) drug therapy; Z90.89 Acquired absence of other organs; Z88.3 Allergy status to other anti-infective agents; Z88.2 Allergy status to sulfonamides; Z88.8 Allergy status to other drugs, medicaments and biological substances
CPT/HCPCS: 36415; 74176; 76705; 80053; 81003; 83690; 84702; 85025; 86140; 96361; 96374; 99282; A9270-GY

== ENCOUNTER 2018-10-11 06:46 | Inpatient (IN) | payer OTHER ==
[~2018-10-11 06:46] MED LIST: Buffered Lidocaine 0.9% SYRIN* 5 ML/SYR SYRINGE INTRADERM ONE
[2018-10-11] MEDS ORDERED: Methylene Blue 0.5 %* 50 MG/10 ML AMP IV ONE ×2 (07:11→08:47)
[2018-10-11] MEDS ORDERED: Heparin VIAL(*) 5000 UNITS/ML VIAL (FIVE THOUSAND) ONE (07:26)
[2018-10-11] MEDS ORDERED: ceFAZolin 2 GM PREMIX in ORs 2 GM/50 ML BAG IVPB ONE (07:26)
[2018-10-11] MEDS ORDERED: Bupivacaine 0.25% EPI 200,000* 30 ML SDV ONE (08:47)
[2018-10-11] MEDS ORDERED: Rocuronium* 10 MG/ML VIAL ONE (08:55)
[2018-10-11] MEDS ORDERED: Propofol* 10 MG/ML 20 ML BTL ONE (08:55)
[2018-10-11] MEDS ORDERED: Lidocaine 2% PF * 5 ML VIAL ONE (08:56)
[2018-10-11] MEDS ORDERED: fentaNYL* 50 MCG/ML 2 ML VIAL (100 MCG VIAL) ONE ×3 (09:13→11:50)
[2018-10-11] MEDS ORDERED: Midazolam* 1 MG/ML 2 ML VIAL (2 MG) ONE (09:13)
[2018-10-11] MEDS ORDERED: Dexamethasone IV* 4 MG/ML 1 ML (4 MG) ONE (10:02)
[2018-10-11] MEDS ORDERED: Naloxone* 0.4 MG/ML 1 ML VIAL IV PRN (10:17)
[2018-10-11] MEDS ORDERED: DiMENhydriNATE IV* 50 MG/ML VIAL IV PUSH PRN (10:17)
[2018-10-11] MEDS ORDERED: Cisatracurium* 2 MG/ML MDV 5 ML ONE (10:34)
[2018-10-11] MEDS ORDERED: Neostigmine Methylsulfate* 2 MG/2 ML SYRINGE ONE (11:23)
[2018-10-11] MEDS ORDERED: diPHENhydraMINE IV* 50 MG/ML 1 ml VIAL (BENADRYL) SLOW PUSH PRN (11:25)
[2018-10-11] MEDS ORDERED: HYDROcodone/ACET. 7.5/325 LIQ* 15 ML UDC PO PRN (11:25)
[2018-10-11] MEDS ORDERED: Acetaminophen ADULT LIQ* 650 MG/20.3 ML UDC PO PRN (11:25)
[2018-10-11] MEDS ORDERED: HYDROmorphone INJ* 2 MG/ML CARPUJECT SYRINGE IV PRN (11:25)
--- NOTE | 2018-10-11 11:25 | BRIEFOPN ---
Brief Operative Note - Surgery Procedures: Procedures Pre-OP Diagnoses: Clinically severe obesity Post-op Diagnosis: same Procedure: Laparoscopic Colette an Y gastric bypass Surgeon: Michelle Asst: Bhavana Anethesia: ELIZABETHA EBL: <50cc IVF: 1000cc LR Specimen: none Drains: none
[2018-10-11] MEDS ORDERED: DiMENhydriNATE IV* 50 MG/ML VIAL ONE (11:50)
[2018-10-11] MEDS: fentaNYL* 50 MCG/ML 2 ML VIAL (100 MCG VIAL) IV PRN ×4 (11:53→12:16)
[2018-10-11] MEDS ORDERED: Scopolamine 1.5 mg* PATCH ONE (11:59)
[2018-10-11] MEDS: LR IV SCH ×2 (13:00→19:49)
[2018-10-11] MEDS: Ondansetron INJ* 2 MG/ML VIAL IV PRN (13:01)
[2018-10-11] MEDS: Ketorolac INJ* 30 MG/ML 1 ML VIAL IV PRN ×2 (13:24→19:41)
[2018-10-11] MEDS: Heparin VIAL(*) 5000 UNITS/ML VIAL (FIVE THOUSAND) SUBCUT SCH ×2 (14:30→21:26)
[2018-10-11] MEDS: HYDROmorphone INJ1* 1 MG/ML SYRINGE IV PRN ×3 (16:43→23:02)
--- NOTE | 2018-10-11 21:09 | OP ---
CC: Dr. Alexandra Yarbrough; [facility] * DATE OF OPERATION: 10/11/18 - ROOM #338 DATE OF : 88 SURGEON: Joey Martinez MD STRAIGHT CUTTER: TEDDY Cuellar ANESTHESIOLOGIST: Dr. French. ANESTHESIA: General. PRE-OP DIAGNOSIS: Clinically severe obesity. POST-OP DIAGNOSIS: Clinically severe obesity. OPERATIVE PROCEDURE: Laparoscopic Colette-en-Y gastric bypass. ESTIMATED BLOOD LOSS: Less than 50 cc. IV FLUIDS: 1 L. SPECIMEN: None. DRAINS: None. DESCRIPTION OF PROCEDURE: The patient was identified in the preoperative area. She was marked, consent was signed. We discussed the case with her again, she understood the plan and the risks involved with this procedure. She was taken to the operating room and placed on the operating table in the supine position. Preoperative antibiotics were given. Sequential devices were placed on bilateral lower extremities. General anesthesia was induced. The patient's abdomen was prepped and draped in the standard surgical fashion and a time-out was performed. Folds of the umbilicus were elevated anteriorly and a Veress needle inserted into the abdominal cavity, which was then allowed to insufflate to a pressure of 15 mmHg. The patient tolerated the insufflation well. [place] between the xiphoid and the umbilicus, a 12-mm trocar was inserted. Laparoscope was inserted through this and there was no evidence of injury from the trocar insertion over the Veress needle which was then removed. Additional trocars were then placed in the following position: A 12 mm and 5 mm in the left upper quadrant; a 12 mm and 5 mm in the right upper quadrant. Table was repositioned to steep reverse Trendelenburg. A Naomy retractor was inserted through a subxiphoid incision and the liver was retracted anteriorly into the right. This exposed the gastroesophageal fat pad. There was no evidence of a hiatal hernia. The fat pad was then grasped and retracted to its right lower quadrant, and a blunt dissection was carried out to expose the left crura. Next, a retrogastric tunnel was made at approximately the third crossing vessel at the lesser curvature. I placed a 45-mm mckenzie DELIA stapling across this and then completed the small stomach pouch with 2 additional 60-mm mckenzie DELIA stapling fires. The pouch seemed to be appropriate size, and again there was no evidence of a hiatal hernia. Next, the omentum was retracted superiorly, and the colon identified as well as the transverse mesentery and ligament of Treitz identified. Next, we counted off 40 cm from the ligament of Treitz and made a window through the mesentery. The bowel was then clamped and brought up to the stomach pouch without any signs of a tension. We then sutured what would become the Colette limb to the cut edge of the stomach pouch. The stay sutures were 2-0 silk and we used three of them in all. Next, over an Rachel tube, a gastrotomy was made with the LigaSure device and an antrotomy was made and the two were matted with a 30-mm mckenzie DELIA stapling device and firing almost the entire cartridge. We could see inside the mucosa. Hemostasis was excellent. The staple was removed and the common defect was reapproximated with 3-0 PDS suture starting inferiorly and superiorly and tying them in the middle. Next, the bowel was transected. We noted that the window that was initially made was too close to our gastrojejunostomy and for this reason, we placed a more proximal window along the biliopancreatic limb. A 45-mm mckenzie DELIA stapling device was fired across this and we then next tested the gastrojejunostomy by placing our Rachel tube in to the proximal Colette limb, clamping this and performing a methylene blue dye test, which was negative in the appropriate fashion. The blue dye was suctioned as best as possible by the anesthesiologist through the Rachel tube, which was then removed altogether. The review of the gastrojejunostomy showed that it was intact, appropriate sizing. There was no bleeding. The Naomy retractor was then removed from the liver. Next, the jejunojejunostomy needed to be created. We counted off approximately 75 cm from the Colette limb and brought the small bowel in apposition to this and created a jejunojejunostomy after making enterotomies. This was performed with a 60-mm mckenzie DELIA stapling device and the common defect was reapproximated with 2- 0 silk sutures in [id number] fashion. The mesenteric defect was similarly closed. Review of the abdomen showed no bleeding. The abdomen was allowed to collapse. Trocar was removed under direct vision. All skin incisions were reapproximated with 4-0 Monocryl subcuticular sutures. Steri-Strips and sterile dressing were applied. The patient tolerated the procedure well, was transferred to the PACU in stable condition. [id number]/[facility] #: [id number] MTDD
[2018-10-11] MEDS: Famotidine IV* 10 MG/ML 2 ML (20 mg) IV SLOW PU SCH (21:25)
[2018-10-12] MEDS: LR IV SCH ×2 (02:39→09:18)
[2018-10-12] MEDS: HYDROmorphone INJ1* 1 MG/ML SYRINGE IV PRN ×5 (02:58→20:12)
[2018-10-12] MEDS: Ketorolac INJ* 30 MG/ML 1 ML VIAL IV PRN ×2 (06:21→13:07)
[2018-10-12] MEDS: Heparin VIAL(*) 5000 UNITS/ML VIAL (FIVE THOUSAND) SUBCUT SCH ×3 (06:23→21:48)
[2018-10-12] MEDS: Famotidine IV* 10 MG/ML 2 ML (20 mg) IV SLOW PU SCH ×2 (08:02→21:46)
[2018-10-12] MEDS: Ondansetron INJ* 2 MG/ML VIAL IV PRN (11:02)
[2018-10-12] MEDS: D5W 1/2 NS KCl 20 Meq 1000 ML* 1,000 ML IV SCH ×2 (13:06→22:07)
--- NOTE | 2018-10-12 14:41 | PN ---
Progress Note - Progress Note Date of Service: 10/12/18 SOAP: Subjective: Pt seen and examined. feels well. no flatus, no nausea Objective: Temp Pulse Resp BP Pulse Ox 97.9 F 61 16 96/49 97 10/12/18 11:14 10/12/18 11:14 10/12/18 11:58 10/12/18 11:14 10/12/18 11:14 a and ox3, nad lungs clear ado: soft/ ND/NT ext wnl UGI: slow passage of contrast Assessment: POD1 rygb Plan: bariatric clears d/c planning [facility] to cover me until 10/16- pt aware.
[2018-10-13] MEDS: HYDROmorphone INJ1* 1 MG/ML SYRINGE IV PRN (03:59)
[2018-10-13] MEDS: Ondansetron INJ* 2 MG/ML VIAL IV PRN (04:38)
[2018-10-13] MEDS: Heparin VIAL(*) 5000 UNITS/ML VIAL (FIVE THOUSAND) SUBCUT SCH (05:02)
[2018-10-13] MEDS: D5W 1/2 NS KCl 20 Meq 1000 ML* 1,000 ML IV SCH (07:03)
[2018-10-13] MEDS: Famotidine IV* 10 MG/ML 2 ML (20 mg) IV SLOW PU SCH (09:07)
--- NOTE | 2018-10-13 09:57 | PN ---
Progress Note - Progress Note Date of Service: 10/13/18 Note: S: POD #2. "Gas" pains, and discomfort with drinking, but meeting goal of 4 oz/ hr. No flatus or BM. Ambulating. Voiding. O: Vital Signs - 8 hr 10/13/18 10/13/18 10/13/18 03:34 03:59 05:05 Temperature 98.0 F Pulse Rate 81 Respiratory 16 20 18 Rate Blood Pressure 93/46 (mmHg) O2 Sat by Pulse 100 Oximetry 10/13/18 10/13/18 10/13/18 07:38 07:40 08:08 Temperature 98.4 F Pulse Rate 64 Respiratory 18 18 14 Rate Blood Pressure 97/47 (mmHg) O2 Sat by Pulse 100 99 Oximetry Intake and Output Last 24 Hours 10/11/18 10/12/18 10/13/18 10/14/18 06:59 06:59 06:59 06:59 Intake Total 2980 2730 1054 Output Total 730 550 250 Balance 2250 2180 804 Weight 214 lb Intake: IV Fluids 2980 2430 994 D5W 1/2 NS 20 meq KCL 990 994 LR 1980 1440 lr 1000 Oral 0 300 60 Output: Urine 630 550 250 Estimated Blood Loss 100 Gen: appears comfortable; NAD Heart: reg Lungs: clear ant Abd: +BS; lap sites clean; soft; min tenderness to palp A: s/p Lap RYGB, doing well P: ok for d/c home; instructions reviewed; f/u at [facility] as sched
[2018-10-13 11:51] VITALS: BP 106/53
--- NOTE | 2018-10-14 03:49 | DS ---
CC: Dr. Alexandra Yarbrough * DISCHARGE SUMMARY: DATE OF ADMISSION: 10/11/18 DATE OF DISCHARGE: 10/13/18 ATTENDING SURGEON: Dr. Joey Martinez.* (DICTATED BY TEDDY OROPEZA) HOSPITAL COURSE: Please refer to admission history and physical and operative note for details. The patient was taken to the operating room on 10/11/18, at which time she underwent laparoscopic Colette-en-Y gastric bypass with Dr. Martinez. The surgery itself was uneventful. Her upper GI on the morning of postoperative day #1 showed no evidence of leak, though transit time with contrast was delayed. She has been taking bariatric clear liquids fairly well since that time and as of the morning of postoperative day #2, her intake is adequate. Pain is also well controlled. She normally is on metoprolol for tachycardia, though has not needed it postoperatively and in fact, will continue to hold it if her pulse rate is controlled. She will, otherwise, resume her other usual home medications. She has a followup scheduled at [facility] next week. We discussed diet instructions, activity, and wound care. TEDDY OROPEZA [id number]/[facility] #: [id number] LUIS MANUEL
== END 2018-10-13 11:50 | disposition home or self-care (01) | DRG 403 ==
LOC: AA 06:46 → SSU 11:25
PROVIDERS: ADMIT Surgery; ATTEND Surgery
PROC: 0D164ZA Bypass Stomach to Jejunum, Percutaneous Endoscopic Approach (ICD-10-PCS; principal; 2018-10-11 08:30)
DX: E66.01 Morbid (severe) obesity due to excess calories (principal); R00.0 Tachycardia, unspecified; F41.9 Anxiety disorder, unspecified; F32.9 Major depressive disorder, single episode, unspecified; K21.9 Gastro-esophageal reflux disease without esophagitis; G43.909 Migraine, unspecified, not intractable, without status migrainosus; G40.909 Epilepsy, unspecified, not intractable, without status epilepticus; M17.0 Bilateral primary osteoarthritis of knee; I08.1 Rheumatic disorders of both mitral and tricuspid valves; J45.909 Unspecified asthma, uncomplicated; Z90.89 Acquired absence of other organs; Z82.49 Family history of ischemic heart disease and other diseases of the circulatory system; Z81.8 Family history of other mental and behavioral disorders; Z83.49 Family history of other endocrine, nutritional and metabolic diseases; Z68.41 Body mass index [BMI] 40.0-44.9, adult; Z88.1 Allergy status to other antibiotic agents; Z88.8 Allergy status to other drugs, medicaments and biological substances; Z88.2 Allergy status to sulfonamides; Z80.9 Family history of malignant neoplasm, unspecified; Z87.891 Personal history of nicotine dependence
CPT/HCPCS: 74246; 81025; A9270-GY; C1776; J0690; J1100; J1170; J1240; J1644; J1885; J2250; J2405; J2704; J3010

== ENCOUNTER 2018-11-24 10:20 | Emergency (ER) | payer OTHER ==
[2018-11-24 10:36] VITALS: BP 93/63
[2018-11-24 11:23] LABS: Influenza A Molecular POSITIVE (Negative)
--- NOTE | 2018-11-24 11:34 | UC ---
FLU HPI - HPI Summary HPI Summary: 28-year-old female presents with onset of fever, chills, general malaise, body aches, nasal congestion, clear nasal discharge, sore throat, and a nonproductive cough yesterday. Her spouse and child were recently sick with influenza. Has history of asthma but has not needed to use her inhaler. Denies ear pain, dysphagia, chest pain, palpitations, shortness of breath, wheezing, abdominal pain, nausea, vomiting, or diarrhea. - History of Current Complaint Chief Complaint: UCGeneralIllness Stated Complaint: FLU LIKE SYMPTOMS Time Seen by Provider: 11/24/18 11:29 Hx Obtained From: Patient Hx Last Menstrual Period: 10/29/18 Pain Intensity: 6 - Allergy/Home Medications Allergies/Adverse Reactions: Allergies Allergy/AdvReac Type Severity Reaction Status Date / Time clindamycin Allergy Rash Verified 11/24/18 10:36 prochlorperazine Allergy See Comment Verified 11/24/18 10:36 [From Compazine] Sulfa (Sulfonamide Allergy Anaphylatic Verified 11/24/18 10:36 Antibiotics) Shock PMH/Surg Hx/FS Hx/Imm Hx Previously Healthy: Yes Respiratory History: Asthma Neurological History: Migraine Other History Of: Negative For: HIV, Hepatitis B, Hepatitis C, Anticoagulant Therapy - Surgical History Surgical History: Yes Surgery Procedure, Year, and Place: APPENDECTOMY, 08/2014, Right ULNAR COLLATERAL LIGAMENT Sx 07/2015 gastric bypass - Family History Known Family History: Positive: Cardiac Disease, Hypertension, Other - Migraines - Social History Occupation: Employed Full-time Lives: With Family Alcohol Use: None Substance Use Type: None Substance Use Comment - Amount & Last Used: PT denies use Smoking Status (MU): Former Smoker Type: Cigarettes Amount Used/How Often: 1ppd Length of Time of Smoking/Using Tobacco: at age 13 Have You Smoked in the Last Year: Yes When Did the Patient Quit Smoking/Using Tobacco: Quitting currently Household Exposure Type: Cigarettes - Immunization History Most Recent Influenza Vaccination: 07/2015 Most Recent Tetanus Shot: 05/2014 Most Recent Pneumonia Vaccination: none Review of Systems All Other Systems Reviewed And Are Negative: Yes Constitutional: Positive: Chills, Fatigue Skin: Negative: Rash Eyes: Negative: Drainage, Eye Redness ENT: Positive: Sore Throat, Nasal Discharge, Sinus Congestion. Negative: Ear Ache, Sinus Pain/Tenderness Respiratory: Positive: Cough. Negative: Shortness Of Breath Cardiovascular: Negative: Palpitations, Chest Pain Gastrointestinal: Negative: Abdominal Pain, Vomiting, Diarrhea, Nausea Genitourinary: Positive: Negative Musculoskeletal: Positive: Myalgia Neurological: Positive: Negative Is Patient Immunocompromised?: No Physical Exam - Summary Physical Exam Summary: GENERAL APPEARANCE: Well developed, well nourished, alert and cooperative, and appears to be in no acute distress. EYES: Conjunctiva clear. No discharge. Vision is grossly intact. EARS: External auditory canals and tympanic membranes clear, hearing grossly intact. NOSE: Moderate nasal congestion with mucosal erythema and edema. Clear discharge. THROAT: Mild pharyngeal erythema. No tonsilar inflammation, swelling, exudate, or lesions. NECK: Neck supple, non-tender without lymphadenopathy. CARDIAC: Normal S1 and S2. No S3, S4 or murmurs. Rhythm is regular. There is no peripheral edema, cyanosis or pallor. Extremities are warm and well perfused. Capillary refill is less than 2 seconds. LUNGS: Clear to auscultation without rales, rhonchi, wheezing or diminished breath sounds. ABDOMEN: Positive bowel sounds. Soft, nondistended, nontender. No guarding or rebound. No masses or hepatosplenomegally. MUSKULOSKELETAL: ROM intact to all extremities. No joint erythema or tenderness. Normal muscular development. Normal gait. SKIN: Skin normal color, texture and turgor with no lesions or eruptions. Triage Information Reviewed: Yes Vital Signs: Initial Vital Signs Temp 98 F 11/24/18 10:33 Pulse 110 11/24/18 10:33 Resp 20 11/24/18 10:33 BP 93/63 11/24/18 10:33 Pulse Ox 99 11/24/18 10:33 Vital Signs Reviewed: Yes Diagnostics - Laboratory Diagnostic Studies Completed/Ordered: Rapid flu positive for influenza A Flu Course/Dx - Course Course Of Treatment: 28-year-old female presents with onset of fever, chills, general malaise, body aches, nasal congestion, clear nasal discharge, sore throat, and a nonproductive cough yesterday. Her spouse and child were recently sick with influenza. Has history of asthma but has not needed to use her inhaler. Denies ear pain, dysphagia, chest pain, palpitations, shortness of breath, wheezing, abdominal pain, nausea, vomiting, or diarrhea. She was afebrile, mildly tachycardic but otherwise vital signs were stable. Exam revealed an adult female in no acute distress with moderate nasal congestion, nasal mucosal erythema and edema, clear discharge, mild pharyngeal erythema without tonsillar swelling or exudate, clear bilateral breath sounds, and occasional dry nonproductive cough. Rapid influenza was positive for influenza A. With her history of asthma Will start her on Tamiflu 75 mg twice a day 5 days. Patient states that she is out of her albuterol inhaler therefore I will renew this for her. She is to follow-up with her primary care provider in 7 days if symptoms do not improve. Anticipatory guidance and warning symptoms were reviewed with the patient. She verbalizes understanding and agrees with plan of care. - Differential Dx/Diagnosis Differential Diagnosis/HQI/PQRI: Bronchitis, Influenza, Upper Respiratory Infection Provider Diagnosis: Influenza A Discharge - Sign-Out/Discharge Documenting (check all that apply): Patient Departure All imaging exams completed and their final reports reviewed: No Studies - Discharge Plan Condition: Stable Disposition: HOME Prescriptions: Albuterol HFA INHALER* [Ventolin HFA Inhaler*] 2 puff INH Q4H PRN #1 mdi PRN Reason: Sob/Wheezing Oseltamivir SUSP 75 MG dose* [Tamiflu SUSP 75 MG dose*] 75 mg PO BID 5 Days #1 bottle Patient Education Materials: Influenza (ED) Forms: *Work Release Referrals: Alexandra Yarbrough DO [Primary Care Provider] - 7 Days (If no improvement in symptoms.) Additional Instructions: Your rapid flu test performed in the clinic today was positive for influenza A. The flu typically runs its course over 7-10 days. Start Tamiflu 1 capsule twice a day for 5 days. Tamiflu is not a cure for the flu but is given to help minimize symptoms and shorten the duration of symptoms by 1-2 days. Drink plenty of fluids to avoid dehydration especially if you are running any fever. May use an over the counter decongestant such as Sudafed as needed for congestion. May use over the counter cough suppressant such as Robitussin DM as needed for cough. Take over the counter acetaminophen (Tylenol) or ibuprofen (Advil, Motrin) according to directions as needed for pain or fever. Use salt water gargles several times a day if you have a sore throat. You may also use Chloraseptic spray or Cepacol lonzenges according to directions which contain a numbing medication and can provide some temporary relief from your sore throat. Follow up with your primary care provider in 7 days if symptoms persist. Seek immediate medical attention in the emergency room if you have fever greater than 100.5 F despite taking acetaminophen or ibuprofen, have chest pain , difficulty breathing, are unable to swallow, or have any worsening of symptoms. - Billing Disposition and Condition Condition: STABLE Disposition: Home - Attestation Statements Provider Attestation: Per institutional requirements, I have reviewed the chart, however, I was not consulted specifically or made aware of this patient by the midlevel provider. I did not personally evaluate, interact with , or disposition this patient.
== END 2018-11-24 11:47 | disposition home or self-care (01) ==
LOC: UCEAST 10:20
DX: J10.1 Influenza due to other identified influenza virus with other respiratory manifestations (principal); Z88.1 Allergy status to other antibiotic agents; Z88.2 Allergy status to sulfonamides; Z88.8 Allergy status to other drugs, medicaments and biological substances; Z87.891 Personal history of nicotine dependence
CPT/HCPCS: 99212; G0463

== ENCOUNTER 2018-11-28 00:40 | Emergency (ER) | payer OTHER ==
[2018-11-28] MEDS ORDERED: NS 0.9% 1000 ML** 2,000 ML IV ONE (02:11)
[2018-11-28] MEDS ORDERED: Ondansetron INJ* 2 MG/ML VIAL IV ONE (02:12)
--- NOTE | 2018-11-28 02:27 | ED ---
GI/ HPI - HPI Summary HPI Summary: This patient is a 28 year old F presenting to ED with a chief complaint of N/V since 1 week ago. The patient had a gastric bypass on 10/11/2018. She had a stricture but it has gotten better and the swelling has gone down. Her surgeon wants her to be re-evaluated within the next few days. The patient also contracted the flu 5 days ago which caused her to cough, dry heave, and not be able to take any food or fluids down. She has not had PO since 4 days ago. She only had about 4 oz of fluid today. The patient rates the pain 2/10 in severity. Symptoms aggravated by nothing. Symptoms alleviated by nothing. Patient reports abdominal pain secondary to dry heaving and vomiting. At around 2300 yesterday night, she had a couple rounds of palpitation which made her come in to the ED. - History of Current Complaint Chief Complaint: EDNauseaVomitDiarrh Time Seen by Provider: 11/28/18 02:10 Stated Complaint: GENERAL ILLNESS Hx Obtained From: Patient Hx Last Menstrual Period: 10/29/18 Onset/Duration: Started Days Ago - 5 days ago, Still Present Timing: Constant, Lasting Days Severity: Mild Current Severity: Mild Pain Intensity: 2 Associated Signs and Symptoms: Positive: Nausea, Vomiting, Abdominal Pain, Cough , Other: - dry heaving - Additional Pertinent History Primary Care Physician: [id number] - Allergy/Home Medications Allergies/Adverse Reactions: Allergies Allergy/AdvReac Type Severity Reaction Status Date / Time clindamycin Allergy Rash Verified 11/24/18 10:36 prochlorperazine Allergy See Comment Verified 11/24/18 10:36 [From Compazine] Sulfa (Sulfonamide Allergy Anaphylatic Verified 11/24/18 10:36 Antibiotics) Shock PMH/Surg Hx/FS Hx/Imm Hx Endocrine/Hematology History: Reports: Hx Anemia - IRON DEFICIENCY Denies: Hx Anticoagulant Therapy, Hx Diabetes, Hx Thyroid Disease Cardiovascular History: Reports: Other Cardiovascular Problems/Disorders - heart murmur Denies: Hx Congestive Heart Failure, Hx Hypertension - ON MEDS FOR TACHYCARDIA, Hx Pacemaker/ICD Respiratory History: Reports: Hx Asthma, Hx Sleep Apnea Denies: Hx Chronic Obstructive Pulmonary Disease (COPD), Hx Lung Cancer, Hx Pneumonia, Hx Pulmonary Embolism GI History: Reports: Hx Gastroesophageal Reflux Disease - PER PATIENT PRN MEDICATION FOR Denies: Hx Irritable Bowel, Hx Ulcer History: Reports: Hx Kidney Infection, Hx Kidney Stones - LAST STONE 1 YR AGO , Other Problems/Disorders - kidney stones Denies: Hx Renal Disease Musculoskeletal History: Reports: Hx Orthopedic Injury - right thumb ligament tear and reconstruction, Hx Tendonitis - KNEES, Other Musculoskeletal History - RIGHT THUMB STRAIN/SPRAIN Sensory History: Reports: Hx Contacts or Glasses - GLASSES Denies: Hx Hearing Aid Opthamlomology History: Reports: Hx Contacts or Glasses - GLASSES Neurological History: Reports: Hx Migraine, Hx Seizures - pseudo seizures and "seizures when I was younger--18." Denies: Hx Dementia, Hx Transient Ischemic Attacks (TIA) Psychiatric History: Reports: Hx Anxiety, Hx Eating Disorder, Hx Depression, Hx Bipolar Disorder, Hx of Violent Episodes Against Others Denies: Hx Panic Disorder, Hx Schizophrenia - Surgical History Surgery Procedure, Year, and Place: APPENDECTOMY, 08/2014, Right ULNAR COLLATERAL LIGAMENT Sx 07/2015 gastric bypass Hx Anesthesia Reactions: Yes - TOOK A LONG TIME TO WAKE UP AFTER APPY - Immunization History Date of Tetanus Vaccine: utd Date of Influenza Vaccine: unk Infectious Disease History: No Infectious Disease History: Reports: Hx Clostridium Difficile - hx c-diff - not active, Hx of Known/Suspected MRSA - mutiple places 2014, following tatoo on L shoulder Denies: Hx Hepatitis, Hx Human Immunodeficiency Virus (HIV), Hx Shingles, Hx Tuberculosis, Hx Known/Suspected VRE, Hx Known/Suspected VRSA, History Other Infectious Disease, Traveled Outside the [place] in Last 30 Days - Family History Known Family History: Positive: Cardiac Disease, Hypertension, Other - Migraines - Social History Alcohol Use: None Hx Substance Use: Yes Substance Use Type: Reports: None Substance Use Comment - Amount & Last Used: PT denies use Hx Tobacco Use: Yes Smoking Status (MU): Former Smoker Type: Cigarettes Amount Used/How Often: 1ppd Length of Time of Smoking/Using Tobacco: at age 13 Have You Smoked in the Last Year: Yes Review of Systems Positive: Palpitations Positive: Cough Positive: Abdominal Pain, Vomiting, Nausea, Other - dry heaving All Other Systems Reviewed And Are Negative: Yes Physical Exam - Summary Physical Exam Summary: Appearance: Well-appearing, Well-nourished, lying in bed comfortably Skin: Warm, dry, no obvious rash Eyes: sclera anicteric, no conjunctival pallor ENT: mucous membranes moist, pharynx appears normal Neck: Supple, nontender Respiratory: Clear to auscultation, no signs of respiratory distress Cardiovascular: Normal S1, S2. No murmurs. Normal distal pulses in tibial and radial bilaterally. Abdomen: Soft, mild abdominal tenderness, normal active bowel sounds present, no perineal signs Musculoskeletal: Normal, Strength/ROM Intact Neurological: A&Ox3, awake and alert, mentation is normal, speech is fluent and appropriate Psychiatric: affect is normal, does not appear anxious or depressed Triage Information Reviewed: Yes Vital Signs On Initial Exam: Initial Vitals Temp Pulse Resp BP Pulse Ox 96.6 F 108 16 133/83 99 11/28/18 00:43 11/28/18 00:43 11/28/18 00:43 11/28/18 00:43 11/28/18 00:43 Vital Signs Reviewed: Yes Diagnostics - Vital Signs Vital Signs Temp Pulse Resp BP Pulse Ox 11/28/18 00:43 96.6 F 108 16 133/83 99 - Laboratory Result Diagrams: 11/28/18 02:35 11/28/18 02:35 Lab Statement: Any lab studies that have been ordered have been reviewed, and results considered in the medical decision making process. - CT CT abd/pel CT Interpretation Completed By: Radiologist Summary of CT Findings: 1. No acute findings. 2. Prior gastric bypass with intact anastomosis. No evidence of bowel obstruction. - EKG 0219 Cardiac Rate: NL - 62 BPM EKG Rhythm: Sinus Rhythm Summary of EKG Findings: P waves, QRS complex, and T waves are within normal limits, T waves and intervals are normal, no ischemic changes. This is a normal EKG. GIGU Course/Dx - Course Assessment/Plan: This patient is a 28 year old F presenting to ED with a chief complaint of N/V since 1 week ago. The patient had a gastric bypass on 2017. Normal EKG. CT abd/pel reveals 1. No acute findings. 2. Prior gastric bypass with intact anastomosis. No evidence of bowel obstruction. This patient will be discharged with dx of acut vomiting. Patient understands and agrees with this plan. - Diagnoses Differential Diagnoses - Female: Other - acute vomiting Provider Diagnoses: Acute vomiting Discharge - Sign-Out/Discharge Documenting (check all that apply): Patient Departure - discharge Patient Received Moderate/Deep Sedation with Procedure: No - Discharge Plan Condition: Good Disposition: HOME Prescriptions: Ondansetron ODT TAB* [Zofran 4 MG Odt TAB*] 8 mg PO Q6H PRN #14 tab.odt PRN Reason: Nausea Patient Education Materials: Acute Nausea and Vomiting (ED) Referrals: Joey Martinez MD [Medical Doctor] - Additional Instructions: Your CT scan did not show any evidence of obstruction or any other significant problem. For now we will just treat the symptoms with anti emetics. Stick to your liquid diet for the next few days. - Billing Disposition and Condition Condition: GOOD Disposition: Home - Attestation Statements Document Initiated by [facility]: Yes Documenting Scribe: Osmin Lynn Provider For Whom [facility] is Documenting (Include Credential): Braden Gonzáles MD Scribe Attestation: Osmin Saavedra, scribed for Braden Gonzáles MD on 11/30/18 at 0220. Scribe Documentation Reviewed: Yes Provider Attestation: The documentation as recorded by the Osmin merida accurately reflects the service I personally performed and the decisions made by Braden see MD Status of Scribe Document: Viewed
[2018-11-28 02:45] LABS: ABS Basophils 0 10^3/ul (0-0.2); ABS Eosinophils 0.1 10^3/ul (0-0.6); ABS Lymphocytes 1.9 10^3/ul (1.0-4.8); ABS Monocytes 0.5 10^3/ul (0-0.8); ABS Nucleated RBC 0 10^3/ul; Eosinophil % 1.6 %; Hematocrit 43 % (35-47); Hemoglobin 14.1 g/dl (12.0-16.0); Lymphocyte % 41.9 %; Mean Corpuscular HGB Conc 33 g/dl (31-36); Mean Corpuscular Hemoglobin 27 pg (27-31); Mean Corpuscular Volume 81 fL (80-97); Mean Platelet Volume 9.5 fL (7.4-10.4); Nucleated Red Blood Cells % 0; Platelet Count 214 10^3/ul (150-450); Red Blood Count 5.31 10^6/ul (4.00-5.40); Red Cell Distribution Width 16 % (10.5-15); White Blood Count 4.5 10^3/ul (3.5-10.8)
[2018-11-28 03:03] LABS: Albumin 3.6 g/dL (3.2-5.2); Albumin/Globulin Ratio 1.4 (1-3); BUN/Creatinine Ratio 15.4 (8-20); Calcium 8.9 mg/dL (8.6-10.3); EGFR African American 130.4 (>60); EGFR Non-African American 107.8 (>60); Globulin 2.6 g/dL (2-4); Potassium 3.5 mmol/L (3.5-5.0); Total Bilirubin 0.3 mg/dL (0.2-1.0); Total Protein 6.2 g/dL (6.4-8.9)
[2018-11-28] MEDS ORDERED: Iohexol 300* (CONTRAST) 10 ML SDV IV ONE (04:47)
[2018-11-28 05:39] VITALS: BP 112/72
== END 2018-11-28 05:39 | disposition home or self-care (01) ==
LOC: ED 00:40
DX: R11.10 Vomiting, unspecified (principal); Z87.891 Personal history of nicotine dependence; D50.9 Iron deficiency anemia, unspecified; K21.9 Gastro-esophageal reflux disease without esophagitis; Z87.442 Personal history of urinary calculi; J45.909 Unspecified asthma, uncomplicated; G47.30 Sleep apnea, unspecified; Z88.2 Allergy status to sulfonamides; Z88.1 Allergy status to other antibiotic agents
CPT/HCPCS: 36415; 74177; 80053; 83605; 83690; 85025; 93005; 96361; 96374; 96375; 99282; J2405; Q9967

== ENCOUNTER 2019-05-29 16:13 | Observation (INO) | payer OTHER ==
[2019-05-29] MEDS: HYDROmorphone INJ1* 1 MG/ML SYRINGE IV SLOW PU PRN ×2 (17:24→19:45)
[2019-05-29] MEDS: Lactated Ringers 1000 ML Bag* 1,000 ML IV SCH (17:34)
[2019-05-29 17:36] LABS: ABS Basophils 0.1 10^3/ul (0-0.2); ABS Eosinophils 0.1 10^3/ul (0-0.6); ABS Lymphocytes 3.1 10^3/ul (1.0-4.8); ABS Monocytes 0.4 10^3/ul (0-0.8); ABS Neutrophils 4.8 10^3/ul (1.5-7.7); Eosinophil % 1.3 %; Hematocrit 39 % (35-47); Hemoglobin 12.8 g/dL (12.0-16.0); Lymphocyte % 36.2 %; Mean Corpuscular HGB Conc 33 g/dL (31-36); Mean Corpuscular Hemoglobin 28 pg (27-31); Mean Corpuscular Volume 83 fL (80-97); Mean Platelet Volume 9.1 fL (7.4-10.4); Platelet Count 267 10^3/uL (150-450); Red Blood Count 4.66 10^6 /uL (3.70-4.87); Red Cell Distribution Width 14 % (10-15); White Blood Count 8.5 10^3/uL (3.5-10.8)
[2019-05-29 17:52] LABS: ALT 31 U/L (7-52); AST 16 U/L (13-39); Albumin 3.5 g/dL (3.2-5.2); Albumin/Globulin Ratio 1.3 (1-3); Alkaline Phosphatase 48 U/L (34-104); Anion Gap 7 mmol/L (2-11); BUN/Creatinine Ratio 12.4 (8-20); Blood Urea Nitrogen 11 mg/dL (6-24); CO2 Carbon Dioxide 25 mmol/L (22-32); Calcium 8.7 mg/dL (8.6-10.3); Chloride 108 mmol/L (101-111); EGFR African American 90.7 (>60); Globulin 2.6 g/dL (2-4); Glucose 91 mg/dL (70-100); Potassium 3.7 mmol/L (3.5-5.0); Sodium 140 mmol/L (135-145); Total Protein 6.1 g/dL (6.4-8.9)
[2019-05-29 18:21] LABS: Urine Appearance Cloudy; Urine Bacteria Absent (Absent); Urine Bilirubin Negative (Negative); Urine Blood 2+ (Negative); Urine Color Yellow; Urine Glucose Negative (Negative); Urine Granular Casts Present (Absent); Urine Ketones Trace (Negative); Urine Nitrite Negative (Negative); Urine Protein 2+(100 mg/dL) (Negative); Urine Red Blood Cell 1+(3-5/hpf) (Absent); Urine Specific Gravity 1.016 (1.010-1.030); Urine Squamous Epithelial Cell Present (Absent); Urine Urobilinogen Negative (Negative); Urine White Blood Cell 1+(6-10/hpf) (Absent)
[2019-05-29 18:34] LABS: HCG Pregnancy < 0.60 mIU/mL
[2019-05-29] MEDS ORDERED: Iohexol 300* (CONTRAST) 10 ML SDV IV ONE (18:38)
[2019-05-29] MEDS: Ondansetron INJ* 2 MG/ML VIAL IV PRN (19:36)
[2019-05-29] MEDS: Ketorolac INJ* 30 MG/ML 1 ML VIAL IV PUSH PRN (21:56)
[2019-05-29] MEDS ORDERED: Pantoprazole IV* 40 MG IV SCH (22:00)
[2019-05-30] MEDS: Lactated Ringers 1000 ML Bag* 1,000 ML IV SCH ×2 (02:28→14:54)
[2019-05-30] MEDS: Ketorolac INJ* 30 MG/ML 1 ML VIAL IV PUSH PRN (05:10)
[2019-05-30] MEDS: Ondansetron INJ* 2 MG/ML VIAL IV PRN (09:24)
[2019-05-30] MEDS ORDERED: Morphine INJ* 2 MG/ML 1 ML SYRINGE (TWO MG - NEW SYRINGE VERSION) ONE (09:54)
[2019-05-30] MEDS ORDERED: Morphine INJ* 2 MG/ML 1 ML SYRINGE (TWO MG - NEW SYRINGE VERSION) IV PRN (10:12)
[2019-05-30] MEDS ORDERED: Bupivacaine 0.25% W/EPI* 10 ML SDV ONE (11:42)
--- NOTE | 2019-05-30 11:49 | PN ---
Progress Note - Progress Note Date of Service: 05/30/19 SOAP: Subjective: Pt seen and examined. Continued pain. workup including labs and CT reviewed. Objective: Temp Pulse Resp BP Pulse Ox 98.8 F 46 16 93/54 100 05/30/19 10:59 05/30/19 10:59 05/30/19 10:59 05/30/19 10:59 05/30/19 10:59 Intake & Output 05/29/19 05/30/19 05/30/19 22:59 06:59 14:59 Intake Total 1390 Output Total 500 200 200 Balance -500 1190 -200 Weight 144 lb 143 lb 15.989 oz a and o x3, mild distress lngs clear abdo: soft/ distended/ tender at epigastrum ext wnl Assessment: persistent abdo pain ; DDx internal hernia Plan: Diagnostic laparoscopy- R/B/A discussed pre op abx munoz in OR
[2019-05-30] MEDS ORDERED: ceFAZolin 2 GM in NS PREMIX(*) 2 GM/100 ML BAG IVPB ONE (11:54)
[2019-05-30] MEDS ORDERED: Midazolam* 1 MG/ML 5 ML VIAL (5 MG) ONE (12:11)
[2019-05-30] MEDS ORDERED: Propofol* 10 MG/ML 20 ML BTL ONE (12:18)
[2019-05-30] MEDS ORDERED: Rocuronium* 10 MG/ML VIAL ONE (12:19)
[2019-05-30] MEDS ORDERED: fentaNYL* 50 MCG/ML 2 ML VIAL (100 MCG VIAL) ONE ×2 (12:19→13:47)
[2019-05-30] MEDS ORDERED: Ketorolac INJ* 30 MG/ML 1 ML VIAL ONE (13:10)
[2019-05-30] MEDS ORDERED: Ondansetron INJ* 2 MG/ML VIAL ONE ×2 (13:10→14:03)
[2019-05-30] MEDS ORDERED: Glycopyrrolate IV* 0.2 MG/ML 1 ML VIAL ONE (13:15)
--- NOTE | 2019-05-30 13:20 | OP ---
Operative Report - Blank - Operative Report Date of Operation: 05/30/19 Note: Brief Operative Note Preop Dx: Internal hernia Postop Dx: same Procedure: diagnostic laparoscopy, lysis of adhesions Anesthesia: GET Surgeon: Michelle Signs Sales Representative: TEDDY Bateman Fluids: 800 ml RL EBL: none Specimen: none Drains: none Findings: dictated
[2019-05-30] MEDS ORDERED: Sugammadex * 200 MG/2 ML VIAL IV PUSH ONE (13:26)
[2019-05-30] MEDS ORDERED: HYDROmorphone INJ1* 1 MG/ML SYRINGE IV PRN (13:47)
[2019-05-30] MEDS ORDERED: DiMENhydriNATE IV* 50 MG/ML VIAL IV PUSH PRN (13:47)
[2019-05-30] MEDS ORDERED: Naloxone* 0.4 MG/ML 1 ML VIAL IV PRN (13:47)
[2019-05-30] MEDS ORDERED: Ondansetron INJ* 2 MG/ML VIAL IV PRN (13:47)
[2019-05-30] MEDS: fentaNYL* 50 MCG/ML 2 ML VIAL (100 MCG VIAL) IV PRN ×2 (13:48→13:54)
[2019-05-30 16:49] VITALS: BP 106/54
--- NOTE | 2019-05-30 23:34 | OP ---
CC: [facility]; Primary Care Doctor * DATE OF OPERATION: 05/30/19 - ROOM #332 DATE OF : 88 SURGEON: Joey Martinez MD. OWNER SPA DIRECTOR: TEDDY Cuellar. ANESTHESIOLOGIST: Dr. Harris. ANESTHESIA: General anesthesia. PRE-OP DIAGNOSIS: Abdominal pain. POST-OP DIAGNOSIS: Internal hernia and volvulus. OPERATIVE PROCEDURE: Diagnostic laparoscopy and lysis of adhesions. FLUIDS: 800 cc of crystalloid fluids given. BLOOD LOSS: Minimal. SPECIMEN: None. DRAINS: None. DESCRIPTION OF PROCEDURE: The patient was identified in the preoperative area. She was marked, brought to the operating room and placed on the operating table in supine position. Preoperative antibiotics given. Sequential devices were placed to bilateral lower extremities and general anesthesia was induced. Folds of umbilicus were elevated anteriorly and the Veress needle was inserted into the abdominal cavity, which was then allowed to insufflate to a pressure of 15 mmHg. The patient tolerated the insufflation well. A 5-mm optical trocar was then placed in the right upper quadrant. We reviewed the abdomen. Veress needle was removed. It showed no evidence of injury to adjacent organs. We placed a 5-mm trocar at the periumbilical site and a 5 mm at the left upper quadrant. Review of the abdomen showed scant free fluid in the pelvis. This was serous, non- chylous. Small bowel appeared intact. It was pink without lesions as was the liver appeared normal. Attention was turned towards the ileocecal valve, which was identified and the small bowel run retrograde removing bile from a small hallow at the mid abdomen and releasing the jejunojejunostomy. We then ran the Colette limb proximally and orientation was appropriate right up to the stomach pouch appeared intact. We then ran the biliopancreatic limb retrograde and that was also normal. It appeared that the portion of the anastomosis and biliopancreatic limb were in a small hallow where the jejuno-jejunostomy adhered to the mesentry of the Colette limb. Sharp dissection was carried out freeing up the adhesions until this could unfolded. Once this was unfolded, I did not feel it was reasonable to place any stitches. We also reviewed the suture line at the JJ and this was closed. We then turned our attention to the retro Colette side. This was a large opening to the area of the colon and I thought it was not necessary to close. Next, we let the abdomen to collapse. Trocars were removed under direct vision , and all skin incisions were reapproximated with 4-0 Monocryl subcuticular sutures followed by Steri-Strips and sterile dressing. The patient tolerated the procedure well, was transferred to PACU, onto the short-stay unit. [id number]/[facility] #: [id number] MTDD
--- NOTE | 2019-06-07 11:53 | DS ---
AMENDED REPORT NOW INCLUDES DATES OF ADMISSION AND DISCHARGE CC: [facility] * DISCHARGE SUMMARY: DATE OF ADMISSION: 05/29/19 DATE OF DISCHARGE: 05/30/19 HISTORY: Ms. Tee is a 28-year-old female status post Colette-en-Y gastric bypass, who presented to our outpatient offices with complaints of abdominal pain and bloating. She was directly admitted, underwent a CAT scan as well as labs and was observed overnight. By hospital stay #2, the patient continued to have abdominal pain. I recommended laparoscopy. The patient was taken to the OR for a diagnostic laparoscopy, underwent lysis of adhesions that caused small bowel hernia and volvulus. In the postoperative period, the patient was transferred to the PACU and on to the short-stay surgical unit. She improved significantly, was started on a bariatric diet. By postoperative day one, the patient was doing well. She was discharged home in stable condition for planned close followup in our offices. The patient was sent home on her regular medications. [id number]/[facility] #: [id number] LUIS MANUEL
== END 2019-05-30 18:52 | disposition home or self-care (01) ==
LOC: SSU 16:38
PROVIDERS: ADMIT Surgery; ATTEND Surgery
PROC: 0DNA4ZZ Release Jejunum, Percutaneous Endoscopic Approach (ICD-10-PCS; principal; 2019-05-30 10:15)
DX: K46.9 Unspecified abdominal hernia without obstruction or gangrene (principal); K66.0 Peritoneal adhesions (postprocedural) (postinfection); Z98.84 Bariatric surgery status
CPT/HCPCS: 36415; 44180; 74177; 80053; 81003; 81015; 83690; 84702; 85025; 87086; 87641; 96361; 96365; 96375; 96376; G0378; J0690; J1170; J1885; J2250; J2270; J2405; J2704; J3010; Q9967

== ENCOUNTER 2019-09-22 09:06 | Emergency (ER) | payer BC ==
[2019-09-22 09:12] VITALS: BP 119/74
--- NOTE | 2019-09-22 09:20 | UC ---
Respiratory Complaint HPI - HPI Summary HPI Summary: Patient is a 29-year-old female , who present today to the urgent care with upper respiratory symptoms for past 2 days. Onset on night. 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 Reports dry cough, congestion and sore throat. Had fevers around 100F. No significant body aches Denies any chest pain or shortness of breath . Denies any abdominal pain , nausea or vomiting , diarrhea or constipation. - History of Current Complaint Chief Complaint: UCRespiratory Stated Complaint: FLU LIKE SYMPTOMS Time Seen by Provider: 09/22/19 09:10 Hx Obtained From: Patient Hx Last Menstrual Period: 08/29/19 Pain Intensity: 2 - Allergies/Home Medications Allergies/Adverse Reactions: Allergies Allergy/AdvReac Type Severity Reaction Status Date / Time clindamycin Allergy Rash Verified 09/22/19 09:13 prochlorperazine Allergy See Comment Verified 09/22/19 09:13 [From Compazine] Sulfa (Sulfonamide Allergy Anaphylatic Verified 09/22/19 09:13 Antibiotics) Shock Home Medications: Home Medications NK [No Home Medications Reported] 09/22/19 [History Confirmed 09/22/19] PMH/Surg Hx/FS Hx/Imm Hx - Additional Past Medical History Additional PMH: Past Medical History : Tachycardia, on medications, asthma Past Surgical History: APPENDECTOMY, 08/2014, Right ULNAR COLLATERAL LIGAMENT Sx 07/2015 gastric bypass revision Family History : non contributory Social History : No alcohol, light every day smoker, no drug use. 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 Previously Healthy: Yes Other History Of: Negative For: HIV, Hepatitis B, Hepatitis C, Anticoagulant Therapy - Surgical History Surgical History: Yes Surgery Procedure, Year, and Place: APPENDECTOMY, 08/2014, Right ULNAR COLLATERAL LIGAMENT Sx 07/2015 gastric bypass revision - Family History Known Family History: Positive: Cardiac Disease, Hypertension, Other - Migraines , Non-Contributory - Social History Alcohol Use: None Substance Use Type: None Substance Use Comment - Amount & Last Used: PT denies use Smoking Status (MU): Light Every Day Tobacco Smoker Type: Cigarettes Amount Used/How Often: 1ppd Length of Time of Smoking/Using Tobacco: at age 13 Have You Smoked in the Last Year: Yes When Did the Patient Quit Smoking/Using Tobacco: Quitting currently Household Exposure Type: Cigarettes - Immunization History Most Recent Influenza Vaccination: 07/2015 Most Recent Tetanus Shot: 05/2014 Most Recent Pneumonia Vaccination: none Review of Systems All Other Systems Reviewed And Are Negative: Yes Constitutional: Positive: Fever, Chills Skin: Positive: Negative Eyes: Positive: Negative ENT: Positive: Sore Throat Respiratory: Positive: Cough - Dry nonproductive Cardiovascular: Positive: Negative Gastrointestinal: Positive: Negative Genitourinary: Positive: Negative Motor: Positive: Negative Neurovascular: Positive: Negative Musculoskeletal: Positive: Negative Neurological: Positive: Negative Psychological: Positive: Negative Is Patient Immunocompromised?: No Physical Exam - Summary Physical Exam Summary: Physical Exam: Const: Appears well. No signs of apparent distress present. Alert and oriented x 3. Musculo: Walks with a normal gait. Head/Face: Atraumatic, normocephalic on inspection. Eyes: EOMI and PERRLA in both eyes. Conjunctivae clear. No discharge noted ENT: Hearing normal, TM normal appearing bilaterally, non bulging , non erythematous . No tenderness on palpation / manipulation of Tragus. No mastoid tenderness. No tenderness to palpation on maxillary and frontal sinus. There is pharyngeal erythema with bilateral exudates . Uvula is midline. There is tender anterior cervical lymphadenopathy noted. Respiratory: Respirations are unlabored. Lungs clear to auscultation bilaterally, no wheezing , rhonchi or rales noted . CVS: Regular rate and Rhythm, S1S2 normal , no murmurs identified. Extremities: Peripheral circulation is grossly normal. Pulses 2+ Abdomen : Soft non tender , nondistended , Bowel sounds present . No guarding , rebound tenderness or rigidity noted. Skin: No lesions or rash located on the upper extremities or on the lower extremities. Neuro: Cranial nerves II to XII intact, motor and sensory intact. DTR Intact bilaterally. Mood is normal. Affect is normal. Triage Information Reviewed: Yes Vital Signs: Initial Vital Signs Temp 98.6 F 09/22/19 09:10 Pulse 110 09/22/19 09:10 Resp 16 09/22/19 09:10 BP 119/74 09/22/19 09:10 Pulse Ox 100 09/22/19 09:10 Vital Signs Reviewed: Yes Respiratory Course/Dx - Course Course Of Treatment: Rapid strep test: neg Flu:neg Likely viral syndrome, discussed supportive management - Differential Dx/Diagnosis Provider Diagnosis: Viral upper respiratory infection Discharge ED - Sign-Out/Discharge Documenting (check all that apply): Patient Departure All imaging exams completed and their final reports reviewed: No Studies - Discharge Plan Condition: Stable Disposition: HOME Patient Education Materials: Viral Syndrome (ED) Forms: *Work Release Referrals: No Primary Care Phys,NOPCP [Primary Care Provider] - If Needed Additional Instructions: flu test and strep test is negative Likely a viral syndrome that'll take its own course Supportive treatment with ibuprofen as needed for fever, maintain hydration. Salt water gargles will be helpful Follow up with your primary care doctor as needed . Return to Urgent care / ER if symptoms get worse. - Billing Disposition and Condition Condition: STABLE Disposition: Home
[2019-09-22 09:33] LABS: Influenza A Molecular NEGATIVE (Negative); Influenza B Molecular NEGATIVE (Negative)
== END 2019-09-22 09:45 | disposition home or self-care (01) ==
LOC: UCEAST 09:06
DX: J06.9 Acute upper respiratory infection, unspecified (principal); J45.909 Unspecified asthma, uncomplicated; F17.210 Nicotine dependence, cigarettes, uncomplicated; Z88.1 Allergy status to other antibiotic agents; Z88.2 Allergy status to sulfonamides; Z88.8 Allergy status to other drugs, medicaments and biological substances
CPT/HCPCS: 87651; 99211; G0463

== ENCOUNTER 2019-10-15 00:35 | Inpatient (IN) | payer BC ==
[2019-10-15] MEDS ORDERED: NS 0.9% 1000 ML** 2,000 ML IV ONE (00:44)
[2019-10-15] MEDS ORDERED: Ondansetron INJ* 2 MG/ML VIAL IV ONE (00:44)
[2019-10-15 01:05] LABS: ABS Basophils 0.1 10^3/ul (0-0.2); ABS Eosinophils 0.1 10^3/ul (0-0.6); ABS Lymphocytes 1.8 10^3/ul (1.0-4.8); ABS Monocytes 0.7 10^3/ul (0-0.8); ABS Neutrophils 6.5 10^3/ul (1.5-7.7); Eosinophil % 0.6 %; Hematocrit 41 % (35-47); Hemoglobin 13.5 g/dL (12.0-16.0); Lymphocyte % 20.1 %; Mean Corpuscular HGB Conc 33 g/dL (31-36); Mean Corpuscular Hemoglobin 28 pg (27-31); Mean Corpuscular Volume 85 fL (80-97); Mean Platelet Volume 8.6 fL (7.4-10.4); Platelet Count 275 10^3/uL (150-450); Red Blood Count 4.87 10^6 /uL (3.70-4.87); Red Cell Distribution Width 14 % (10-15); White Blood Count 9.2 10^3/uL (3.5-10.8)
--- NOTE | 2019-10-15 01:16 | ED ---
Abdominal Pain/Female - HPI Summary HPI Summary: 29 year old F presenting to [facility] complains of intermittent abdominal pain and nausea x2 weeks, abdominal distension since 10/13, liquid diarrhea starting AM, decreased urine output since 10/13. Is not passing gas. No vomiting. The patient rates the pain 7/10 currently in severity. Symptoms aggravated by nothing. Symptoms alleviated by nothing. Hx bariatric surgery in September 2018 after which she needed to have follow up surgery for SBO. Today's symptoms are similar to when she had SBO. Has an appointment with surgery on 10/15. States she tried to wait for her appointment but was unable to sleep this evening d/t the pain. - History of Current Complaint Chief Complaint: EDAbdPain Stated Complaint: ABD PAIN PER PT Time Seen by Provider: 10/15/19 01:07 Hx Obtained From: Patient Onset/Duration: Lasting Days, Lasting Weeks - 2, Still Present Timing: Intermittent Episode Lasting Severity Currently: Moderate Pain Intensity: 7 Pain Scale Used: 0-10 Numeric Location: Diffuse Radiates: No Aggravating Factor(s): Nothing Alleviating Factor(s): Nothing Allergies/Adverse Reactions: Allergies Allergy/AdvReac Type Severity Reaction Status Date / Time clindamycin Allergy Rash Verified 10/15/19 00:40 prochlorperazine Allergy See Comment Verified 10/15/19 00:40 [From Compazine] Sulfa (Sulfonamide Allergy Anaphylatic Verified 10/15/19 00:40 Antibiotics) Shock PMH/Surg Hx/FS Hx/Imm Hx Endocrine/Hematology History: Reports: Hx Anemia - IRON DEFICIENCY Denies: Hx Anticoagulant Therapy, Hx Diabetes, Hx Thyroid Disease Cardiovascular History: Reports: Other Cardiovascular Problems/Disorders - heart murmur Denies: Hx Congestive Heart Failure, Hx Hypertension - ON MEDS FOR TACHYCARDIA, Hx Pacemaker/ICD Respiratory History: Reports: Hx Asthma, Hx Sleep Apnea Denies: Hx Chronic Obstructive Pulmonary Disease (COPD), Hx Lung Cancer, Hx Pneumonia, Hx Pulmonary Embolism GI History: Reports: Hx Gastroesophageal Reflux Disease - PER PATIENT PRN MEDICATION FOR, Hx Irritable Bowel Denies: Hx Ulcer History: Reports: Hx Kidney Infection, Hx Kidney Stones - LAST STONE 1 YR AGO , Other Problems/Disorders - kidney stones Denies: Hx Renal Disease Musculoskeletal History: Reports: Hx Orthopedic Injury - right thumb ligament tear and reconstruction, Hx Tendonitis - KNEES, Other Musculoskeletal History - RIGHT THUMB STRAIN/SPRAIN Sensory History: Reports: Hx Contacts or Glasses Denies: Hx Hearing Aid Opthamlomology History: Reports: Hx Contacts or Glasses Neurological History: Reports: Hx Migraine, Hx Seizures - pseudo seizures and "seizures when I was younger--18." Denies: Hx Dementia, Hx Transient Ischemic Attacks (TIA) Psychiatric History: Reports: Hx Anxiety, Hx Eating Disorder, Hx Depression, Hx Bipolar Disorder, Hx of Violent Episodes Against Others Denies: Hx Panic Disorder, Hx Schizophrenia - Surgical History Surgery Procedure, Year, and Place: APPENDECTOMY, 08/2014, Right ULNAR COLLATERAL LIGAMENT Sx 07/2015 gastric bypass revision Hx Anesthesia Reactions: Yes - TOOK A LONG TIME TO WAKE UP AFTER APPY, nausea - Immunization History Date of Tetanus Vaccine: utd Date of Influenza Vaccine: unk Infectious Disease History: No Infectious Disease History: Reports: Hx Clostridium Difficile - hx c-diff - not active, Hx of Known/Suspected MRSA - mutiple places 2014, following tatoo on L shoulder Denies: Hx Hepatitis, Hx Human Immunodeficiency Virus (HIV), Hx Shingles, Hx Tuberculosis, Hx Known/Suspected VRE, Hx Known/Suspected VRSA, History Other Infectious Disease, Traveled Outside the [place] in Last 30 Days - Family History Known Family History: Positive: Cardiac Disease, Hypertension, Other - Migraines - Social History Alcohol Use: None Hx Substance Use: No Substance Use Type: Reports: None Substance Use Comment - Amount & Last Used: PT denies use Hx Tobacco Use: Yes Smoking Status (MU): Light Every Day Tobacco Smoker Type: Cigarettes Amount Used/How Often: 1ppd Length of Time of Smoking/Using Tobacco: at age 13 Have You Smoked in the Last Year: Yes Review of Systems Positive: Abdominal Pain, Diarrhea, Nausea, Other - abdominal distension, is not passing gas. Negative: Vomiting Genitourinary: Other - decreased urine output All Other Systems Reviewed And Are Negative: Yes Physical Exam - Summary Physical Exam Summary: Appearance: Well-appearing, Well-nourished, lying in bed comfortably. The patient's vitals signs are notable for tachycardia. Skin: Warm, dry, no obvious rash Eyes: sclera anicteric, no conjunctival pallor ENT: mucous membranes are somewhat dry, pharynx appears normal Neck: Supple, nontender Respiratory: Clear to auscultation, no signs of respiratory distress Cardiovascular: Normal S1, S2. No murmurs. Normal distal pulses in tibial and radial bilaterally. Abdomen: There is generalized abdominal tenderness. The abdomen is moderately distended. There are normal active bowel sounds. Musculoskeletal: Normal, Strength/ROM Intact Neurological: A&Ox3, awake and alert, mentation is normal, speech is fluent and appropriate Psychiatric: affect is normal, does not appear anxious or depressed Triage Information Reviewed: Yes Vital Signs On Initial Exam: Initial Vitals Temp Pulse Resp BP Pulse Ox 97.7 F 134 15 141/85 100 10/15/19 00:38 10/15/19 00:38 10/15/19 00:38 10/15/19 00:38 10/15/19 00:38 Vital Signs Reviewed: Yes Procedures - Sedation Patient Received Moderate/Deep Sedation with Procedure: No Diagnostics - Vital Signs Vital Signs Temp Pulse Resp BP Pulse Ox 10/15/19 00:38 97.7 F 134 15 141/85 100 - Laboratory Lab Results: Lab Results 10/15/19 Range/Units 00:58 WBC 9.2 (3.5-10.8) 10^3/uL RBC 4.87 (3.70-4.87) 10^6 /uL Hgb 13.5 (12.0-16.0) g/dL Hct 41 (35-47) % MCV 85 (80-97) fL MCH 28 (27-31) pg MCHC 33 (31-36) g/dL RDW 14 (10-15) % Plt Count 275 (150-450) 10^3/uL MPV 8.6 (7.4-10.4) fL Neut % (Auto) 71.2 % Lymph % (Auto) 20.1 % [place] % (Auto) 7.5 % Eos % (Auto) 0.6 % Baso % (Auto) 0.6 % Absolute Neuts (auto) 6.5 (1.5-7.7) 10^3/ul Absolute Lymphs (auto) 1.8 (1.0-4.8) 10^3/ul Absolute Monos (auto) 0.7 (0-0.8) 10^3/ul Absolute Eos (auto) 0.1 (0-0.6) 10^3/ul Absolute Basos (auto) 0.1 (0-0.2) 10^3/ul Absolute Nucleated RBC 0.0 10^3/ul Nucleated RBC % 0.0 Result Diagrams: 10/15/19 00:58 10/15/19 00:59 Lab Statement: Any lab studies that have been ordered have been reviewed, and results considered in the medical decision making process. - CT ABD/PEL CT Interpretation Completed By: Radiologist Summary of CT Findings: 1. Status post gastric bypass with mild fluid and some oral contrast in the bypassed stomach which may be seen with some degree of obstruction at or beyond the [place]. There is borderline distention of small bowel segments with a few air fluid levels, slightly increased since 05/29/2019 and may reflect a low-grade obstruction or ileus. 2. Relatively low SMA/aortic angle with narrowing of the left renal vein and proximal distention. No significant collateralization is noted and is nonspecific. 3. Otherwise negative CT abdomen/pelvis. ED physician has reviewed this report. Re-Evaluation - Re-Evaluation First Eval Re-Evaluation Time: 03:37 Comment: informed of CT Abd/Pel findings Second Eval Re-Evaluation Time: 04:25 Comment: Dr. Plaza will admit patient Abdominal Pain Fem Course/Dx - Course Course Of Treatment: 29 year old F complains of intermittent abdominal pain and nausea x2 weeks, abdominal distension since 10/13, liquid diarrhea starting 12/ 15 AM, decreased urine output since 10/13. Hx bariatric surgery in September 2018 after which she needed to have follow up surgery for SBO. Today's symptoms are similar to when she had SBO. Upon exam, the patient's vitals signs are notable for tachycardia. Mucous membranes are somewhat dry. There is generalized abdominal tenderness. The abdomen is moderately distended. There are normal active bowel sounds. Bloodwork results with no significant abnormalities except for glucose 103, calcium 8.5, total protein 6.2. Urinalysis results with no significant abnormalities. CT ABD/PEL shows, per radiologist: 1. Status post gastric bypass with mild fluid and some oral contrast in the bypassed stomach which may be seen with some degree of obstruction at or beyond the [place]. There is borderline distention of small bowel segments with a few air fluid levels, slightly increased since 05/29/2019 and may reflect a low-grade obstruction or ileus. 2. Relatively low SMA/aortic angle with narrowing of the left renal vein and proximal distention. No significant collateralization is noted and is nonspecific. 3. Otherwise negative CT abdomen/pelvis. In the ED course, the patient was given morphine 4 mg IV, Zofran 8 mg IV, normal saline fluids 2 L IV, Reglan 10 mg IV, Zofran [address] Plaza, surgery, agrees to come to the ED to see the patient. He agrees to admit patient 04:25. The patient will be admitted to surgery. - Diagnoses Provider Diagnoses: Small bowel obstruction - Provider Notifications Discussed Care Of Patient With: Rolando Plaza Time Discussed With Above Provider: 03:34 Instructed by Provider To: MD Will See In ED Discharge ED - Sign-Out/Discharge Documenting (check all that apply): Patient Departure - Discharge Plan Condition: Good Disposition: ADMITTED TO [facility] - Billing Disposition and Condition Condition: GOOD Disposition: Admitted to [facility] - Attestation Statements Document Initiated by [facility]: Yes Documenting Scribe: Eboni Tanner Provider For Whom Genesis is Documenting (Include Credential): Braden Gonzáles MD Scribdanay Attestation: Eboni Saavedra, scribed for Braden Gonzáles MD on 10/15/19 at 0546. Scribe Documentation Reviewed: Yes Provider Attestation: The documentation as recorded by the Eboni merida accurately reflects the service I personally performed and the decisions made by me, Braden Gonzáles MD Status of Scribdanay Document: Viewed
[2019-10-15 01:23] LABS: ALT 13 U/L (7-52); AST 13 U/L (13-39); Albumin 3.8 g/dL (3.2-5.2); Albumin/Globulin Ratio 1.6 (1-3); Alkaline Phosphatase 55 U/L (34-104); Anion Gap 6 mmol/L (2-11); BUN/Creatinine Ratio 19.2 (8-20); Blood Urea Nitrogen 14 mg/dL (6-24); CO2 Carbon Dioxide 23 mmol/L (22-32); Calcium 8.5 mg/dL (8.6-10.3); Chloride 110 mmol/L (101-111); EGFR African American 113.3 (>60); EGFR Non-African American 93.6 (>60); Globulin 2.4 g/dL (2-4); Glucose 103 mg/dL (70-100); Potassium 4.1 mmol/L (3.5-5.0); Sodium 139 mmol/L (135-145); Total Protein 6.2 g/dL (6.4-8.9)
[2019-10-15 01:29] LABS: HCG Pregnancy < 0.60 mIU/mL
[2019-10-15] MEDS ORDERED: Morphine 4 MG/ML VIAL (1 ml) 4 MG/ML VIAL IV ONE (01:31)
[2019-10-15] MEDS: Morphine 4 MG/ML VIAL (1 ml) 4 MG/ML VIAL IV PRN ×2 (01:34→03:13)
[2019-10-15 02:14] LABS: Urine Appearance Cloudy; Urine Bilirubin Negative (Negative); Urine Blood Negative (Negative); Urine Color Yellow; Urine Glucose Negative (Negative); Urine Ketones Negative (Negative); Urine Nitrite Negative (Negative); Urine Protein Negative (Negative); Urine Specific Gravity 1.026 (1.010-1.030); Urine Urobilinogen Negative (Negative)
[2019-10-15] MEDS ORDERED: Iohexol 300* (CONTRAST) 10 ML SDV IV ONE (02:37)
[2019-10-15] MEDS ORDERED: Metoclopramide IV* 5 MG/ML 2 ML VIAL IV SLOW PU ONE (04:21)
--- NOTE | 2019-10-15 04:58 | HP ---
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 She has 2 week h/o LUQ abd pain, intermittently worse with eating, not with liquids. She works at [employer] [facility] [place] and had turkey sandwich and pickle on Tuesday night. Tuesday was uneventful, had broccoli and pork loin for dinner. She slept normally Tuesday night and awoke Tuesday and had watery, brown diarrhea. She ate toast but nothing more. Her daughter needed medical care and she was busy taking care of her. At 5 pm she ate pepperoni pizza and felt ill after. She had diet soda. She felt flushed and weak like she had "low blood surgar" and ended up on the couch. She had multiple episodes of diarrhea. She had severe pain around 8pm and associated dry heaving with more diffuse pain following. She ended up coming to the [employer] [place] ED and was found to have normal labs. CT scan showed findings of partial SBO and she has requires morphine to control her pain. She states symptoms are similar to what she experienced last April with exception of the diarrhea, which is different. PMH: tachycardia, anxiety/depression, IBS (colonoscopy 2010), gastritis, kidney stones. 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 CVS: benign tachycardia and seen by Shad, took metoprolol but was d/c'd by him after LRYGB. Resp: denies cough/SOB. GI: as above; had colonoscopy in 2010 for hematochezia and reports was treated for some time with Asacol and Prednisone--ultimately not found to have IBD. G/U: denies hematuria/dysuria, Skin: no hairloss/rash. Musc: denies weakness/joint pain. Heme: no easy bruising/bleeding/blood clots PE: Vital Signs Temp 97.7 F 10/15/19 00:38 Pulse 111 10/15/19 04:37 Resp 16 10/15/19 03:13 BP 121/66 10/15/19 04:37 Pulse Ox 98 10/15/19 04:37 Gen: NAD HEENT: NCAT, EOMI, anicteric sclera, dentition intact Neck: supple; no PEDRITO Lungs: CTA B Heart: reg s1s2; tachy; no murmurs Abd: healed lap scars; distended; +BS; soft with tenderness throughout, upper> lower, LUQ>RUQ. Ext: warm Intake & Output 10/14/19 10/14/19 10/15/19 06:59 18:59 06:59 Intake Total 1999 Balance 1999 Weight 130 lb Intake: IV Fluids 1999 Laboratory Results - last 24 hr 10/15/19 10/15/19 10/15/19 00:58 00:59 02:05 WBC 9.2 RBC 4.87 Hgb 13.5 Hct 41 MCV 85 MCH 28 MCHC 33 RDW 14 Plt Count 275 MPV 8.6 Neut % (Auto) 71.2 Lymph % (Auto) 20.1 [place] % (Auto) 7.5 Eos % (Auto) 0.6 Baso % (Auto) 0.6 Absolute Neuts (auto) 6.5 Absolute Lymphs (auto) 1.8 Absolute Monos (auto) 0.7 Absolute Eos (auto) 0.1 Absolute Basos (auto) 0.1 Absolute Nucleated RBC 0.0 Nucleated RBC % 0.0 Sodium 139 Potassium 4.1 Chloride 110 Carbon Dioxide 23 Anion Gap 6 BUN 14 Creatinine 0.73 Est GFR ( Amer) 113.3 Est GFR (Non-Af Amer) 93.6 BUN/Creatinine Ratio 19.2 Glucose 103 H Calcium 8.5 L Total Bilirubin 0.20 AST 13 ALT 13 Alkaline Phosphatase 55 Total Protein 6.2 L Albumin 3.8 Globulin 2.4 Albumin/Globulin Ratio 1.6 Lipase 31 Beta HCG, Quant < 0.60 Urine Color Yellow Urine Appearance Cloudy Urine pH 5.0 Ur Specific [place] 1.026 Urine Protein Negative Urine Ketones Negative Urine Blood Negative Urine Nitrate Negative Urine Bilirubin Negative Urine Urobilinogen Negative Ur Leukocyte Esterase Negative Urine Glucose Negative CT images reviewed. There is contrast in the bypassed stomach with distension of SB. Imp: 29 yo F s/p LRYGB 2018. s/p dx lap/BAUDILIO for internal hernia/volvulus. She presents with similar symptoms. Plan: Admit, NPO, IVF. OR later today for dx lap. D/w pt who understands and agrees.
[2019-10-15] MEDS ORDERED: Lactated Ringers 1000 ML Bag* 1,000 ML IV SCH ×2 (05:00→09:00)
[2019-10-15] MEDS: Morphine INJ* 4 MG/ML 1 ML SYRINGE (NEW SYRINGE VERSION) IV PRN ×2 (07:40→09:05)
[2019-10-15] MEDS ORDERED: Lactated Ringers 1000 ML Bag* 1,000 ML IV ONE (08:00)
[2019-10-15] MEDS ORDERED: Buffered Lidocaine 1% SYRIN* 1 ML/SYRINGE INTRADERM ONE (08:15)
[2019-10-15] MEDS ORDERED: Piperacillin/Tazobac ADVAN(*) 3.375 GM in NS 0.9% 100 ML* 100 ML IVPB ONE (08:30)
--- NOTE | 2019-10-15 08:38 | PN ---
Progress Note - Progress Note Date of Service: 10/15/19 SOAP: Subjective: Pt seen and examined. fever and chills. abdo pain L side improved with morphine Objective: Temp Pulse Resp BP Pulse Ox 99.6 F 121 20 106/60 100 10/15/19 08:33 10/15/19 07:31 10/15/19 07:49 10/15/19 07:31 10/15/19 07:20 abdo: distended/ tender at L w/o rebound hyperactive BS CT reviewed- contrast mostly in BP limb Assessment: abdo pain 1 year s/p rygb, fever, diarrhea, abdo pain Plan: enteritis vs internal hernia, vs blockage at JJ abx paoin control npo follow closely with serial abdo exams
[2019-10-15] MEDS ORDERED: Zosyn per Pharmacy* NOTE FOLLOW UP SCH (09:00)
[2019-10-15] MEDS: NS 0.9% 1000 ML** 1,000 ML IV SCH ×2 (09:23→21:21)
[2019-10-15 09:24] LABS: ABS Lymphocytes 0.6 10^3/ul (1.0-4.8); ABS Monocytes 0.2 10^3/ul (0-0.8); ABS Neutrophils 4.8 10^3/ul (1.5-7.7); Eosinophil % 0.4 %; Hematocrit 36 % (35-47); Lymphocyte % 10.1 %; Mean Corpuscular HGB Conc 33 g/dL (31-36); Mean Corpuscular Hemoglobin 27 pg (27-31); Mean Corpuscular Volume 82 fL (80-97); Mean Platelet Volume 8.6 fL (7.4-10.4); Platelet Count 218 10^3/uL (150-450); Red Blood Count 4.39 10^6 /uL (3.70-4.87); Red Cell Distribution Width 14 % (10-15); White Blood Count 5.7 10^3/uL (3.5-10.8)
[2019-10-15] MEDS: Ondansetron INJ* 2 MG/ML VIAL IV PRN (09:55)
[2019-10-15] MEDS ORDERED: Metoclopramide IV* 5 MG/ML 2 ML VIAL ONE (10:54)
[2019-10-15] MEDS ORDERED: Metoclopramide IV* 5 MG/ML 2 ML VIAL IV ONE (11:00)
[2019-10-15] MEDS: ZOSYN 3.375 GM Q8H per EXTENDED INFUSION IVPB SCH ×4 (14:03→21:23)
[2019-10-15] MEDS: SUMAtriptan SQ* 6 MG/0.5 ML VIAL SUBCUT ONE ×2 (14:15→14:17)
--- NOTE | 2019-10-15 17:00 | PN ---
Progress Note - Progress Note Date of Service: 10/15/19 SOAP: Subjective: Pt passing flatus. COntinued abdo pain- left sided Objective: Temp Pulse Resp BP Pulse Ox 98.6 F 104 16 106/53 100 10/15/19 15:26 10/15/19 15:26 10/15/19 15:26 10/15/19 15:26 10/15/19 15:26 Tm 101.3 a and o x3 abdo: less distended/ tender at mid-abdomen, upper abdo and on left. no rebound labs noted Assessment: Persistent abdo pain- r/o internal hernia Plan: OR for diagnostic laparoscopy. R/B/A discussed and pt wishes to proceed. abx on board IVF NPO Toney in OR
[2019-10-15] MEDS ORDERED: Bupivacaine 0.25% EPI 200,000* 30 ML SDV ONE (17:28)
[2019-10-15] MEDS ORDERED: Scopolamine 1.5 mg* PATCH ONE (17:42)
[2019-10-15] MEDS ORDERED: DiMENhydriNATE IV* 50 MG/ML VIAL IV PUSH PRN (17:46)
[2019-10-15] MEDS ORDERED: Naloxone* 0.4 MG/ML 1 ML VIAL IV PRN (17:46)
[2019-10-15] MEDS ORDERED: Propofol* 10 MG/ML 20 ML BTL ONE (17:49)
[2019-10-15] MEDS ORDERED: Rocuronium* 10 MG/ML VIAL ONE (17:50)
[2019-10-15] MEDS ORDERED: Lidocaine 2% PF * 5 ML VIAL ONE (17:50)
[2019-10-15] MEDS ORDERED: fentaNYL* 50 MCG/ML 2 ML VIAL (100 MCG VIAL) ONE ×3 (18:21→20:17)
[2019-10-15] MEDS ORDERED: Glycopyrrolate IV* 0.2 MG/ML 1 ML VIAL ONE (19:20)
[2019-10-15] MEDS ORDERED: Neostigmine Methylsulfate* 1 MG/ML 10 ML VIAL (1 mg/ml) ONE (19:22)
--- NOTE | 2019-10-15 19:42 | OP ---
Operative Report - Blank - Operative Report Date of Operation: 10/15/19 Note: Pre-OP Diagnoses: abdominal pain Post-op Diagnosis: same Procedure: Diagnostic laparoscopy Surgeon: Michelle Pattont: Von Anethesia: KARIME EBL: minimal IVF: minimal Specimen: none Drains: none Findings noraml anatomy scant free fluid- nonchylous Complications: None
[2019-10-15] MEDS ORDERED: HYDROmorphone INJ1* 1 MG/ML SYRINGE ONE (19:51)
[2019-10-15] MEDS: fentaNYL* 50 MCG/ML 2 ML VIAL (100 MCG VIAL) IV PRN ×3 (19:59→20:17)
[2019-10-15] MEDS: Metoclopramide IV* 5 MG/ML 2 ML VIAL IV SLOW PU PRN (21:42)
[2019-10-15] MEDS: HYDROmorphone INJ* 0.5 MG/0.5 ML SYRINGE IV SLOW PU PRN ×2 (22:14→23:21)
[2019-10-15 23:40] LABS: Urine Appearance Cloudy; Urine Bilirubin Negative (Negative); Urine Blood Negative (Negative); Urine Color Straw; Urine Glucose Negative (Negative); Urine Ketones Negative (Negative); Urine Nitrite Negative (Negative); Urine Protein Negative (Negative); Urine Specific Gravity 1.008 (1.010-1.030); Urine Urobilinogen Negative (Negative)
[2019-10-16] MEDS: HYDROmorphone INJ* 0.5 MG/0.5 ML SYRINGE IV SLOW PU PRN ×5 (01:13→08:14)
--- NOTE | 2019-10-16 03:05 | OP ---
CC: [facility]; Primary Care Doctor * DATE OF OPERATION: 10/15/19 - ROOM #335 DATE OF : 88 SURGEON: Joey Martinez MD BUSINESS RELATIONS MANAGER: TEDDY Oneill. ANESTHESIOLOGIST: Dr. French. ANESTHESIA: General. PRE-OP DIAGNOSIS: Abdominal pain. POST-OP DIAGNOSIS: Abdominal pain. OPERATIVE PROCEDURE: Diagnostic laparoscopy. ESTIMATED BLOOD LOSS: Minimal blood loss. IV FLUIDS: Minimal crystalloid fluid given. SPECIMEN: None. COMPLICATIONS: None. FINDINGS: Scant free fluid, non-chylous. DESCRIPTION OF PROCEDURE: The patient was followed through the course of the day. She had significant abdominal pain that minimally relented. She had loose bowel movements. She was started on antibiotics, but with continued pain and a concern for contrast in a remnant stomach, I recommended diagnostic laparoscopy. I outlined the details of the procedure to her and her mother going over the risks, benefits, and alternatives. We spoke about the possible complications, which included, not limited to bleeding, infection, need for revision of jejunojejunostomy, need for possible remnant gastrostomy, postop complications which include injury to adjacent organs and even the possibility for return to operating room. The patient signed consent. She was marked. She was taken to the operating room, placed on the operating table in supine position. She had already had antibiotics on board. Sequential devices were placed on bilateral lower extremities. General anesthesia was induced. Toney catheter was inserted. The patient's abdomen was prepped and draped in standard surgical fashion. Timeout was performed. A supraumbilical incision was made. This was deepened down to the anterior fascia, which was elevated. Posterior fascia was similarly elevated and incised , and then direct visualization to the abdomen was made and a 12 mm blunt trocar was inserted. The abdomen was allowed to insufflate to a pressure of 15 mmHg. The patient tolerated the insufflation well and laparoscope was inserted. There was no evidence of injury from the trocar insertion. Review of the abdomen showed normal- appearing bowel without any changes, normal peristalsis, it was not dilated, liver appeared normal. There was scant ascitic fluid in the pelvis. Additional trocars were placed in the following position: A 5 mm in the left lower quadrant, 5 mm in right upper quadrant. We started at the terminal ileum and isolated this and ran this retrograde right up to the jejunojejunostomy, which did not appear dilated as we had anticipated from the CT scan. This was run retrograde along the biliopancreatic limb to the ligament of Treitz and it was normal, again showing evidence of peristalsis. The Colette limb was similarly run retrograde right up to stomach pouch, which appeared intact without any exudate and no material. The remnant stomach only appeared minimally dilated, it was pink and otherwise healthy appearing. Liver was within normal limits and the gallbladder was also soft and showed no inflammatory changes. Next, we looked at the jejunojejunostomy and looked for any injuries to this, any signs of changes or intussusception and there were none. The mesentery of this was adhered to the proximal Colette limb as one would expect. There was no defect in the mesentery. Attention was turned towards the retro Colette limb area and this opening was appreciated and I decided to make a closure of this in case this was a portion of the problem. Using a 2-0 silk suture, a running stitch was utilized from the mesentery of the Colette limb on the transverse mesocolon right up to the bowel itself and this was tied to obliterate this space. We did suction the pelvis of ascites and then closed the umbilical port site with an 0 Vicryl suture using an Endo Close device. The trocars removed under direct vision, the abdomen was allowed to collapse, and all three skin incisions were reapproximated with 4-0 Monocryl subcuticular sutures followed by Steri-Strips and sterile dressing. [id number]/[facility] #: [id number] LUIS MANUEL
[2019-10-16] MEDS: Metoclopramide IV* 5 MG/ML 2 ML VIAL IV SLOW PU PRN ×3 (03:52→21:56)
[2019-10-16] MEDS: ZOSYN 3.375 GM Q8H per EXTENDED INFUSION IVPB SCH ×6 (05:34→22:13)
[2019-10-16] MEDS: NS 0.9% 1000 ML** 1,000 ML IV SCH ×3 (05:37→20:14)
--- NOTE | 2019-10-16 09:27 | PN ---
Progress Note - Progress Note Date of Service: 10/16/19 Note: S: POD #1/2. Having pain worse than any she's had before. Feels her pre- operative pain, mostly L sided, in addition to surgical pain, norma at umbilicus. Some nausea; no vomiting. Itching. No flatus. Has ambulated. O: Vital Signs - 8 hr 10/16/19 10/16/19 10/16/19 02:30 02:59 03:03 Temperature 98.6 F Pulse Rate 99 Respiratory 16 16 16 Rate Blood Pressure 99/53 (mmHg) O2 Sat by Pulse 100 Oximetry 10/16/19 10/16/19 10/16/19 04:09 05:31 05:40 Temperature Pulse Rate Respiratory 16 16 16 Rate Blood Pressure (mmHg) O2 Sat by Pulse Oximetry 10/16/19 10/16/19 10/16/19 07:47 08:14 08:16 Temperature 98.7 F Pulse Rate 106 Respiratory 16 18 15 Rate Blood Pressure 104/58 (mmHg) O2 Sat by Pulse 99 Oximetry Intake and Output Last 24 Hours 10/14/19 10/15/19 10/16/19 10/17/19 06:59 06:59 06:59 06:59 Intake Total 1999 2779 Output Total 300 1400 350 Balance 1700 1379 -350 Weight 130 lb Intake: IV Fluids 1999 2384 NS (0.9%) 979 IVPB 100 ABX - ZOSYN 100 Oral 295 Output: Urine 300 1400 350 Other: # Bowel Movements 0 Gen: NAD, but somewhat anxious Heart: reg Lungs: clear Abd: few BS; lap sites ok; soft; moderately severe incisional tenderness A: s/p negative diagnostic laparoscopy, now with increased pain, itching P: will offer 1 mg dilaudid; also bendryl prn; clears as augustina; cont IV abx ( discussed w/ Dr. Martinez who was also in to see her.)
[2019-10-16] MEDS: diPHENhydraMINE IV* 50 MG/ML 1 ml VIAL (BENADRYL) IV PRN ×3 (09:29→22:07)
[2019-10-16] MEDS: HYDROmorphone INJ1* 1 MG/ML SYRINGE IV SLOW PU PRN ×4 (09:31→20:02)
[2019-10-16] MEDS ORDERED: Ketorolac INJ* 30 MG/ML 1 ML VIAL ONE (10:34)
[2019-10-16] MEDS ORDERED: oxyCODONE/Acetamin 5/325 MG* TAB PO PRN (18:19)
[2019-10-16] MEDS ORDERED: Acetaminophen TAB* 325 MG PO PRN (18:19)
[2019-10-16] MEDS: Ketorolac INJ* 30 MG/ML 1 ML VIAL IV PRN (20:00)
[2019-10-17] MEDS: Metoclopramide IV* 5 MG/ML 2 ML VIAL IV SLOW PU PRN ×2 (03:48→10:25)
[2019-10-17] MEDS: HYDROmorphone INJ1* 1 MG/ML SYRINGE IV SLOW PU PRN (03:51)
[2019-10-17] MEDS: NS 0.9% 1000 ML** 1,000 ML IV SCH ×3 (04:03→20:21)
[2019-10-17] MEDS: ZOSYN 3.375 GM Q8H per EXTENDED INFUSION IVPB SCH ×6 (05:33→21:50)
--- NOTE | 2019-10-17 08:51 | PN ---
Progress Note - Progress Note Date of Service: 10/17/19 SOAP: Subjective: C/O nausea, wretching, epigastric pain from wretching, LUQ pain Minimal flatus neg BM [] Objective: Vital Signs Temp 99.4 F 10/17/19 08:10 Pulse 77 10/17/19 08:10 Resp 16 10/17/19 08:10 BP 109/53 10/17/19 08:10 Pulse Ox 100 10/17/19 08:10 Intake & Output 10/16/19 10/17/19 10/17/19 18:59 06:59 18:59 Intake Total 2918 2879 Output Total 1675 400 Balance 1243 2479 Intake: IV Fluids 848 1979 ABX - ZOSYN 104 NS (0.9%) 848 1875 IVPB 210 ABX - ZOSYN 210 Oral 1860 900 Output: Urine 1675 400 Other: # Voids 3 Pex: Gen: NAD Chest: CTA CVS: RRR Abd: + LUQ tender to palp, Incisional tenderness dressings intact, umbilical with minimal blood stain + BS's Ext: calves soft non tender [] Assessment: 29 yo female POD 2 S/P negative diagnostic laparoscopy. Reglan and scopalamine patch for nausea currently [] Plan: will get a flu swab rapid test, start PPI. continue current meds. Patient also seen and examined by Dr Martinez []
[2019-10-17] MEDS: Pantoprazole IV* 40 MG IV SCH (10:25)
[2019-10-17] MEDS: HYDROmorphone INJ* 0.5 MG/0.5 ML SYRINGE IV SLOW PU PRN (10:25)
[2019-10-17] MEDS: Ondansetron INJ* 2 MG/ML VIAL IV PRN (13:55)
[2019-10-17] MEDS: Ketorolac INJ* 30 MG/ML 1 ML VIAL IV PRN ×2 (13:55→20:22)
[2019-10-17 17:24] LABS: Influenza A Molecular NEGATIVE (Negative); Influenza B Molecular NEGATIVE (Negative)
[2019-10-17 19:59] LABS: Urine Appearance Cloudy; Urine Bilirubin Negative (Negative); Urine Blood Negative (Negative); Urine Color Amber; Urine Glucose Negative (Negative); Urine Ketones 1+ (Negative); Urine Nitrite Negative (Negative); Urine Protein 1+(30 mg/dL) (Negative); Urine Specific Gravity 1.038 (1.010-1.030); Urine Urobilinogen Negative (Negative)
[2019-10-17 20:07] LABS: Urine Bacteria 1+ (Absent); Urine Red Blood Cell Trace(0-2/hpf) (Absent); Urine Squamous Epithelial Cell Present (Absent); Urine White Blood Cell Trace(0-5/hpf) (Absent)
[2019-10-17] MEDS: HYDROcodone/ACET. 7.5/325 LIQ* 15 ML UDC PO PRN (21:48)
[2019-10-17] MEDS: diPHENhydraMINE IV* 50 MG/ML 1 ml VIAL (BENADRYL) IV PRN (23:46)
[2019-10-18] MEDS: HYDROmorphone INJ* 0.5 MG/0.5 ML SYRINGE IV SLOW PU PRN ×3 (02:24→13:31)
[2019-10-18] MEDS: NS 0.9% 1000 ML** 1,000 ML IV SCH (04:33)
[2019-10-18 05:25] LABS: ABS Eosinophils 0.2 10^3/ul (0-0.6); ABS Lymphocytes 1.5 10^3/ul (1.0-4.8); ABS Monocytes 0.5 10^3/ul (0-0.8); ABS Neutrophils 2.1 10^3/ul (1.5-7.7); Eosinophil % 4.4 %; Hematocrit 29 % (35-47); Hemoglobin 9.7 g/dL (12.0-16.0); Lymphocyte % 34.3 %; Mean Corpuscular HGB Conc 34 g/dL (31-36); Mean Corpuscular Hemoglobin 28 pg (27-31); Mean Corpuscular Volume 83 fL (80-97); Mean Platelet Volume 8.9 fL (7.4-10.4); Nucleated Red Blood Cells % 0.1; Platelet Count 137 10^3/uL (150-450); Red Blood Count 3.43 10^6 /uL (3.70-4.87); Red Cell Distribution Width 14 % (10-15); White Blood Count 4.3 10^3/uL (3.5-10.8)
[2019-10-18] MEDS: HYDROcodone/ACET. 7.5/325 LIQ* 15 ML UDC PO PRN (05:31)
[2019-10-18] MEDS: ZOSYN 3.375 GM Q8H per EXTENDED INFUSION IVPB SCH ×2 (05:33)
[2019-10-18 05:40] LABS: BUN/Creatinine Ratio 7.5 (8-20); Calcium 7.7 mg/dL (8.6-10.3); EGFR African American 101.9 (>60); EGFR Non-African American 84.2 (>60); Potassium 3.4 mmol/L (3.5-5.0)
[2019-10-18] MEDS: Pantoprazole IV* 40 MG IV SCH (08:32)
[2019-10-18] MEDS: Metoclopramide IV* 5 MG/ML 2 ML VIAL IV SLOW PU PRN (08:32)
[2019-10-18] MEDS ORDERED: Fluconazole 150 MG TAB PO ONE (09:06)
[2019-10-18] MEDS ORDERED: Thiamine INJ* 100 MG, Folic Acid IV* 1 MG, Multiple Vitamin IV ADULT* 10 ML in D5NS 0.9... IV ONE (09:30)
[2019-10-18] MEDS: diPHENhydraMINE IV* 50 MG/ML 1 ml VIAL (BENADRYL) IV PRN (09:31)
--- NOTE | 2019-10-18 09:43 | PN ---
Progress Note - Progress Note Date of Service: 10/18/19 SOAP: Subjective: Pt seen and examined. Pt continues to complain of LUQ pain. no nausea. no recent retching. 1 loose Bm, some R back pain. Thinks she has yeast infection Objective: [ Temp Pulse Resp BP Pulse Ox 98 F 55 16 120/70 100 10/18/19 07:35 10/18/19 07:35 10/18/19 09:31 10/18/19 07:35 10/18/19 08:43 a and o x3, nad no additional exam performed labs noted Assessment: POD 3 dx lap, HD stable Plan: Diflucan oral meds banana bag
[2019-10-18] MEDS ORDERED: Pantoprazole TAB * 40 MG TAB PO SCH (10:00)
[2019-10-18 11:31] VITALS: BP 113/68
[2019-10-18] MEDS: Ondansetron INJ* 2 MG/ML VIAL IV PRN (13:31)
--- NOTE | 2019-10-18 15:50 | DS ---
29 yo F admitted on 10/14/19 for ABD pain and discharged today 10/18/19 Discharge diagnosis: S/P diagnostic laparoscopy on 10/15/19 (negative), ABD pain , enteritis, possible PUD Assessment of pt condition at time of discharge: She is feeling better with minimal pain and nausea. Tolerating PO intake well, ambulating, passing BM and flatus. No fever or chills. Vitals stable. Pertinent physical findings: Some mild diffuse ABD pain and resolving nausea, no remarkable symptoms otherwise. Labs: Unremarkable Condition and disposition: Stable, improving and ready to go home. Discharge instructions given regarding course of diet, activity, wound care, medications, and return to work. Informed to call [facility] or go to ER if significant pain or fever develops. Pt will be discharged with 3 additional days of Augmentin and PPI.
[2019-10-18] MEDS ORDERED: Amoxicillin/Clavulanate TAB* 875 MG PO SCH (21:00)
== END 2019-10-18 16:40 | disposition home or self-care (01) | DRG 229 ==
LOC: ED 00:35 → SSU 04:25 → OBSVTOIN 10-17 09:00 → SSU 10-17 17:35
PROVIDERS: ADMIT Internal Medicine; ATTEND Surgery
PROC: 0W9H4ZZ Drainage of Retroperitoneum, Percutaneous Endoscopic Approach (ICD-10-PCS; 2019-10-15)
PROC: 0DQV4ZZ Repair Mesentery, Percutaneous Endoscopic Approach (ICD-10-PCS; principal; 2019-10-15 15:00)
DX: K52.9 Noninfective gastroenteritis and colitis, unspecified (principal); R18.8 Other ascites; K27.9 Peptic ulcer, site unspecified, unspecified as acute or chronic, without hemorrhage or perforation; F41.9 Anxiety disorder, unspecified; J45.909 Unspecified asthma, uncomplicated; G47.30 Sleep apnea, unspecified; K21.9 Gastro-esophageal reflux disease without esophagitis; G43.909 Migraine, unspecified, not intractable, without status migrainosus; F50.9 Eating disorder, unspecified; F31.9 Bipolar disorder, unspecified; F17.210 Nicotine dependence, cigarettes, uncomplicated; L29.9 Pruritus, unspecified; R11.0 Nausea; Z87.442 Personal history of urinary calculi; Z98.84 Bariatric surgery status; Z88.1 Allergy status to other antibiotic agents; Z88.8 Allergy status to other drugs, medicaments and biological substances; Z88.2 Allergy status to sulfonamides; Z68.25 Body mass index [BMI] 25.0-25.9, adult
CPT/HCPCS: 36415; 74019; 74177; 80048; 80053; 81003; 81015; 83690; 84702; 85025; 87040; 87086; 96361; 96374; 96375; 96376; 99284; A9270-GY; G0378; J1170; J1200; J1885; J2270; J2405; J2543; J2704; J2710; J2765; J3010; J3030; J3411; Q9967

== ENCOUNTER 2019-12-09 10:02 | Emergency (ER) | payer BC ==
--- OUTSIDE RECORDS SUMMARY | 2019-12-09 10:08 | XMS REPORT | Continuity of Care Document ---
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 Problems Active Problems Provider Date Pain in right arm Vasiliy Lemon MD Onset: 11/26/2016 Obstructive sleep apnea syndrome Marva Trjeo DNP, RN, BOOTH MANAGER-BC Onset: 05/2018 Body mass index 40+ - severely Marva Trejo DNP, RN, BOOTH MANAGER-BC Onset: 2017 obese Social History Type Date Description Comments Sex Unknown Tobacco Use Start: Unknown Light tobacco smoker (10 or fewer cigarettes/day) ETOH Use Denies alcohol use Recreational Drug Use Denies Drug Use Tobacco Use Start: Unknown End: Patient is a former smoker Unknown Tobacco Use Start: Unknown Light tobacco smoker (10 or fewer cigarettes/day) Smoking Status Reviewed: 10/29/19 Light tobacco smoker (10 or fewer cigarettes/day) Exercise Type/Frequency Exercises regularly Allergies, Adverse Reactions, Alerts Active Allergies Reaction Severity Comments Date Clindamycin 02/19/2015 Compazine 02/19/2015 Bactrim 02/19/2015 Medications Active Medications SIG Qnty Indications Ordering Provider Date Tylenol Extra taking 2 tablet po Unknown Strength prn Sumatriptan Succinate 1 tab twice a day Unknown max 2 days a week 100mg Tablets Opurity Bariatric 1 tab po qd Unknown Vitamin Omeprazole 1 by mouth every Unknown 40mg day Capsules DR Iron (Ferrous take one tablet by Unknown Sulfate) mouth daily. Pt 142(45Fe) mg states she does not Tablets ER take daily due to it causing stomach discomfort Medications Administered in Office Medication SIG Qnty Indications Ordering Provider Date PPD Injection Tanmay Aldrich MD 04/16/2019 Immunizations Description No Information Available Vital Signs Date Vital Result Comment 10/29/2019 2:31pm Height 61 inches 5'1" Weight 125.00 lb Heart Rate 90 /min BP Systolic Sitting 103 mmHg BP Diastolic Sitting 64 mmHg Body Temperature 98.6 F O2 % BldC Oximetry 96 % BMI (Body Mass Index) 23.6 kg/m2 03/30/2019 2:42pm Height 61 inches 5'1" Weight 150.00 lb with shoes Heart Rate 68 /min BP Systolic Sitting 100 mmHg lue reg cuff BP Diastolic Sitting 68 mmHg lue reg cuff BP Systolic Standing 98 mmHg lue reg cuff BP Diastolic Standing 64 mmHg lue reg cuff Respiratory Rate 12 /min BMI (Body Mass Index) 28.3 kg/m2 Ejection Fraction 55-60% echo. 02/02/17 Results Test Acquired Date Facility Test Result H/L Range Note Laboratory test 10/29/2019 [facility] C Reactive <pending> finding [address] [place] [address] [phone] Lipase <pending> Amylase <pending> Laboratory test 09/22/2019 [facility] Rapid Strep Negative Negative [address] [place] [address] [phone] Rapid Influenza 09/22/2019 [facility] Influenza A NEGATIVE Negative 2 A & B Molecular [address] [place] [address] [phone] Influenza B Molecular NEGATIVE Negative 1 Food Taster: [id number] 2 Food Taster: [id number] Procedures Date Code Description Status 10/15/2019 20629 Laparoscopy, Surgical,Abdomen,Peritoneum,Omentum Completed Diagnostic Medical Devices Description No Information Available Encounters Description No Information Available Assessments Date Code Description Provider 10/29/2019 R10.9 Unspecified abdominal pain Vanessa Dial NP 10/29/2019 Z98.84 Bariatric surgery status Vanessa Dial NP 10/29/2019 D64.9 Anemia, unspecified Vanessa Dial NP 10/18/2019 R10.9 Unspecified abdominal pain MARY RichC 10/18/2019 R10.9 Unspecified abdominal pain Joey Martinez MD, FACS 10/18/2019 Z98.84 Bariatric surgery status MARY RichC 10/18/2019 Z98.84 Bariatric surgery status Joey Martinez MD, [facility] 10/17/2019 R10.9 Unspecified abdominal pain Darrell Longoria PA-C 10/17/2019 R10.9 Unspecified abdominal pain Darrell Longoria PA-C 10/17/2019 Z98.84 Bariatric surgery status Darrell Longoria PA-C 10/17/2019 Z98.84 Bariatric surgery status Darrell Longoria PA-C 10/16/2019 R10.9 Unspecified abdominal pain TEDDY Tate 10/16/2019 Z98.84 Bariatric surgery status TEDDY Tate 10/15/2019 R10.9 Unspecified abdominal pain MARY MetzC 10/15/2019 Z98.84 Bariatric surgery status Darrell Longoria PA-C Plan of Treatment Future Appointment(s):11/20/2019 2:10 pm - Vanessa Dial NP at [facility] Xigjgbssrrwyuvtx87/30/2019 - Vanessa Dial, NPR10.9 Unspecified abdominal painZ98.84 Bariatric surgery smrgmiR07.9 Anemia, unspecified Functional Status Description No Information Available Mental Status Description No Information Available Referrals Description No Information Available
[2019-12-09 10:41] VITALS: BP 91/55
[2019-12-09 11:11] LABS: Influenza B Molecular POSITIVE (Negative)
--- NOTE | 2019-12-09 11:14 | UC ---
FLU HPI - HPI Summary HPI Summary: 29-year-old woman comes in with a chief complaint of influenza-like symptoms for 1 day. She's had fevers chills and body aches chest congestion. She's tried acetaminophen which does help some with the fevers. Also been having some wheezing. Patient does have asthma but does not have an inhaler at this time. Has had some green rhinorrhea and green sputum. Denies a sore throat. - History of Current Complaint Chief Complaint: UCGeneralIllness Stated Complaint: FLU SYMPTOMS Time Seen by Provider: 12/09/19 10:59 Hx Last Menstrual Period: 12/02/19 Pain Intensity: 1 - Allergy/Home Medications Allergies/Adverse Reactions: Allergies Allergy/AdvReac Type Severity Reaction Status Date / Time clindamycin Allergy Rash Verified 12/09/19 10:36 prochlorperazine Allergy See Comment Verified 12/09/19 10:36 [From Compazine] Sulfa (Sulfonamide Allergy Anaphylatic Verified 12/09/19 10:36 Antibiotics) Shock sulfamethoxazole Allergy Unknown Verified 12/09/19 10:36 [From Bactrim] Reaction Details trimethoprim [From Bactrim] Allergy Unknown Verified 12/09/19 10:36 Reaction Details PMH/Surg Hx/FS Hx/Imm Hx Previously Healthy: Yes Respiratory History: Asthma GI/ History: Gastroesophageal Reflux Neurological History: Migraine Other History Of: Negative For: HIV, Hepatitis B, Hepatitis C, Anticoagulant Therapy - Surgical History Surgical History: Yes Surgery Procedure, Year, and Place: APPENDECTOMY, 08/2014, Right ULNAR COLLATERAL LIGAMENT Sx 07/2015 gastric bypass revision, laparotomy sep 2019 - Family History Known Family History: Positive: Cardiac Disease, Hypertension, Other - Migraines - Social History Alcohol Use: None Substance Use Type: None Substance Use Comment - Amount & Last Used: PT denies use Smoking Status (MU): Light Every Day Tobacco Smoker Type: Cigarettes Amount Used/How Often: 5 cig/ day Length of Time of Smoking/Using Tobacco: at age 13 Have You Smoked in the Last Year: Yes When Did the Patient Quit Smoking/Using Tobacco: Quitting currently Household Exposure Type: Cigarettes - Immunization History Most Recent Influenza Vaccination: 2019 Most Recent Tetanus Shot: 05/2014 Most Recent Pneumonia Vaccination: none Review of Systems All Other Systems Reviewed And Are Negative: Yes Constitutional: Positive: Fever, Chills, Other - see hpi Eyes: Positive: Negative ENT: Positive: Ear Ache, Nasal Discharge, Sinus Congestion Respiratory: Positive: Cough, Other - see hpi Cardiovascular: Positive: Negative Gastrointestinal: Positive: Negative Motor: Positive: Negative Neurovascular: Positive: Negative Musculoskeletal: Positive: Myalgia Neurological: Positive: Headache Psychological: Positive: Negative Is Patient Immunocompromised?: No Physical Exam Triage Information Reviewed: Yes Appearance: No Pain Distress, Well-Nourished, Ill-Appearing - mild Vital Signs: Initial Vital Signs Temp 99 F 12/09/19 10:37 Pulse 118 12/09/19 10:37 Resp 20 12/09/19 10:37 BP 91/55 12/09/19 10:37 Pulse Ox 98 12/09/19 10:37 Vital Signs Reviewed: Yes Eye Exam: Normal Eyes: Positive: Conjunctiva Clear ENT: Positive: Pharynx normal, Nasal congestion, Nasal drainage, TMs normal Neck: Positive: Supple Respiratory: Positive: Lungs clear, Normal breath sounds, No respiratory distress Cardiovascular: Positive: RRR Musculoskeletal: Positive: Strength Intact, ROM Intact Neurological: Positive: Alert, Muscle Tone Normal Psychological: Positive: Age Appropriate Behavior Skin Exam: Normal Flu Course/Dx - Course Course Of Treatment: Positive for influenza. Will treat with Tamiflu. Also prescription for albuterol for the patient's asthma. Patient reports that usually with the influenza's she ends up with a bronchitis it's best treated with antibiotic therefore I prescribed azithromycin to be used if she does develop the bronchitis. Patient's to get reevaluated if worse or any questions or concerns. - Differential Dx/Diagnosis Provider Diagnosis: Influenza, Asthma Discharge ED - Sign-Out/Discharge Documenting (check all that apply): Patient Departure All imaging exams completed and their final reports reviewed: No Studies - Discharge Plan Condition: Stable Disposition: HOME Prescriptions: Albuterol HFA INHALER* [Ventolin HFA Inhaler*] 2 puff INH Q4H PRN #1 mdi PRN Reason: Wheezing Azithromyxin LO (NF) [Z-Lo (Zithromax) 250 mg tabs #6] 2 tab PO .TODAY, THEN 1 DAILY #6 tab Oseltamivir CAP* [Tamiflu CAP*] 75 mg PO BID #10 cap Patient Education Materials: Asthma (ED), Influenza (ED) Forms: *Work Release Referrals: [facility] [place] [facility] [Outside] Additional Instructions: FOLLOW UP WITH YOUR DOCTOR IF NOT COMPLETELY IMPROVED. GET REEVALUATED SOONER IF NOT IMPROVED OR WORSE OR ANY QUESTIONS OR CONCERNS. - Billing Disposition and Condition Condition: STABLE Disposition: Home
== END 2019-12-09 11:32 | disposition home or self-care (01) ==
LOC: UCEAST 10:02
DX: J45.909 Unspecified asthma, uncomplicated (principal); J11.1 Influenza due to unidentified influenza virus with other respiratory manifestations; F17.210 Nicotine dependence, cigarettes, uncomplicated; Z88.1 Allergy status to other antibiotic agents; Z88.2 Allergy status to sulfonamides; Z88.8 Allergy status to other drugs, medicaments and biological substances
CPT/HCPCS: 87651; 99212; G0463

== ENCOUNTER 2020-03-28 18:38 | Observation (INO) ==
[2020-03-28] MEDS ORDERED: NS 0.9% 1000 ml BAG 1,000 ML IV ONE ×2 (19:06→21:32)
[2020-03-28 19:27] LABS: ABS Basophils 0.1 10^3/ul (0-0.2); ABS Eosinophils 0.1 10^3/ul (0-0.6); ABS Lymphocytes 2.5 10^3/ul (1.0-4.8); ABS Monocytes 0.3 10^3/ul (0-0.8); Eosinophil % 1.2 %; Hematocrit 40 % (35-47); Hemoglobin 13.4 g/dL (12.0-16.0); Lymphocyte % 35.6 %; Mean Corpuscular HGB Conc 33 g/dL (31-36); Mean Corpuscular Hemoglobin 27 pg (27-31); Mean Corpuscular Volume 83 fL (80-97); Mean Platelet Volume 9.2 fL (7.4-10.4); Nucleated Red Blood Cells % 0.1; Platelet Count 286 10^3/uL (150-450); Red Blood Count 4.87 10^6 /uL (3.70-4.87); Red Cell Distribution Width 14 % (10-15); White Blood Count 6.9 10^3/uL (3.5-10.8)
[2020-03-28 19:50] LABS: ALT 16 U/L (7-52); Albumin 4.1 g/dL (3.2-5.2); Albumin/Globulin Ratio 1.8 (1-3); Alkaline Phosphatase 49 U/L (34-104); BUN/Creatinine Ratio 16.3 (8-20); Blood Urea Nitrogen 13 mg/dL (6-24); CO2 Carbon Dioxide 22 mmol/L (22-32); Calcium 8.9 mg/dL (8.6-10.3); Chloride 106 mmol/L (101-111); EGFR African American 101.9 (>60); EGFR Non-African American 84.2 (>60); Globulin 2.3 g/dL (2-4); Glucose 154 mg/dL (70-100); HCG Pregnancy < 0.60 mIU/mL; Magnesium 2.1 mg/dL (1.9-2.7); Sodium 137 mmol/L (135-145); Total Protein 6.4 g/dL (6.4-8.9)
[2020-03-28 20:00] LABS: Anion Gap 9 mmol/L (2-11)
[2020-03-28 20:52] LABS: BUN/Creatinine Ratio 16.2 (8-20); Calcium 7.7 mg/dL (8.6-10.3); EGFR African American 111.5 (>60); EGFR Non-African American 92.1 (>60); Potassium 3.7 mmol/L (3.5-5.0)
[2020-03-28 21:57] LABS: Urine Appearance Clear; Urine Bilirubin Negative (Negative); Urine Blood Negative (Negative); Urine Color Yellow; Urine Glucose Negative (Negative); Urine Ketones Trace (Negative); Urine Nitrite Negative (Negative); Urine Protein Negative (Negative); Urine Specific Gravity 1.013 (1.010-1.030); Urine Urobilinogen Negative (Negative)
[2020-03-28 22:15] LABS: Urine Benzodiazepine Screen None Detected (None Detect); Urine Opiates Screen None Detected (None Detect)
[2020-03-29] MEDS ORDERED: Albuterol HFA INHALER 8 gm MDI INH PRN (01:14)
[2020-03-29] MEDS: NS 0.9% 1000 ml BAG 1,000 ML IV SCH ×2 (01:46→12:02)
[2020-03-29 07:38] LABS: BUN/Creatinine Ratio 19.7 (8-20); Calcium 8.1 mg/dL (8.6-10.3); EGFR Non-African American 96.7 (>60); Potassium 3.9 mmol/L (3.5-5.0)
[2020-03-29 16:07] VITALS: BP 101/62
== END 2020-03-29 16:50 | disposition home or self-care (01) ==
LOC: MEDTELE 18:38 → ED 18:38 → MEDTELE 03-29 01:35
PROVIDERS: ADMIT Internal Medicine; ATTEND Specialist

== ENCOUNTER 2021-06-30 18:38 | Inpatient (IN) ==
[2021-06-30] MEDS ORDERED: Lidocaine PATCH 5% PATCH TRANSDERM ONE (20:23)
[2021-06-30] MEDS ORDERED: oxyCODONE/Acetamin 5/325 mg TAB PO ONE (23:07)
[2021-07-01] MEDS ORDERED: Lidocaine 1% MPF 5 ML VIAL INJ ONE (00:48)
[2021-07-01] MEDS ORDERED: HYDROmorphone 1 MG/1 ML SYRINGE IV SLOW PU PRN (02:40)
[2021-07-01] MEDS ORDERED: Trimethobenzamide *IM* 100 mg/ml 2 ml VIAL (200 mg) IM PRN ×2 (03:00→07:00)
[2021-07-01 03:42] LABS: ABS Lymphocytes 0.8 10^3/ul (1.0-4.8); ABS Monocytes 0.1 10^3/ul (0-0.8); ABS Neutrophils 6.3 10^3/ul (1.5-7.7); Hematocrit 42 % (35-47); Lymphocyte % 11.7 %; Mean Corpuscular HGB Conc 34 g/dL (31-36); Mean Corpuscular Hemoglobin 29 pg (27-31); Mean Corpuscular Volume 87 fL (80-97); Mean Platelet Volume 9.1 fL (7.4-10.4); Platelet Count 256 10^3/uL (150-450); Red Blood Count 4.83 10^6 /uL (3.70-4.87); Red Cell Distribution Width 13 % (10-15); White Blood Count 7.2 10^3/uL (3.5-10.8)
[2021-07-01 03:53] LABS: Rapid COVID-19 Molecular Undetected (Undetected)
[2021-07-01 03:59] LABS: Blood Urea Nitrogen 10 mg/dL (6-24); CO2 Carbon Dioxide 24 mmol/L (22-32); Chloride 105 mmol/L (101-111); EGFR African American 105.8 (>60); EGFR Non-African American 87.4 (>60); Glucose 211 mg/dL (70-100); Sodium 136 mmol/L (135-145)
[2021-07-01 04:09] LABS: Anion Gap 7 mmol/L (2-11)
[2021-07-01] MEDS ORDERED: HYDROmorphone 0.5 MG/0.5 ML SYRINGE IV SLOW PU ONE (05:57)
[2021-07-01] MEDS ORDERED: ACARBOSE 25 MG PO SCH (09:00)
[2021-07-01] MEDS: ACARBOSE 25 MG PO SCH ×3 (09:08→17:47)
[2021-07-01] MEDS: Lidocaine Patch REMOVE PATCH PATCH OFF SCH (13:01)
[2021-07-01] MEDS ORDERED: HYDROmorphone 0.5 MG/0.5 ML SYRINGE IV SLOW PU PRN (16:06)
[2021-07-01] MEDS: NORETHINDRONE E ESTRADIOL IRON PO SCH (21:24)
[2021-07-02] MEDS: ACARBOSE 25 MG PO SCH ×3 (08:19→17:41)
[2021-07-02] MEDS: Lidocaine Patch REMOVE PATCH PATCH OFF SCH (08:21)
[2021-07-02] MEDS: NORETHINDRONE E ESTRADIOL IRON PO SCH (08:21)
[2021-07-02] MEDS ORDERED: Lidocaine PATCH 5% PATCH TRANSDERM SCH (10:00)
[2021-07-02 14:02] LABS: Urine Appearance Clear; Urine Bilirubin Negative (Negative); Urine Blood Negative (Negative); Urine Color Straw; Urine Glucose Negative (Negative); Urine Ketones Negative (Negative); Urine Nitrite Negative (Negative); Urine Protein Negative (Negative); Urine Specific Gravity 1.006 (1.002-1.030); Urine Urobilinogen Negative (Negative)
[2021-07-02] MEDS ORDERED: Lidocaine 1% VIAL 10 MG/ML VIAL ONE (14:08)
[2021-07-02] MEDS ORDERED: Lidocaine Patch REMOVE PATCH PATCH OFF SCH (21:00)
[2021-07-02] MEDS ORDERED: levETIRAcetam 1000MG IVPREMIX 1,000 MG/100 ML BAG IVPB ONE (21:53)
[2021-07-02] MEDS ORDERED: Naloxone 0.4 mg VIAL 0.4 mg/ml 1 ml VIAL IV PUSH ONE (22:00)
[2021-07-02] MEDS ORDERED: Diazepam INJ CARPUJECT 5 MG/ML IV ONE (22:26)
[2021-07-02 23:00] LABS: Hematocrit 38 % (35-47); Hemoglobin 12.7 g/dL (12.0-16.0); Mean Corpuscular HGB Conc 33 g/dL (31-36); Mean Corpuscular Hemoglobin 29 pg (27-31); Mean Corpuscular Volume 88 fL (80-97); Mean Platelet Volume 8.5 fL (7.4-10.4); Platelet Count 251 10^3/uL (150-450); Red Blood Count 4.36 10^6 /uL (3.70-4.87); Red Cell Distribution Width 13 % (10-15); White Blood Count 10.8 10^3/uL (3.5-10.8)
[2021-07-02] MEDS ORDERED: NS 0.9% 1,000 ML IV ONE (23:00)
[2021-07-02] MEDS ORDERED: NS 0.9% 1,000 ML IV SCH (23:00)
[2021-07-02 23:09] LABS: Activated Partial Thrombo Time 27.9 seconds (26.0-38.0); INR 1.07 (0.86-1.15)
[2021-07-02 23:19] LABS: Albumin 3.3 g/dL (3.2-5.2); Albumin/Globulin Ratio 1.4 (1-3); Calcium 8.1 mg/dL (8.6-10.3); EGFR African American 109.1 (>60); EGFR Non-African American 90.1 (>60); Globulin 2.3 g/dL (2-4); Potassium 4.3 mmol/L (3.5-5.0); Total Bilirubin 0.2 mg/dL (0.2-1.0); Total Protein 5.6 g/dL (6.4-8.9)
[2021-07-02] MEDS ORDERED: Succinylcholine 200 mg VIAL 20 mg/ml 10 ml VIAL (200 mg) ONE (23:22)
[2021-07-02] MEDS ORDERED: Rocuronium 50 mg VIAL 10 mg/ml 5 ml VIAL (50 mg) ONE (23:22)
[2021-07-02] MEDS ORDERED: Etomidate 40 mg/20 ml (2 MG/ML) 20 ml VIAL (40 mg) ONE (23:32)
[2021-07-02 23:38] LABS: Prolactin 20.9 ng/mL (1.0-25.0)
[2021-07-02] MEDS ORDERED: Etomidate 20 mg/10 ml 2 MG/ML 10 ml VIAL ONE (23:38)
[2021-07-02] MEDS ORDERED: Midazolam 2 mg/2 ml VIAL 1 mg/ml 2 ml VIAL (2 mg) IV SLOW PU ONE (23:51)
[2021-07-02] MEDS ORDERED: Lactated Ringers 1000 ml BAG 1,000 ML IV ONE (23:53)
[2021-07-03] MEDS ORDERED: Midazolam 2 mg/2 ml VIAL 1 mg/ml 2 ml VIAL (2 mg) IV SLOW PU ONE (00:09)
[2021-07-03] MEDS: Midazolam 50 MG VIAL IV DRIP 50 ML IV SCH ×3 (00:17→07:48)
[2021-07-03] MEDS ORDERED: levETIRAcetam 1000MG IVPREMIX 1,000 MG/100 ML BAG IVPB ONE (00:28)
[2021-07-03] MEDS: Chlorhexidine MOUTHWASH 0.12% 15 ML UDC TOPICAL SCH ×5 (04:31→20:46)
[2021-07-03 05:28] LABS: ABS Basophils 0.1 10^3/ul (0-0.2); ABS Lymphocytes 1.9 10^3/ul (1.0-4.8); ABS Monocytes 0.8 10^3/ul (0-0.8); ABS Neutrophils 8.7 10^3/ul (1.5-7.7); Eosinophil % 0.1 %; Hematocrit 38 % (35-47); Hemoglobin 12.6 g/dL (12.0-16.0); Lymphocyte % 16.5 %; Mean Corpuscular HGB Conc 34 g/dL (31-36); Mean Corpuscular Hemoglobin 29 pg (27-31); Mean Corpuscular Volume 87 fL (80-97); Mean Platelet Volume 8.5 fL (7.4-10.4); Platelet Count 215 10^3/uL (150-450); Red Blood Count 4.31 10^6 /uL (3.70-4.87); Red Cell Distribution Width 13 % (10-15); White Blood Count 11.5 10^3/uL (3.5-10.8)
[2021-07-03 05:38] LABS: Calcium 7.7 mg/dL (8.6-10.3)
[2021-07-03 05:44] LABS: EGFR African American 128.6 (>60); EGFR Non-African American 106.3 (>60)
[2021-07-03] MEDS: levETIRAcetam 500 MG IVPREMIX 500 MG/100 ML BAG IV SCH ×2 (07:35→21:07)
[2021-07-03 11:23] LABS: PCO2 Arterial 34 mmHg (35-45); PO2 Arterial 143 mmHg (80-100)
[2021-07-03] MEDS ORDERED: Albuterol/Ipratropium NEB.SOL (2.5/0.5 MG) 3 ML NEB.SOLN INH ONE (14:11)
[2021-07-03] MEDS: Albuterol/Ipratropium NEB.SOL (2.5/0.5 MG) 3 ML NEB.SOLN ONE ×2 (14:18→21:03)
[2021-07-03] MEDS ORDERED: Rocuronium 50 mg VIAL 10 mg/ml 5 ml VIAL (50 mg) ONE (16:03)
[2021-07-03] MEDS ORDERED: Succinylcholine 200 mg VIAL 20 mg/ml 10 ml VIAL (200 mg) ONE (16:03)
[2021-07-03 16:53] LABS: TSH Ultra Thyroid Stim Horm 2.04 mcIU/mL (0.34-5.60)
[2021-07-03] MEDS: NORETHINDRONE E ESTRADIOL IRON PO SCH (22:07)
[2021-07-04 05:53] LABS: ABS Basophils 0.1 10^3/ul (0-0.2); ABS Eosinophils 0.1 10^3/ul (0-0.6); ABS Lymphocytes 2.3 10^3/ul (1.0-4.8); ABS Monocytes 0.5 10^3/ul (0-0.8); ABS Neutrophils 4.7 10^3/ul (1.5-7.7); Eosinophil % 1.1 %; Hematocrit 36 % (35-47); Lymphocyte % 29.6 %; Mean Corpuscular HGB Conc 34 g/dL (31-36); Mean Corpuscular Hemoglobin 29 pg (27-31); Mean Corpuscular Volume 87 fL (80-97); Mean Platelet Volume 8.4 fL (7.4-10.4); Platelet Count 213 10^3/uL (150-450); Red Blood Count 4.12 10^6 /uL (3.70-4.87); Red Cell Distribution Width 13 % (10-15); White Blood Count 7.6 10^3/uL (3.5-10.8)
[2021-07-04 06:09] LABS: Calcium 8.1 mg/dL (8.6-10.3); EGFR African American 114.3 (>60); EGFR Non-African American 94.5 (>60); Magnesium 1.9 mg/dL (1.9-2.7); Potassium 4.1 mmol/L (3.5-5.0)
[2021-07-04] MEDS ORDERED: ACARBOSE 25 MG PO SCH (07:30)
[2021-07-04] MEDS: levETIRAcetam 500 MG IVPREMIX 500 MG/100 ML BAG IV SCH ×2 (07:37→20:52)
[2021-07-04] MEDS: NORETHINDRONE E ESTRADIOL IRON PO SCH (09:01)
[2021-07-04] MEDS ORDERED: Magnesium Sulfate 2 gm BAG 2 GM/50 ML BAG IVPB ONE (09:48)
[2021-07-04] MEDS: Ondansetron 4 mg VIAL 2 MG/ML 2 ml VIAL IV PRN (10:18)
[2021-07-04] MEDS ORDERED: ACARBOSE 50 MG PO PRN (10:28)
[2021-07-04] MEDS: ACARBOSE 25 MG PO SCH ×2 (12:42→17:59)
[2021-07-04] MEDS ORDERED: Lactated Ringers 1000 ml BAG 1,000 ML IV ONE (14:17)
[2021-07-04] MEDS: Benzocaine/Menthol LOZ PO PRN (16:07)
[2021-07-05] MEDS: Acetaminophen IV 1 GM/100ML 100 ML IV PRN ×2 (02:05→08:30)
[2021-07-05] MEDS: Ondansetron 4 mg VIAL 2 MG/ML 2 ml VIAL IV PRN ×2 (02:16→10:00)
[2021-07-05 04:03] LABS: ABS Basophils 0.1 10^3/ul (0-0.2); ABS Eosinophils 0.2 10^3/ul (0-0.6); ABS Lymphocytes 2.3 10^3/ul (1.0-4.8); ABS Monocytes 0.6 10^3/ul (0-0.8); ABS Neutrophils 5.6 10^3/ul (1.5-7.7); Eosinophil % 1.9 %; Hematocrit 36 % (35-47); Hemoglobin 12.3 g/dL (12.0-16.0); Lymphocyte % 26.5 %; Mean Corpuscular HGB Conc 34 g/dL (31-36); Mean Corpuscular Hemoglobin 30 pg (27-31); Mean Corpuscular Volume 87 fL (80-97); Mean Platelet Volume 8.2 fL (7.4-10.4); Nucleated Red Blood Cells % 0.1; Platelet Count 224 10^3/uL (150-450); Red Blood Count 4.16 10^6 /uL (3.70-4.87); Red Cell Distribution Width 13 % (10-15); White Blood Count 8.8 10^3/uL (3.5-10.8)
[2021-07-05 04:21] LABS: Calcium 8.2 mg/dL (8.6-10.3); EGFR African American 110.8 (>60); EGFR Non-African American 91.5 (>60); Potassium 4.1 mmol/L (3.5-5.0)
[2021-07-05] MEDS: Benzocaine/Menthol LOZ PO PRN (05:41)
[2021-07-05] MEDS ORDERED: Enoxaparin 40 MG/0.4 ML SYR SUBCUT SCH (08:00)
[2021-07-05] MEDS: NORETHINDRONE E ESTRADIOL IRON PO SCH (08:31)
[2021-07-05] MEDS ORDERED: Cyanocobalamin INJ 1,000 MCG/ML VIAL 1 ML VIAL IM ONE (09:00)
[2021-07-05] MEDS ORDERED: ACARBOSE 50 MG PO PRN (09:49)
[2021-07-05] MEDS ORDERED: ACARBOSE 25 MG PO PRN (10:00)
[2021-07-05] MEDS: ACARBOSE 25 MG PO SCH ×3 (10:22→16:36)
[2021-07-05] MEDS: Acetaminophen IV 1 GM/100ML 100 ML IV SCH ×2 (10:22→16:32)
[2021-07-05] MEDS ORDERED: Morphine 2 MG/ML SYRINGE IV PRN (10:55)
[2021-07-05] MEDS ORDERED: Buffered Lidocaine 1% SYRIN 1 ml INTRADERM ONE (11:02)
[2021-07-05] MEDS ORDERED: Diazepam INJ CARPUJECT 5 MG/ML IV PRN (16:35)
[2021-07-05] MEDS ORDERED: Gadoteridol (CONTRAST) 279.3 MG/ML 10 ML IV ONE (17:53)
[2021-07-05] MEDS: Lactated Ringers 1000 ml BAG 1,000 ML IV SCH (21:37)
[2021-07-06] MEDS: Acetaminophen IV 1 GM/100ML 100 ML IV SCH ×4 (00:50→23:52)
[2021-07-06] MEDS: NORETHINDRONE E ESTRADIOL IRON PO SCH ×2 (01:17→08:59)
[2021-07-06] MEDS: Lactated Ringers 1000 ml BAG 1,000 ML IV SCH ×2 (02:40→14:42)
[2021-07-06] MEDS: Benzocaine/Menthol LOZ PO PRN ×2 (04:07→11:05)
[2021-07-06 06:21] LABS: ABS Basophils 0.1 10^3/ul (0-0.2); ABS Eosinophils 0.2 10^3/ul (0-0.6); ABS Monocytes 0.6 10^3/ul (0-0.8); Eosinophil % 2.6 %; Hematocrit 38 % (35-47); Hemoglobin 12.6 g/dL (12.0-16.0); Lymphocyte % 28.8 %; Mean Corpuscular HGB Conc 33 g/dL (31-36); Mean Corpuscular Hemoglobin 29 pg (27-31); Mean Corpuscular Volume 88 fL (80-97); Mean Platelet Volume 8.5 fL (7.4-10.4); Platelet Count 228 10^3/uL (150-450); Red Blood Count 4.34 10^6 /uL (3.70-4.87); Red Cell Distribution Width 13 % (10-15); White Blood Count 6.8 10^3/uL (3.5-10.8)
[2021-07-06 06:25] LABS: Calcium 8.5 mg/dL (8.6-10.3); EGFR Non-African American 80.2 (>60); Potassium 4.1 mmol/L (3.5-5.0)
[2021-07-06] MEDS: ACARBOSE 25 MG PO SCH ×3 (08:57→17:42)
[2021-07-06] MEDS: Ondansetron 4 mg VIAL 2 MG/ML 2 ml VIAL IV PRN (13:13)
[2021-07-07] MEDS: ACARBOSE 25 MG PO SCH ×3 (08:27→17:57)
[2021-07-07] MEDS: Acetaminophen IV 1 GM/100ML 100 ML IV SCH ×2 (08:28→16:34)
[2021-07-07] MEDS: NORETHINDRONE E ESTRADIOL IRON PO SCH (08:30)
[2021-07-07] MEDS: Polyethylene Glycol 3350 17 GM PACKET PO PRN (09:58)
[2021-07-08] MEDS: Acetaminophen IV 1 GM/100ML 100 ML IV SCH ×3 (00:40→16:11)
[2021-07-08] MEDS: Lactated Ringers 1000 ml BAG 1,000 ML IV SCH (01:27)
[2021-07-08] MEDS: ACARBOSE 25 MG PO SCH ×3 (08:35→18:02)
[2021-07-08] MEDS: NORETHINDRONE E ESTRADIOL IRON PO SCH (08:36)
[2021-07-08] MEDS ORDERED: Senna TAB 8.6 mg TAB PO PRN (09:28)
[2021-07-08] MEDS ORDERED: Magnesium Hydroxide LIQ 30 ML UDC PO PRN (09:28)
[2021-07-08] MEDS: Polyethylene Glycol 3350 17 GM PACKET PO PRN (10:13)
[2021-07-08] MEDS: Magnesium Hydroxide LIQ 30 ML UDC PO SCH (21:25)
[2021-07-09] MEDS: Acetaminophen IV 1 GM/100ML 100 ML IV SCH ×3 (00:36→16:37)
[2021-07-09] MEDS: Magnesium Hydroxide LIQ 30 ML UDC PO SCH ×2 (08:40→21:34)
[2021-07-09] MEDS: NORETHINDRONE E ESTRADIOL IRON PO SCH (08:40)
[2021-07-09] MEDS: ACARBOSE 25 MG PO SCH ×3 (08:40→17:40)
[2021-07-09] MEDS ORDERED: Glycerin ADULT 2.4 gm SUPP PR ONE (11:17)
[2021-07-10] MEDS: Acetaminophen IV 1 GM/100ML 100 ML IV SCH ×2 (00:01→08:58)
[2021-07-10 05:42] VITALS: BP 98/64
[2021-07-10] MEDS: ACARBOSE 25 MG PO SCH (08:54)
[2021-07-10] MEDS: Magnesium Hydroxide LIQ 30 ML UDC PO SCH (08:59)
[2021-07-10] MEDS: NORETHINDRONE E ESTRADIOL IRON PO SCH (08:59)
== END 2021-07-10 10:50 | disposition home or self-care (01) | DRG 347 ==
LOC: SSU 18:38 → ED 18:38 → SUATTDRO 07-01 02:34 → SSU 07-01 05:40 → ICU 07-02 22:53 → SSU 07-04 14:00
PROVIDERS: ADMIT Internal Medicine; ATTEND Hospitalist

== ENCOUNTER 2023-12-14 05:52 | Observation (INO) ==
[~2023-12-14 05:52] MED LIST changes: -Buffered Lidocaine 0.9% SYRIN* 5 ML/SYR SYRINGE INTRADERM ONE; +Naloxone 0.4 mg VIAL 0.4 mg/ml 1 ml VIAL IV PRN; +fentaNYL 100 mcg/2 ml 50 MCG/ML VIAL IV PRN
[2023-12-14] MEDS ORDERED: ceFAZolin 2 GM PREMIX 2 GM/50 ML BAG ONE (06:16)
[2023-12-14] MEDS ORDERED: Acetaminophen IV 1 GM/100ML 1,000 MG/100 ML BAG IV SCH (06:30)
[2023-12-14 06:47] LABS: Rapid COVID-19 Molecular Undetected (Undetected)
[2023-12-14] MEDS ORDERED: fentaNYL 100 mcg/2 ml 50 MCG/ML VIAL ONE ×2 (07:01→09:47)
[2023-12-14] MEDS ORDERED: Midazolam 2 mg/2 ml VIAL 1 mg/ml 2 ml VIAL (2 mg) ONE (07:01)
[2023-12-14] MEDS ORDERED: Dexamethasone IV 4 MG/ML VIAL 1 ml VIAL ONE (07:02)
[2023-12-14] MEDS ORDERED: Propofol 10 MG/ML 20 ML BTL ONE ×4 (07:02→09:38)
[2023-12-14] MEDS ORDERED: Ondansetron 4 mg VIAL 2 MG/ML 2 ml VIAL ONE ×2 (07:02→11:25)
[2023-12-14] MEDS ORDERED: Lidocaine 2% PF 10 ML AMP (OR) ONE (07:02)
[2023-12-14] MEDS ORDERED: Rocuronium 50 mg VIAL 10 mg/ml 5 ml VIAL (50 mg) ONE ×2 (07:03→08:26)
[2023-12-14] MEDS ORDERED: Bupivacaine 0.25% SDV 30 ML ONE (07:12)
[2023-12-14] MEDS ORDERED: Lidocaine 1% w EPI 1:200,000 SDV 30 ML VIAL ONE (07:12)
[2023-12-14] MEDS ORDERED: Scopolamine 1 mg/72hr PATCH ONE (07:29)
[2023-12-14] MEDS ORDERED: HYDROmorphone 0.5 MG/0.5 ML SYRINGE ONE (08:14)
[2023-12-14] MEDS ORDERED: Acetaminophen IV 1 GM/100ML 1,000 MG/100 ML BAG IV ONE (08:21)
[2023-12-14] MEDS ORDERED: oxyCODONE/Acetamin 5/325 mg TAB PO PRN (09:55)
[2023-12-14] MEDS ORDERED: Metoclopramide 5 MG/ML VIAL (10 mg) ONE (09:56)
[2023-12-14] MEDS ORDERED: HYDROmorphone 1 MG/1 ML SYRINGE ONE (10:20)
[2023-12-14] MEDS: HYDROmorphone 1 MG/1 ML SYRINGE IV PRN (10:22)
[2023-12-14] MEDS: Metoclopramide 5 MG/ML VIAL (10 mg) IV SLOW PU ONE (10:27)
[2023-12-14] MEDS: Ondansetron 4 mg VIAL 2 MG/ML 2 ml VIAL IV PRN (11:42)
[2023-12-14] MEDS: Buffered Lidocaine 1% SYRIN 1 ml INTRADERM ONE (12:42)
[2023-12-14] MEDS: Lactated Ringers 1000 ml BAG 1,000 ML IV SCH (13:49)
[2023-12-14] MEDS: HYDROmorphone 0.5 MG/0.5 ML SYRINGE IV SLOW PU PRN (15:15)
[2023-12-14] MEDS: ACARBOSE 25 MG PO SCH (18:09)
[2023-12-15] MEDS: HYDROmorphone 0.5 MG/0.5 ML SYRINGE IV ONE (03:31)
[2023-12-15] MEDS: Ondansetron 4 mg VIAL 2 MG/ML 2 ml VIAL IV PRN (06:45)
[2023-12-15 09:46] VITALS: BP 120/71
== END 2023-12-15 11:50 | disposition home or self-care (01) ==
LOC: SSU 05:52 → OR 05:52
PROVIDERS: ADMIT Surgery; ATTEND Surgery